=== PATIENT | female | born 1985 | race American Indian/Alaskan Native ===

== ENCOUNTER 2016-08-31 09:32 | Emergency (ER) | payer SELFPAY ==
[2016-08-31] MEDS ORDERED: NORCO 5/325 PO PRN (12:03)
--- NOTE | 2016-08-31 12:10 | Emergency Department Report ---
- General Chief complaint: Skin/Abscess/Foreign Body Stated complaint: ABCESS Time Seen by Provider: 08/31/16 12:03 Source: patient Mode of arrival: Ambulatory Limitations: No Limitations - History of Present Illness Initial comments: 30-year-old -[place] female comes in with complaint of abscess on the left side times a couple weeks. Patient reports that his recently gotten bigger and more in pain. She denies any fever or chills she does admit that she 's had this before in the past. Patient has no past medical history, currently takes no medication on a daily basis. She denies any drainage. She has not taken any pain medication nor has she used any warm compresses. - Related Data Previous Rx's Medication Instructions Recorded Last Taken Type Cephalexin [Keflex] 500 mg PO QID #40 capsule 08/31/16 Unknown Rx Ibuprofen [Motrin 800 MG tab] 800 mg PO Q8HR PRN #30 tablet 08/31/16 Unknown Rx Allergies Allergy/AdvReac Type Severity Reaction Status Date / Time No Known Allergies Allergy Verified 08/31/16 10:36 Abscess Boil HPI - HPI Chief Complaint: Skin/Abscess/Foreign Body Stated Complaint: ABCESS Time Seen by Provider: 08/31/16 12:03 Home Medications: Previous Rx's Medication Instructions Recorded Last Taken Type Cephalexin [Keflex] 500 mg PO QID #40 capsule 08/31/16 Unknown Rx Ibuprofen [Motrin 800 MG tab] 800 mg PO Q8HR PRN #30 tablet 08/31/16 Unknown Rx Allergies/Adverse Reactions: Allergies Allergy/AdvReac Type Severity Reaction Status Date / Time No Known Allergies Allergy Verified 08/31/16 10:36 ED Review of Systems ROS: Stated complaint: ABCESS Other details as noted in HPI Constitutional: denies: chills, fever Eyes: denies: eye pain, eye discharge, vision change ENT: denies: ear pain, throat pain Respiratory: denies: cough, shortness of breath, wheezing Skin: denies: rash, lesions ED Past Medical Hx - Social History Smoking Status: Never Smoker Substance Use Type: None - Medications Home Medications: Home Medications Medication Instructions Recorded Confirmed Last Taken Type Cephalexin [Keflex] 500 mg PO QID #40 capsule 08/31/16 Unknown Rx Ibuprofen [Motrin 800 MG tab] 800 mg PO Q8HR PRN #30 tablet 08/31/16 Unknown Rx ED Physical Exam - General Limitations: No Limitations General appearance: alert, in no apparent distress - Head Head exam: Present: atraumatic, normocephalic - Eye Eye exam: Present: normal appearance, PERRL, EOMI - Skin Skin exam: Present: warm, dry, intact, erythema ED Course Vital Signs 08/31/16 10:33 Temperature 98.3 F Pulse Rate 97 H Respiratory 18 Rate Blood Pressure 131/89 O2 Sat by Pulse 100 Oximetry ED Medical Decision Making - Medical Decision Making Patient's been evaluated by this provider in fast track. Discussed with patient that the cellulitis is not ready to twice a day 7 because is too indurated and is not fluctuant. Discussed with patient that we'll need to have warm compresses placed on the area at least 4-6 times a day. As well as starting an antibiotic that she'll need to take 4 times a day. She needs to return back to the emergency room within 24-48 hours for reevaluation. Discussed the patient we will give her ibuprofen for pain management. Patient verbalized understanding. Critical care attestation.: If time is entered above; I have spent that time in minutes in the direct care of this critically ill patient, excluding procedure time. ED Disposition Clinical Impression: Cellulitis of back [any part except buttock] Disposition: DISCHARGED TO HOME OR SELFCARE Is pt being admited?: No Does the pt Need Aspirin: No Condition: Stable Instructions: Cellulitis (ED) Additional Instructions: Please complete antibiotics as prescribed pain medication as prescribed follow up within 24-48 hours for reevaluation of the cellulitis. He need to apply warm compresses 4-6 times a day. Prescriptions: Cephalexin [Keflex] 500 mg PO QID #40 capsule Ibuprofen [Motrin 800 MG tab] 800 mg PO Q8HR PRN #30 tablet PRN Reason: Pain Referrals: PRIMARY CARE, [Primary Care Provider] - 3-5 Days Forms: Work/School Release Form(ED)
[2016-08-31 12:21] VITALS: BP 118/80
== END 2016-08-31 12:13 | disposition home or self-care (01) ==
LOC: ED 09:32
DX: L03.312 Cellulitis of back [any part except buttock and flank] (principal); Z79.1 Long term (current) use of non-steroidal anti-inflammatories (NSAID); Z79.2 Long term (current) use of antibiotics
CPT/HCPCS: 99282

== ENCOUNTER 2017-04-14 18:13 | Emergency (ER) | payer OTHER ==
[2017-04-14] MEDS ORDERED: NACL 0.9% 1000 ML 1,000 ML IV ONE (20:18)
[2017-04-14] MEDS ORDERED: CLEOCIN 900 MG/50 mL 900 MG/50 ML BAG IV ONE (20:24)
--- NOTE | 2017-04-14 20:29 | Emergency Department Report ---
- General Chief complaint: Skin/Abscess/Foreign Body Stated complaint: ABSCESS ON THE RIGHT SIDE OF HIP Time Seen by Provider: 04/14/17 20:13 Source: patient Mode of arrival: Ambulatory Limitations: No Limitations - History of Present Illness Initial comments: pt is a 31 y/o aaf with nmhx who presents for right hip pain with right buttock abscess x 1 week symptoms include pain swelling fever chills malaise, pt cannot tolerate sitting. MD complaint: abscess/boil Onset/Timin -: week(s) Tetanus Up to Date: yes Location: buttocks (right buttocks ) Severity: moderate Severity scale (0 -10): 8 Quality: burning, sharp Consistency: constant Improves with: none Worsens with: palpation, movement Context: none Associated symptoms: fever, chills, rigors, itching, nausea, malaise Treatments Prior to Arrival: none - Related Data Previous Rx's Medication Instructions Recorded Last Taken Type Cephalexin [Keflex] 500 mg PO QID #40 capsule 08/31/16 Unknown Rx Ibuprofen [Motrin 800 MG tab] 800 mg PO Q8HR PRN #30 tablet 08/31/16 Unknown Rx Clindamycin [Clindamycin CAP] 300 mg PO Q6H #40 capsule 04/14/17 Unknown Rx metFORMIN [Glucophage] 500 mg PO BID #60 tablet 04/14/17 Unknown Rx traMADol [Ultram 50 MG tab] 50 mg PO Q6HR PRN #21 tablet 04/14/17 Unknown Rx Allergies Allergy/AdvReac Type Severity Reaction Status Date / Time No Known Allergies Allergy Verified 04/14/17 19:08 Abscess Boil HPI - HPI Chief Complaint: Skin/Abscess/Foreign Body Stated Complaint: ABSCESS ON THE RIGHT SIDE OF HIP Time Seen by Provider: 04/14/17 20:13 Home Medications: Previous Rx's Medication Instructions Recorded Last Taken Type Cephalexin [Keflex] 500 mg PO QID #40 capsule 08/31/16 Unknown Rx Ibuprofen [Motrin 800 MG tab] 800 mg PO Q8HR PRN #30 tablet 08/31/16 Unknown Rx Clindamycin [Clindamycin CAP] 300 mg PO Q6H #40 capsule 04/14/17 Unknown Rx metFORMIN [Glucophage] 500 mg PO BID #60 tablet 04/14/17 Unknown Rx traMADol [Ultram 50 MG tab] 50 mg PO Q6HR PRN #21 tablet 04/14/17 Unknown Rx Allergies/Adverse Reactions: Allergies Allergy/AdvReac Type Severity Reaction Status Date / Time No Known Allergies Allergy Verified 04/14/17 19:08 ED Review of Systems ROS: Stated complaint: ABSCESS ON THE RIGHT SIDE OF HIP Other details as noted in HPI Constitutional: chills, fever, malaise Eyes: denies: eye pain, eye discharge, vision change ENT: denies: ear pain, throat pain Respiratory: denies: cough, shortness of breath, wheezing Cardiovascular: denies: chest pain, palpitations Endocrine: no symptoms reported Gastrointestinal: denies: abdominal pain, nausea, vomiting, diarrhea, constipation, hematemesis, melena, hematochezia Musculoskeletal: denies: back pain, joint swelling, arthralgia Skin: other (right buttocks abscess greater than 6 cm ) Neurological: denies: headache, weakness, paresthesias Psychiatric: denies: anxiety, depression Hematological/Lymphatic: denies: easy bleeding, easy bruising ED Past Medical Hx - Past Medical History Previous Medical History?: No - Surgical History Past Surgical History?: Yes Additional Surgical History: - Social History Smoking Status: Never Smoker Substance Use Type: None - Medications Home Medications: Home Medications Medication Instructions Recorded Confirmed Last Taken Type Cephalexin [Keflex] 500 mg PO QID #40 capsule 08/31/16 Unknown Rx Ibuprofen [Motrin 800 MG tab] 800 mg PO Q8HR PRN #30 tablet 08/31/16 Unknown Rx Clindamycin [Clindamycin CAP] 300 mg PO Q6H #40 capsule 04/14/17 Unknown Rx metFORMIN [Glucophage] 500 mg PO BID #60 tablet 04/14/17 Unknown Rx traMADol [Ultram 50 MG tab] 50 mg PO Q6HR PRN #21 tablet 04/14/17 Unknown Rx ED Physical Exam - General Limitations: No Limitations General appearance: alert, in no apparent distress - Head Head exam: Present: atraumatic - Eye Eye exam: Present: normal appearance - ENT ENT exam: Present: normal exam - Neck Neck exam: Present: normal inspection - Respiratory Respiratory exam: Present: normal lung sounds bilaterally. Absent: respiratory distress - Cardiovascular Cardiovascular Exam: Present: regular rate, tachycardia, normal heart sounds. Absent: systolic murmur, diastolic murmur, rubs, gallop - GI/Abdominal GI/Abdominal exam: Present: soft, normal bowel sounds. Absent: distended, tenderness, guarding, rebound, rigid, diminished bowel sounds, organomegaly, mass, bruit, pulsatile mass, hernia - Rectal Rectal exam: Present: deferred - Extremities Exam Extremities exam: Present: normal inspection, full ROM, normal capillary refill. Absent: pedal edema, joint swelling, calf tenderness - Back Exam Back exam: Present: normal inspection, full ROM. Absent: tenderness, CVA tenderness (R), CVA tenderness (L), muscle spasm, paraspinal tenderness, vertebral tenderness, rash noted - Neurological Exam Neurological exam: Present: alert, oriented X3, CN II-XII intact, normal gait, reflexes normal - Psychiatric Psychiatric exam: Present: normal affect, normal mood - Skin Skin exam: Present: warm, dry, other (right buttock abscess greater than 4 cm erythema pain drainaing purulent discharge, no crepitus ) ED Course Vital Signs 04/14/17 04/14/17 19:08 21:11 Temperature 98.8 F Pulse Rate 102 H Respiratory 16 18 Rate Blood Pressure 120/83 O2 Sat by Pulse 100 Oximetry - I & D Right Buttocks Type of Procedure: Simple Site: right upper buttocks Blade Size: 11 I & D Procedure: betadine prep, sterile drapes applied, sterile dressing applied , gauze wick placed Progress: right upper buttocks abscess 4x5 cm erythema painful erythema purulent drainage , site cleaned with betadine solution , anesthesia with 2% lidocaine 3 cc, incision with 11 blad x 2 cm , moderate purulent out to incision , blunt probbed with forceps, wound irrigated with sterile saline x 300 cc, wound pack with 1/4 inch iodoform, sterile dressing applied pt tolerated procudure with minimal distress, all bleeding is controlled , pt verbalized understanding and agreement with wound , discharge plan and follow up with Dr. Bowens, in 3 days or return sooner to emergency if symptoms of infection. ED Medical Decision Making - Lab Data Result diagrams: 04/14/17 20:35 04/14/17 20:35 Laboratory Tests 04/14/17 04/14/17 04/14/17 20:35 20:35 20:35 WBC 13.6 H RBC 3.95 Hgb 11.1 Hct 34.3 MCV 87 MCH 28 MCHC 33 RDW 14.4 Plt Count 403 Lymph % (Auto) 12.0 L [place] % (Auto) 10.2 H Eos % (Auto) 2.6 Baso % (Auto) 0.5 Lymph # 1.6 [place] # 1.4 H Eos # 0.4 Baso # 0.1 Seg Neutrophils % 74.7 H Seg Neutrophils # 10.1 H ESR 67 Sodium 130 L Potassium 4.0 Chloride 92.2 L Carbon Dioxide 22 Anion Gap 20 BUN 7 Creatinine 0.6 L Estimated GFR > 60 BUN/Creatinine Ratio 12 Glucose 449 H Lactic Acid 3.40 H* Calcium 9.0 Total Bilirubin 0.30 AST 13 ALT 22 Alkaline Phosphatase 147 H C-Reactive Protein 33.30 H Total Protein 7.3 Albumin 3.6 L Albumin/Globulin Ratio 1.0 Urine HCG, Qual 04/14/17 Unknown WBC RBC Hgb Hct MCV MCH MCHC RDW Plt Count Lymph % (Auto) [place] % (Auto) Eos % (Auto) Baso % (Auto) Lymph # [place] # Eos # Baso # Seg Neutrophils % Seg Neutrophils # ESR Sodium Potassium Chloride Carbon Dioxide Anion Gap BUN Creatinine Estimated GFR BUN/Creatinine Ratio Glucose Lactic Acid Calcium Total Bilirubin AST ALT Alkaline Phosphatase C-Reactive Protein Total Protein Albumin Albumin/Globulin Ratio Urine HCG, Qual Negative - Radiology Data Radiology results: report reviewed Difuss soft tissue edema and indruation in the midline , especially righ flutea subcutaneious tissues with focal soft tissue denisity 4.5. x 6cm right supragluteal region - Medical Decision Making pt is a 31 y/o aaf with nmhx who presents for right hip pain with right buttock abscess x 1 week symptoms include pain swelling fever chills malaise, pt cannot tolerate sitting. exam pt appears uncomfortable , right buttock abscess raised erythema firm purulent drainage, 4x5 cm, plan: cmp, cbc, crp, sed rate, lact acid, ua, hcg, bc x 2 ct abd/pelvis without, ivf, clindamycin ivpb, . ct: right supragluteal abscess 4.5x6cm , consulted ed attending, recommendation I&D , Abx, admit to hospitalist , pt for I&D of same , with iodoform packing pt tolerated same with minimal distress. wbc: 13.6, NA: 130.,glucose: 430mg /dl lactic acid 3.4, HCG; negative, pt advises that she cannot and will not be admitted into hospital , pt states she feels much better after I&D, pt counseled on risk of am including increased infection, and possible , pt demonstrates decision making capacity, is a/o x 3 , pt advised that she will have to sign out ama pt given strict instructions to return to emergency if symptoms worsen pt verbalized understanding and agreement with same. Pt signed out AMA , acknowledge counseling on Diagnsis, Hyperglycemia, and potential for worsen condition and even , pt verbalized understanding of of same but still insist on leaving hospital, pt given wound care instructions, pt will follow up pcp Dr. Bowens in 3 days for wound check pt given wound care instructions including symptoms of infection , abx, and follow up care pt verbalized agreement and understanding of same. pt for AMA at this time, pt demonstrates that she is a/o x 3, of normal mentationa demonstrates decision making capacity. Critical care attestation.: If time is entered above; I have spent that time in minutes in the direct care of this critically ill patient, excluding procedure time. ED Disposition Clinical Impression: Abscess, gluteal, right, Hyperglycemia Disposition: DC-09 OP ADMIT IP TO THIS HOSP Is pt being admited?: Yes Does the pt Need Aspirin: No Condition: Stable Instructions: Abscess (ED) Prescriptions: Clindamycin [Clindamycin CAP] 300 mg PO Q6H #40 capsule metFORMIN [Glucophage] 500 mg PO BID #60 tablet traMADol [Ultram 50 MG tab] 50 mg PO Q6HR PRN #21 tablet PRN Reason: Pain Referrals: PRIMARY CARE, [Referring] - 3-5 Days Forms: AMA Form Time of Disposition: 22:21 (pt signed out ama )
[2017-04-14] MEDS ORDERED: TORADOL IV ONE (21:06)
[2017-04-14 21:07] LABS: Basophils % (Auto) 0.5 % (0.0-1.8); Eosinophils % (Auto) 2.6 % (0.0-4.3); Hematocrit 34.3 % (30.3-42.9); Hemoglobin 11.1 gm/dl (10.1-14.3); Mean Corpuscular HGB Conc 33 % (30-34); Mean Corpuscular Hemoglobin 28 pg (28-32); Mean Corpuscular Volume 87 fl (79-97); Platelet Count 403 K/mm3 (140-440); Red Blood Count 3.95 M/mm3 (3.65-5.03); Red Cell Distribution Width 14.4 % (13.2-15.2); White Blood Count 13.6 K/mm3 (4.5-11.0)
[2017-04-14] MEDS ORDERED: TORADOL ONE (21:10)
[2017-04-14] MEDS ORDERED: XYLOCAINE 2% INFILTRATI ONE ×2 (21:12→21:14)
[2017-04-14 21:16] LABS: Alanine Aminotransferase 22 units/L (7-56); Albumin 3.6 g/dL (3.9-5); Alkaline Phosphatase 147 units/L (35-129); BUN/Creatinine Ratio 12; Blood Urea Nitrogen 7 mg/dL (7-17); Carbon Dioxide 22 mmol/L (22-30); Glucose 449 mg/dL (65-100); Total Protein 7.3 g/dL (6.3-8.2)
[2017-04-14 21:17] LABS: Anion Gap 20 mmol/L; Chloride 92.2 mmol/L (98-107); Sodium 130 mmol/L (137-145)
--- NOTE | 2017-04-14 21:27 | Cat Scan Report ---
FINAL REPORT EXAM: CT ABDOMEN PELVIS WO CON HISTORY: abscess greater than 6 cm buttocks TECHNIQUE: Spiral CT scanning of the abdomen and pelvis. No oral or IV contrast administered. Multiplanar reformations. PRIORS: None. FINDINGS: Abdomen: Examination limited due to lack of contrast administration. Visualized lung bases show minimal right pleural effusion. Otherwise, unremarkable. No radiopaque gallstones. Liver enlarged measuring approximately 23.5 cm in maximal craniocaudal dimension, without other focal abnormality. Spleen grossly unremarkable. Pancreas grossly unremarkable. Kidneys grossly unremarkable. Adrenal glands grossly unremarkable. Pelvis: Diffuse soft tissue edema and induration in the midline especially right gluteal subcutaneous tissues, with focal soft tissue density measuring approximately 4.5 x 6 cm in the right supragluteal region. No discrete or loculated fluid collection. Multiple enlarged lymph nodes in bilateral inguinal regions, largest measuring 1.5 x 3 cm in right inguinal region, may be reactive. Bowel grossly unremarkable, with large amount of retained stool. Appendix within normal limits. Trace amount of nonspecific, free fluid in the right pelvis. No loculated fluid collection. Abdominal aorta non-aneurysmal. IMPRESSION: 1. Findings which may represent nonspecific postinflammatory or phlegmonous change and cellulitis in the right gluteal subcutaneous tissues. 2. Hepatomegaly. 3. Constipation.
[2017-04-14 21:36] LABS: Erythrocyte Sedimentation Rate 67 mm/Hr (0-20)
[2017-04-14 22:54] VITALS: BP 107/57
== END 2017-04-14 22:51 | disposition left against medical advice (07) ==
LOC: ED 18:13
DX: L02.31 Cutaneous abscess of buttock (principal)
CPT/HCPCS: 10060; 36415; 74176; 80053; 81025; 82140; 85025; 85652; 86140; 87040; 96365; 96375; 99284; J1885; J7030

== ENCOUNTER 2017-09-01 14:49 | Emergency (ER) | payer OTHER ==
[2017-09-01 14:55] VITALS: BP 124/91
[2017-09-01] MEDS ORDERED: NORCO 7.5/325 PO ONE (15:46)
[2017-09-01] MEDS ORDERED: MOTRIN PO ONE (15:46)
[2017-09-01] MEDS ORDERED: XYLOCAINE 1% 20 mL INFILTRATI ONE (15:46)
--- NOTE | 2017-09-01 15:48 | Emergency Department Report ---
Blank Doc - Documentation Documentation: Patient is a 31-year-old female who is presenting with left thigh abscess. It's been several days that she's had increased pain and swelling. Patient states that it was a small amount of drainage today. And bloody. Patient denies any nausea vomiting diarrhea fever at this time. Patient removed to a treatment room for drainage
--- NOTE | 2017-09-01 16:05 | Emergency Department Report ---
Abscess Boil HPI - HPI Chief Complaint: Skin/Abscess/Foreign Body Stated Complaint: POSSIBLE ABSCESS ON LEFT LEG Time Seen by Provider: 09/01/17 15:25 Duration: >1 Week Location: Other (left buttock) History: Yes Pain, Yes Purulent Drainage, Yes Insect Bite (possibly, unsure), No Fever, No Numbness, No Foreign Body, No Previous History HPI: Patient is a 31-year-old female presents ED complaining of painful bump on her left buttock region. Patient states she stated that appeared over week ago. Patient states since then his thumb finger more painful. Patient states today just for comes in the ER [facility] the bump popped and she noticed some d /c. She denies fevers/chills/nausea vomiting Home Medications: Previous Rx's Medication Instructions Recorded Last Taken Type Cephalexin [Keflex] 500 mg PO QID #40 capsule 08/31/16 Unknown Rx Clindamycin [Clindamycin CAP] 300 mg PO Q6H #40 capsule 04/14/17 Unknown Rx metFORMIN [Glucophage] 500 mg PO BID #60 tablet 04/14/17 Unknown Rx traMADol [Ultram 50 MG tab] 50 mg PO Q6HR PRN #21 tablet 04/14/17 Unknown Rx HYDROcodone/APAP 5-325 [[place] 1 each PO Q6HR PRN #12 tablet 09/01/17 Unknown Rx 5/325] Ibuprofen [Motrin 800 MG tab] 800 mg PO Q8HR PRN #30 tablet 09/01/17 Unknown Rx Sulfamethoxazole/Trimethoprim 1 each PO BID #20 tablet 09/01/17 Unknown Rx [Bactrim DS TAB] Allergies/Adverse Reactions: Allergies Allergy/AdvReac Type Severity Reaction Status Date / Time No Known Allergies Allergy Verified 04/14/17 19:08 ED Review of Systems ROS: Stated complaint: POSSIBLE ABSCESS ON LEFT LEG Other details as noted in HPI Constitutional: denies: chills, fever Eyes: denies: eye pain, eye discharge, vision change ENT: denies: ear pain, throat pain Respiratory: denies: cough, shortness of breath, wheezing Cardiovascular: denies: chest pain, palpitations Endocrine: no symptoms reported Gastrointestinal: denies: abdominal pain, nausea, diarrhea Genitourinary: denies: urgency, dysuria, discharge Musculoskeletal: denies: back pain, joint swelling, arthralgia Skin: denies: rash, lesions Neurological: denies: headache, weakness, paresthesias Psychiatric: denies: anxiety, depression Hematological/Lymphatic: denies: easy bleeding, easy bruising ED Past Medical Hx - Past Medical History Previous Medical History?: No - Surgical History Additional Surgical History: - Social History Smoking Status: Never Smoker Substance Use Type: None - Medications Home Medications: Home Medications Medication Instructions Recorded Confirmed Last Taken Type Cephalexin [Keflex] 500 mg PO QID #40 capsule 08/31/16 Unknown Rx Clindamycin [Clindamycin CAP] 300 mg PO Q6H #40 capsule 04/14/17 Unknown Rx metFORMIN [Glucophage] 500 mg PO BID #60 tablet 04/14/17 Unknown Rx traMADol [Ultram 50 MG tab] 50 mg PO Q6HR PRN #21 tablet 04/14/17 Unknown Rx HYDROcodone/APAP 5-325 [[place] 1 each PO Q6HR PRN #12 tablet 09/01/17 Unknown Rx 5/325] Ibuprofen [Motrin 800 MG tab] 800 mg PO Q8HR PRN #30 tablet 09/01/17 Unknown Rx Sulfamethoxazole/Trimethoprim 1 each PO BID #20 tablet 09/01/17 Unknown Rx [Bactrim DS TAB] ED Abscess Boil Physical Exam - Exam General: Vital signs noted. No distress. Alert and acting appropriately. Front/Back of Body, Lg (Color): 1 - 4 cm cellulitic surrounding a lesion looks tanvi an insect bite. non flactullant, mild drainage Size: 4 cm Exam: Yes Tenderness, Yes Surrounding Cellulites/Erythema, Yes Normal Neurologic Exam, Yes Normal Circulation, No Fluctuance, No Lymphangitis, No Crepitation, No Heart Murmur I & D Note - I & D Note I & D Note: Patient positioned appropriately, 15cc lidocaine without epinephrine was used as a local anesthetic. #11 blade scalpal used for single incision. Additional local anesthetic injected into surrounding viable tissue prior to blunt dissection of loculated adhesions.very small drainage of pus mixed with blood. Wound packed with iodoform gauze. Procedure tolerated without complications. Wound dressed with sterile 4x4 guaze and paper tape. Pt tolerated procedure well. ED Course Vital Signs 09/01/17 14:53 Temperature 98.7 F Pulse Rate 111 H Respiratory 18 Rate Blood Pressure 124/91 O2 Sat by Pulse 97 Oximetry Critical care attestation.: If time is entered above; I have spent that time in minutes in the direct care of this critically ill patient, excluding procedure time. ED Medical Decision Making - Medical Decision Making 31-year-old female presents with insect bite versus cellulitis of the left buttock ED course: Patient received Motrin/norco for pain in triage. I&D attempted, see note Patient tolerated procedure well Discussed to follow up with primary care physician in 3-5 days Discussed acute wound care with patient to keep wound dry daily. Discussed to complete antibiotic dose. Vital signs are stable patient is in acute distress. Discussed the patient to apply heat compression 3 times a day. I discussed the patient is an worsening symptoms to return to ED immediately. ED Disposition Clinical Impression: Cellulitis and abscess of buttock Insect bite Qualifiers: Encounter type: initial encounter Qualified Code(s): W57.XXXA - Bitten or stung by nonvenomous insect and other nonvenomous arthropods, initial encounter Disposition: - TO HOME OR SELFCARE Is pt being admited?: No Does the pt Need Aspirin: No Condition: Stable Instructions: Cellulitis (ED), Insect Bite or Sting (ED), Abscess Incision and Drainage (ED), Abscess (ED) Additional Instructions: Make sure to follow up with the primary care physician as discussed. Take all your medications as you've been prescribed. If you have any worsening symptoms or develop new symptoms please return to ED immediately. Prescriptions: HYDROcodone/APAP 5-325 [[place] 5/325] 1 each PO Q6HR PRN #12 tablet PRN Reason: Pain Ibuprofen [Motrin 800 MG tab] 800 mg PO Q8HR PRN #30 tablet PRN Reason: Pain Sulfamethoxazole/Trimethoprim [Bactrim DS TAB] 1 each PO BID #20 tablet Referrals: PRIMARY CARE, [Primary Care Provider] - 3-5 Days [facility] [Outside] - 3-5 Days [facility] [Outside] - 3-5 Days Forms: Work/School Release Form(ED) Time of Disposition: 16:37
== END 2017-09-01 17:24 | disposition home or self-care (01) ==
LOC: ED 14:49
DX: L02.31 Cutaneous abscess of buttock (principal); L03.317 Cellulitis of buttock

== ENCOUNTER 2017-12-13 08:26 | Emergency (ER) | payer OTHER ==
[2017-12-13] MEDS ORDERED: CLEOCIN 600 MG/50 mL 600 MG/50 ML BAG IV ONE (12:05)
[2017-12-13] MEDS ORDERED: NACL 0.9% 1000 ML 1,000 ML IV ONE (12:05)
[2017-12-13] MEDS ORDERED: NORCO 7.5/325 PO ONE (12:06)
--- NOTE | 2017-12-13 12:24 | Emergency Department Report ---
Abscess Boil HPI - HPI Chief Complaint: Skin/Abscess/Foreign Body Stated Complaint: LEFT FLANK PAIN Time Seen by Provider: 12/13/17 12:02 Duration: 4 Days Location: Back Severity: Mild History: Yes Pain, No Fever, No Purulent Drainage, No Numbness, No Foreign Body , No Previous History, No Insect Bite HPI: This is a 32-year-old female nontoxic, well nourished in appearance, no acute signs of distress presents to the ED with c/o of left flank/rib pain with swelling x4 days. Patient stated has frequent abscess and last abscess she was admitted for sepsis. Patient stated she has not been taking her insulin. Patient stated that she had incision and drainage done in this site before. Patient denies any pur or drainage. Patient denies any fever, chills, headache , nausea, vomiting, chest pain, shortness of breathe, numbness, tingling. Patient denies any body aches. Patient denies any allergies. PMH includes DM. Home Medications: Previous Rx's Medication Instructions Recorded Last Taken Type Cephalexin [Keflex] 500 mg PO QID #40 capsule 08/31/16 Unknown Rx Clindamycin [Clindamycin CAP] 300 mg PO Q6H #40 capsule 04/14/17 Unknown Rx metFORMIN [Glucophage] 500 mg PO BID #60 tablet 04/14/17 Unknown Rx traMADol [Ultram 50 MG tab] 50 mg PO Q6HR PRN #21 tablet 04/14/17 Unknown Rx HYDROcodone/APAP 5-325 [Se[place]oard 1 each PO Q6HR PRN #12 tablet 09/01/17 Unknown Rx 5/325] Ibuprofen [Motrin 800 MG tab] 800 mg PO Q8HR PRN #30 tablet 09/01/17 Unknown Rx Sulfamethoxazole/Trimethoprim 1 each PO BID #20 tablet 09/01/17 Unknown Rx [Bactrim DS TAB] Acetaminophen/Codeine [Tylenol 1 tab PO Q6H PRN #15 tab 12/13/17 Unknown Rx /Codeine # 3 tab] Clindamycin [Clindamycin CAP] 300 mg PO Q6H 7 Days capsule 12/13/17 Unknown Rx Ibuprofen [Motrin] 600 mg PO Q8H PRN #30 tablet 12/13/17 Unknown Rx Insulin Aspart [Novolog] 10 ml SQ DAILY #2 vial 12/13/17 Unknown Rx Allergies/Adverse Reactions: Allergies Allergy/AdvReac Type Severity Reaction Status Date / Time No Known Allergies Allergy Verified 04/14/17 19:08 ED Review of Systems ROS: Stated complaint: LEFT FLANK PAIN Other details as noted in HPI Constitutional: denies: chills, fever Eyes: denies: eye pain, eye discharge, vision change ENT: denies: ear pain, throat pain Respiratory: denies: cough, shortness of breath, wheezing Cardiovascular: denies: chest pain, palpitations Endocrine: no symptoms reported Gastrointestinal: denies: abdominal pain, nausea, diarrhea Genitourinary: denies: urgency, dysuria, discharge Musculoskeletal: denies: back pain, joint swelling, arthralgia Skin: denies: rash, lesions Neurological: denies: headache, weakness, paresthesias Psychiatric: denies: anxiety, depression Hematological/Lymphatic: denies: easy bleeding, easy bruising ED Past Medical Hx - Past Medical History Previous Medical History?: Yes Hx Diabetes: Yes Additional medical history: boils - Surgical History Past Surgical History?: Yes Additional Surgical History: x 1 - Social History Smoking Status: Never Smoker Substance Use Type: Prescribed - Medications Home Medications: Home Medications Medication Instructions Recorded Confirmed Last Taken Type Cephalexin [Keflex] 500 mg PO QID #40 capsule 08/31/16 Unknown Rx Clindamycin [Clindamycin CAP] 300 mg PO Q6H #40 capsule 04/14/17 Unknown Rx metFORMIN [Glucophage] 500 mg PO BID #60 tablet 04/14/17 Unknown Rx traMADol [Ultram 50 MG tab] 50 mg PO Q6HR PRN #21 tablet 04/14/17 Unknown Rx HYDROcodone/APAP 5-325 [[place] 1 each PO Q6HR PRN #12 tablet 09/01/17 Unknown Rx 5/325] Ibuprofen [Motrin 800 MG tab] 800 mg PO Q8HR PRN #30 tablet 09/01/17 Unknown Rx Sulfamethoxazole/Trimethoprim 1 each PO BID #20 tablet 09/01/17 Unknown Rx [Bactrim DS TAB] Acetaminophen/Codeine [Tylenol 1 tab PO Q6H PRN #15 tab 12/13/17 Unknown Rx /Codeine # 3 tab] Clindamycin [Clindamycin CAP] 300 mg PO Q6H 7 Days capsule 12/13/17 Unknown Rx Ibuprofen [Motrin] 600 mg PO Q8H PRN #30 tablet 12/13/17 Unknown Rx Insulin Aspart [Novolog] 10 ml SQ DAILY #2 vial 12/13/17 Unknown Rx ED Abscess Boil Physical Exam - Exam General: Vital signs noted. No distress. Alert and acting appropriately. GENERAL: The patient is a well-developed, well-nourished in no apparent distress. Patient is alert and acting appropriately for age. Alert and oriented 3, no apparent distress, normal gait, atraumatic. HEENT: Head is normocephalic and atraumatic. PERRL, Extraocular muscles are intact. Pupils are equal, round, and reactive to light and accommodation. Nares appeared normal. Mouth is well hydrated and without lesions. Mucous membranes are moist. Posterior pharynx clear of any exudate or lesions. Mouth is well hydrated and without lesions. Tonsils not erythematous or swollen. Uvula midline. Tongue elevated. Mucous members are moist. Posterior pharynx clear, no exudate or lesions. Patent airways. NECK: Supple. No carotid bruits. No lymphadenopathy or thyromegaly.nontender. No meningitic signs are noted. LUNGS: Clear to auscultation. Non labor breathing. No intercostal retractions. Symmetrical with respiration, no wheezing, no rales, or crackles. HEART: Regular rate and rhythm without murmur, rubs or gallops. No reproducible. S1, S2 present, regular rate and rhythm without murmur, no rubs, no gallops. ABDOMEN: Soft, nontender, and nondistended. Positive bowel sounds. No hepatosplenomegaly was noted. No guarding or rebound tenderness, negative epigastric bruit. Negative psoas sign, negative moon sign, negative McBurneys sign EXTREMITIES: Without any cyanosis, clubbing, rash, lesions or edema. Peripheral pulses intact. Capillary refill less than 2 seconds. Full range of motion bilaterally. NEUROLOGIC: Cranial nerves II through XII are grossly intact. Alert and oriented x 3. Normal gait. Symmetrical strength and sensation. Reflexes 2+ throughout. Cerebellar testing normal. GCS score of 15. PSYCHIATRIC: Normal affect with no suicidal or homicidal ideations. Front/Back of Body, Lg (Color): 1 - 4 cm induration with no flutance noted. Tender to touch. No pus or drainage noted. Size: 4 cm Exam: Yes Tenderness, Yes Normal Neurologic Exam, Yes Normal Circulation, No Fluctuance, No Surrounding Cellulites/Erythema, No Lymphangitis, No Crepitation , No Heart Murmur I & D Note - I & D Note I & D Note: Under sterile field, I used Betadine to cleanse the area. I then used 1% Lidocaine plain with 25-gauge 5/8 needle to inject area for anesthetic purposes. Total volume injected 3 mL. I then used an 11 blade to make a 1 cm incision. About 10 mL's of purulent drainage has been noted. I then used a hemostat to break the abscess formation. I then used sterile 0.9% normal saline flush to flush the wound with total volume of 40 mL used. I then put a 1 /2 iodoform packing to the incision. A sterile 4 x 4 with tape has been applied as dressing. Bleeding is under control. Patient tolerated the procedure well with no signs of distress noted. ED Course Vital Signs 12/13/17 09:07 Temperature 98.4 F Pulse Rate 102 H Respiratory 18 Rate Blood Pressure 128/84 O2 Sat by Pulse 98 Oximetry - Reevaluation(s) Reevaluation #1: 12/13/17 12:25 Patient is speaking in full sentences with no signs of distress noted. - Consultations Consultation #1: 12/13/17 15:14 Patient has been consulted with Dr. Bernabe about patient history, physical exam, and labs and examined and screened patient and agrees to ED plan of care. Consultation #2: 12/13/17 16:16 Patient has been consulted with Dr. Magana (general surgeon) about patient history, physical exam, and labs and CT results and stated is okay to drain the abscess and to follow-up with him outpatient. Critical care attestation.: If time is entered above; I have spent that time in minutes in the direct care of this critically ill patient, excluding procedure time. ED Medical Decision Making - Lab Data Result diagrams: 12/13/17 12:11 12/13/17 12:11 - Medical Decision Making This is a 32-year-old female that presents with left flank abscess and diabetes. Patient is stable and was examined by me and Dr. Bernabe. Labs obtained. CT with contrast obtained. Dr. Magana was consulted and stated to drain and discharge with f/u. This is incision and drainage and has been performed and patient tolerated well. A sterile dressing has been applied. Patient was educated on proper wound care. Patient is discharged with Clindamycin and Tylenol with Codeine and was instructed not to operate any machinery while taking Tylenol with codein due to drowsiness. Patient was instructed to return in 2 days for packing removal. Patient also is requesting for insulin refill she stated that she takes NovoLog. Patient's boyfriend is currently at the bedside and stated he will get the patient home after discharge due to possible drowsiness of diludid. Patient's blood glucose prior to discharge is 261 due to insulin administration in the ED. Patient was instructed to refer to Follow-up with a primary care doctor in 3-5 days or if symptoms worsen and continue return to emergency room as soon as possible. At time of discharge, the patient does not seem toxic or ill in appearance. No acute signs of distress noted. Patient agrees to discharge treatment plan of care. No further questions noted by the patient. ED Disposition Clinical Impression: Abscess, Encounter for incision and drainage procedure Diabetes Qualifiers: Diabetes mellitus type: type 2 Diabetes mellitus vp & general counsel insulin use: with prison use Diabetes mellitus complication status: with unspecified complications Qualified Code(s): E11.8 - Type 2 diabetes mellitus with unspecified complications Disposition: DC-01 TO HOME OR SELFCARE Is pt being admited?: No Does the pt Need Aspirin: No Condition: Stable Instructions: Abscess Incision and Drainage (ED), Diabetes Mellitus Type 2 in Adults (ED), Abscess (ED) Additional Instructions: Follow-up with a primary care/surgeon doctor in 3-5 days or if symptoms worsen and continue return to emergency room as soon as possible. Return in 2 days for reassessment of the abscess and packing removal. Do not operate any machinery while taking Tylenol with codeine as this may cause her drowsiness. Prescriptions: Acetaminophen/Codeine [Tylenol /Codeine # 3 tab] 1 tab PO Q6H PRN #15 tab PRN Reason: Pain Clindamycin [Clindamycin CAP] 300 mg PO Q6H 7 Days capsule Ibuprofen [Motrin] 600 mg PO Q8H PRN #30 tablet PRN Reason: Pain Insulin Aspart [Novolog] 10 ml SQ DAILY #2 vial Referrals: PRIMARY CAREMD [Primary Care Provider] - 3-5 Days ANDREW KHAN MD [Staff Physician] - 3-5 Days [facility] [Outside] - 3-5 Days [facility] [Outside] - 3-5 Days JUDI MAGANA MD [Staff Physician] - 3-5 Days Forms: Work/School Release Form(ED)
[2017-12-13 12:39] LABS: Basophils # (Auto) 0.1 K/mm3 (0.0-0.1); Basophils % (Auto) 0.8 % (0.0-1.8); Eosinophils # (Auto) 0.2 K/mm3 (0.0-0.4); Eosinophils % (Auto) 1.3 % (0.0-4.3); Hematocrit 40.6 % (30.3-42.9); Hemoglobin 13.7 gm/dl (10.1-14.3); Lymphocytes # (Auto) 2.4 K/mm3 (1.2-5.4); Lymphocytes % (Auto) 17.5 % (13.4-35.0); Mean Corpuscular HGB Conc 34 % (30-34); Mean Corpuscular Hemoglobin 29 pg (28-32); Mean Corpuscular Volume 87 fl (79-97); Monocytes # (Auto) 0.8 K/mm3 (0.0-0.8); Monocytes % (Auto) 5.6 % (0.0-7.3); Platelet Count 320 K/mm3 (140-440); Red Blood Count 4.66 M/mm3 (3.65-5.03); Red Cell Distribution Width 14.1 % (13.2-15.2)
[2017-12-13] MEDS ORDERED: HumuLIN R IV ONE (12:40)
[2017-12-13 13:00] LABS: BUN/Creatinine Ratio 16; Blood Urea Nitrogen 8 mg/dL (7-17); Hemolysis Index 7
--- NOTE | 2017-12-13 15:07 | Cat Scan Report ---
CT ABDOMEN WITH CONTRAST INDICATION: Left flank abscess. COMPARISON: 04/14/2017 CT. FINDINGS: Abdomen CT performed following intravenous administration of 100 cc of Omnipaque 300. LUNG BASES: Stable mild cardiomegaly, subtle right pleural thickening/fluid posteriorly and a 5 mm right lower lobe calcified granuloma, axial image 12, series 2. Slightly generous fluid towards the cardiac base anteriorly also again noted. Right hemidiaphragm approximately 2 cm higher than the left. Nonspecific distal esophageal wall prominence/thickening, not excluded for gastroesophageal reflux and/or hiatal hernia, amongst others. ABDOMEN: Left hepatic lobe tip again wraps around the spleen in the left upper quadrant. Right hepatic lobe enlarged to approximately 21 cm in midclavicular length. Otherwise unremarkable liver, spleen, gallbladder, pancreas, adrenals, aorta and IVC. No hydronephrosis with approximately 1.1 cm right lower renal cortical cyst and slight left upper renal cortical scarring posteriorly. No ascites. Few shotty mesenteric and retroperitoneal lymph nodes again noted, predominantly subcentimeter. Nonopacified GI tract evaluation limited, though grossly nonobstructive. Normal retrocecal appendix. Mild outward hernia like bowing at the umbilicus noted with approximately 2.5 cm neck transversely, axial image 129, series 2. Left posterolateral flank skin thickening again noted with approximately 4.7 x 1.8 cm abscess/fluid collection deeper to it as on axial image 68, series 2, and approximately 4.3 cm craniocaudal with surrounding fat stranding. Right gluteal subcutaneous stranding/density appears improved; now approximately 4.3 cm remains as on axial image 115, series 2 without evidence of an abscess. Unremarkable bones. CONCLUSION: 1. Left posterolateral flank subcutaneous abscess noted deep to the skin fold in that location, as detailed above. No intra-abdominal extension. 2. Various other incidental findings, as above. Thank you for the opportunity to participate in this patient's care.
[2017-12-13] MEDS ORDERED: XYLOCAINE 1% 20 mL INFILTRATI ONE (15:57)
[2017-12-13] MEDS ORDERED: DILAUDID IV ONE (16:17)
[2017-12-13] MEDS ORDERED: ZOFRAN IV ONE (16:17)
[2017-12-13 17:35] VITALS: BP 127/84
== END 2017-12-13 18:24 | disposition home or self-care (01) ==
LOC: ED 08:26
DX: L02.211 Cutaneous abscess of abdominal wall (principal); E11.8 Type 2 diabetes mellitus with unspecified complications; Z79.4 Long term (current) use of insulin
CPT/HCPCS: 10060; 36415; 74160; 80048; 82140; 82550; 82962; 84703; 85025; 87040; 96365; 96375; 99284; J1170; J2405; J7030; Q9967

== ENCOUNTER 2019-04-04 22:11 | Inpatient (IN) | payer MEDICARE ==
[2019-04-04] MEDS ORDERED: VANCOMYCIN 2,000 MG in SODIUM CHLORIDE 0.9% 500 ML 500 ML IV ONE (23:40)
[2019-04-04] MEDS ORDERED: SODIUM CHLORIDE 0.9% 1000 ML IV SOLN IV ONE (23:40)
[2019-04-04] MEDS ORDERED: MORPHINE 4 MG/1 ML INJ IV ONE (23:42)
[2019-04-04] MEDS ORDERED: ACETAMINOPHEN 325 MG TAB PO ONE (23:42)
--- NOTE | 2019-04-04 23:43 | Emergency Department Report ---
ED Lower Extremity HPI - General Chief Complaint: Dizziness Stated Complaint: LEFT FOOT SWELLING, CHILLS, LIGHTHEADED Time Seen by Provider: 04/04/19 23:18 Source: patient, RN notes reviewed, old records reviewed Mode of arrival: Ambulatory Limitations: No Limitations - History of Present Illness Initial Comments: This is a 33-year-old female. I have evaluated this patient in the past. Her past medical history includes diabetes, lower extremity cellulitis. She does not have a local primary care doctor. She presents to the ER with a complaint of left lower extremity swelling, discharge, warmth, malaise, fatigue. Symptoms present over the past 2-3 days. They're constant. They do not radiate anywhere. There are getting worse. Pain increases with palpation, and decreases with rest. She thinks she accidentally dropped a pot on her foot a few days ago. Complaint: other -: days(s) Injury: Foot: Left Type of Injury: blunt Place: home Severity: moderate Improves With: rest Worsens With: movement, palpation Context: direct blow - Related Data Previous Rx's Medication Instructions Recorded Last Taken Type Lispro Insulin [HumaLOG] 0 unit SUB-Q ACHS 30 Days units 05/03/18 Unknown Rx Allergies Allergy/AdvReac Type Severity Reaction Status Date / Time No Known Allergies Allergy Verified 04/14/17 19:08 ED Review of Systems ROS: Stated complaint: LEFT FOOT SWELLING, CHILLS, LIGHTHEADED Other details as noted in HPI Constitutional: chills, malaise, weakness. denies: fever Eyes: denies: eye discharge ENT: denies: congestion Respiratory: denies: wheezing Cardiovascular: denies: syncope Gastrointestinal: denies: abdominal pain Genitourinary: denies: dysuria Musculoskeletal: joint swelling, arthralgia, myalgia Skin: rash, lesions Neurological: weakness Psychiatric: anxiety ED Past Medical Hx - Past Medical History Previous Medical History?: Yes Hx Hypertension: Yes Hx Congestive Heart Failure: No Hx Diabetes: Yes Hx Asthma: No Additional medical history: boils - Surgical History Past Surgical History?: Yes Additional Surgical History: x 1, Left foot surgery - Social History Smoking Status: Never Smoker Substance Use Type: None - Medications Home Medications: Home Medications Medication Instructions Recorded Confirmed Last Taken Type Lispro Insulin [HumaLOG] 0 unit SUB-Q ACHS 30 Days units 05/03/18 04/05/19 Unk nown Rx ED Physical Exam - General Limitations: No Limitations General appearance: alert, in no apparent distress, obese - Head Head exam: Present: atraumatic, normocephalic - Eye Eye exam: Present: normal appearance, EOMI - ENT ENT exam: Present: normal exam, normal orophraynx, mucous membranes moist, normal external ear exam - Neck Neck exam: Present: normal inspection, full ROM. Absent: tenderness, meningismus - Respiratory Respiratory exam: Present: normal lung sounds bilaterally. Absent: respiratory distress - Cardiovascular Cardiovascular Exam: Present: normal rhythm, tachycardia, normal heart sounds. Absent: systolic murmur, diastolic murmur, rubs, gallop - GI/Abdominal GI/Abdominal exam: Present: soft. Absent: distended, tenderness, guarding, rebound, rigid, pulsatile mass - Extremities Exam Extremities exam: Present: full ROM, tenderness, pedal edema, other (2+ pulses noted in the bilateral upper, lower extremities. There is no long bone tenderness. Musculoskeletal compartments are soft. The pelvis is stable.). Absent: normal inspection (on the left lateral plantar and dorsal aspect of the foot, there is swelling and tenderness. There is warmth. There is ecchymosis noted to the plantar lateral aspect of the left foot. There is some skin discoloration. The compartments are soft. Anterior tibial compartment soft. Calf and left lower extremity nontender. Anterior lower extremity warm.), calf tenderness - Back Exam Back exam: Present: normal inspection, full ROM. Absent: tenderness, CVA tenderness (R), CVA tenderness (L), paraspinal tenderness, vertebral tenderness - Neurological Exam Neurological exam: Present: alert, other (there is no facial droop. The tongue is midline. Extraocular movements are intact bilaterally. Patient speaking in full complete sentences. Shoulder shrug is intact bilaterally. Hearing is grossly intact bilaterally. Visual acuity intact to finger counting and color perception at a close distance. 5/5 strength 4 extremities. Sensation intact to light touch in 4 extremities.). Absent: motor sensory deficit - Psychiatric Psychiatric exam: Present: normal affect, normal mood - Skin Skin exam: Present: warm ED Course Vital Signs 04/04/19 04/04/19 04/04/19 19:20 19:30 19:40 Temperature Pulse Rate 68 67 72 Respiratory 18 19 9 L Rate Blood Pressure 149/81 149/81 152/91 Blood Pressure [Left] O2 Sat by Pulse 99 99 99 Oximetry 04/04/19 04/04/19 04/04/19 20:04 20:10 20:20 Temperature Pulse Rate 70 78 79 Respiratory 15 18 17 Rate Blood Pressure 157/76 116/55 102/67 Blood Pressure [Left] O2 Sat by Pulse 97 98 Oximetry 04/04/19 04/04/19 04/04/19 20:30 20:40 21:08 Temperature Pulse Rate 79 60 Respiratory 14 12 Rate Blood Pressure 102/67 72/45 90/53 Blood Pressure [Left] O2 Sat by Pulse 97 99 93 Oximetry 04/04/19 04/04/19 04/04/19 21:10 21:20 21:30 Temperature Pulse Rate 77 Respiratory 18 Rate Blood Pressure 90/53 111/54 61/31 Blood Pressure [Left] O2 Sat by Pulse 99 97 94 Oximetry 04/04/19 04/04/19 04/04/19 21:40 21:50 22:00 Temperature Pulse Rate 72 83 72 Respiratory 20 26 H 21 Rate Blood Pressure 67/34 96/47 71/43 Blood Pressure [Left] O2 Sat by Pulse 94 Oximetry 04/04/19 04/04/19 04/05/19 22:10 22:16 00:23 Temperature 99.8 F H Pulse Rate 70 108 H Respiratory 22 20 20 Rate Blood Pressure 81/49 118/77 Blood Pressure [Left] O2 Sat by Pulse 98 99 98 Oximetry 04/05/19 03:02 Temperature Pulse Rate 100 H Respiratory 20 Rate Blood Pressure Blood Pressure 101/53 [Left] O2 Sat by Pulse 98 Oximetry - Consultations Consultation #1: 04/05/19 01:32 d/w Dr Kyung Lal, orthopedics human resources operations manager, he'll see the patient in the morning and consultation. Hospitalist informed. ED Lower Extremity MDM - Lab Data Result diagrams: 04/04/19 23:14 04/04/19 23:14 Vital Signs 04/04/19 22:16 Temperature 99.8 F H Pulse Rate 108 H Respiratory 20 Rate Blood Pressure 118/77 O2 Sat by Pulse 99 Oximetry Lab Results 04/04/19 04/04/19 04/04/19 Range/Units 23:14 23:14 23:22 WBC 16.7 H (4.5-11.0) K/mm3 RBC 4.11 (3.65-5.03) M/mm3 Hgb 12.0 (10.1-14.3) gm/dl Hct 35.4 (30.3-42.9) % MCV 86 (79-97) fl MCH 29 (28-32) pg MCHC 34 (30-34) % RDW 13.1 L (13.2-15.2) % Plt Count 413 (140-440) K/mm3 Lymph % (Auto) 10.6 L (13.4-35.0) % [place] % (Auto) 6.6 (0.0-7.3) % Eos % (Auto) 1.6 (0.0-4.3) % Baso % (Auto) 0.5 (0.0-1.8) % Lymph # 1.8 (1.2-5.4) K/mm3 [place] # 1.1 H (0.0-0.8) K/mm3 Eos # 0.3 (0.0-0.4) K/mm3 Baso # 0.1 (0.0-0.1) K/mm3 Seg Neutrophils % 80.7 H (40.0-70.0) % Seg Neutrophils # 13.5 H (1.8-7.7) K/mm3 ESR 88 (0-20) mm/Hr APTT (24.2-36.6) Sec. VBG pH (7.320-7.420) Sodium 128 L (137-145) mmol/L Potassium 3.3 L (3.6-5.0) mmol/L Chloride 92.8 L (98-107) mmol/L Carbon Dioxide 20 L (22-30) mmol/L Anion Gap 19 mmol/L BUN 6 L (7-17) mg/dL Creatinine 0.7 (0.7-1.2) mg/dL Estimated GFR > 60 ml/min BUN/Creatinine Ratio 9 % Glucose 422 H (65-100) mg/dL Lactic Acid (0.7-2.0) mmol/L Calcium 8.9 (8.4-10.2) mg/dL Magnesium (1.7-2.3) mg/dL Total Bilirubin 0.40 (0.1-1.2) mg/dL AST 11 (5-40) units/L ALT 11 (7-56) units/L Alkaline Phosphatase 157 H (35-129) units/L Total Creatine Kinase (30-135) units/L Total Protein 8.8 H (6.3-8.2) g/dL Albumin 3.9 (3.9-5) g/dL Albumin/Globulin Ratio 0.8 % HCG, Qual Negative (Negative) 04/04/19 04/04/19 04/04/19 Range/Units 23:49 23:49 23:49 WBC (4.5-11.0) K/mm3 RBC (3.65-5.03) M/mm3 Hgb (10.1-14.3) gm/dl Hct (30.3-42.9) % MCV (79-97) fl MCH (28-32) pg MCHC (30-34) % RDW (13.2-15.2) % Plt Count (140-440) K/mm3 Lymph % (Auto) (13.4-35.0) % [place] % (Auto) (0.0-7.3) % Eos % (Auto) (0.0-4.3) % Baso % (Auto) (0.0-1.8) % Lymph # (1.2-5.4) K/mm3 [place] # (0.0-0.8) K/mm3 Eos # (0.0-0.4) K/mm3 Baso # (0.0-0.1) K/mm3 Seg Neutrophils % (40.0-70.0) % Seg Neutrophils # (1.8-7.7) K/mm3 ESR (0-20) mm/Hr APTT 34.1 (24.2-36.6) Sec. VBG pH (7.320-7.420) Sodium (137-145) mmol/L Potassium (3.6-5.0) mmol/L Chloride (98-107) mmol/L Carbon Dioxide (22-30) mmol/L Anion Gap mmol/L BUN (7-17) mg/dL Creatinine (0.7-1.2) mg/dL Estimated GFR ml/min BUN/Creatinine Ratio % Glucose (65-100) mg/dL Lactic Acid 1.60 (0.7-2.0) mmol/L Calcium (8.4-10.2) mg/dL Magnesium 1.90 (1.7-2.3) mg/dL Total Bilirubin (0.1-1.2) mg/dL AST (5-40) units/L ALT (7-56) units/L Alkaline Phosphatase (35-129) units/L Total Creatine Kinase 67 (30-135) units/L Total Protein (6.3-8.2) g/dL Albumin (3.9-5) g/dL Albumin/Globulin Ratio % HCG, Qual (Negative) 04/04/19 Range/Units 23:49 WBC (4.5-11.0) K/mm3 RBC (3.65-5.03) M/mm3 Hgb (10.1-14.3) gm/dl Hct (30.3-42.9) % MCV (79-97) fl MCH (28-32) pg MCHC (30-34) % RDW (13.2-15.2) % Plt Count (140-440) K/mm3 Lymph % (Auto) (13.4-35.0) % [place] % (Auto) (0.0-7.3) % Eos % (Auto) (0.0-4.3) % Baso % (Auto) (0.0-1.8) % Lymph # (1.2-5.4) K/mm3 [place] # (0.0-0.8) K/mm3 Eos # (0.0-0.4) K/mm3 Baso # (0.0-0.1) K/mm3 Seg Neutrophils % (40.0-70.0) % Seg Neutrophils # (1.8-7.7) K/mm3 ESR (0-20) mm/Hr APTT (24.2-36.6) Sec. VBG pH 7.354 (7.320-7.420) Sodium (137-145) mmol/L Potassium (3.6-5.0) mmol/L Chloride (98-107) mmol/L Carbon Dioxide (22-30) mmol/L Anion Gap mmol/L BUN (7-17) mg/dL Creatinine (0.7-1.2) mg/dL Estimated GFR ml/min BUN/Creatinine Ratio % Glucose (65-100) mg/dL Lactic Acid (0.7-2.0) mmol/L Calcium (8.4-10.2) mg/dL Magnesium (1.7-2.3) mg/dL Total Bilirubin (0.1-1.2) mg/dL AST (5-40) units/L ALT (7-56) units/L Alkaline Phosphatase (35-129) units/L Total Creatine Kinase (30-135) units/L Total Protein (6.3-8.2) g/dL Albumin (3.9-5) g/dL Albumin/Globulin Ratio % HCG, Qual (Negative) - EKG Data -: EKG Interpreted by Me EKG shows normal: sinus rhythm Rate: tachycardia - EKG Data 04/05/19 00:53 This EKG shows sinus tachycardia, QTC 453 ms, poor R wave progression, atrial enlargement, motion artifact, EKG not consistent with ST elevation myocardial infarction. - Radiology Data Radiology results: pending, report reviewed, image reviewed - Medical Decision Making Differential diagnosis, including but not limited to: Cellulitis, abscess, osteomyelitis, myositis, diabetic ketoacidosis, sepsis Assessment and plan: 33-year-old female with evidence of left lower extremity cellulitis, necrosis, meeting sepsis criteria, manifested by tachycardia, low- grade fever, and leukocytosis. She has equal pulses, and she is neurovascularly intact. We've recommended admission to the hospital for IV antibiotics, fluids, pain control. Case is presented to the Hospital physician, Dr. Andersen who has accepted the patient to the medical service. Initially contacted general surgery on-call, Dr. Lopez, who states that pedal infections are not in his scope of practice and recommends contacting vascular surgery I did not feel that this was an appropriate vascular surgery consult given presence of robust pulses but discussed with vascular surgery Dr Morris Greenberg anyhow, and reiterated that this is not an appropriate vascular surgery consult Paged out to orthopedics human resources operations manager Dr Lal x 2, no response thus far Dr Andersen indicates shell follow up with surgical dental assistant Critical Care Time: Yes Critical care time in (mins) excluding proc time.: 35 Critical care attestation.: If time is entered above; I have spent that time in minutes in the direct care of this critically ill patient, excluding procedure time. ED Disposition Clinical Impression: Sepsis affecting skin, Hyperglycemia, Diabetes mellitus with foot ulcer Disposition: OP ADMIT IP TO THIS HOSP Is pt being admited?: Yes Does the pt Need Aspirin: No Condition: Serious
[2019-04-04] MEDS ORDERED: PIPERACIL/TAZOBACTA 4.5/NS 100 4.5 GM/100 ML VIAL IV SCH (23:45)
[2019-04-04] MEDS ORDERED: VANCOMYCIN PHARMACY TO DOSE IV SCH (23:45)
[2019-04-05 00:06] LABS: Basophils # (Auto) 0.1 K/mm3 (0.0-0.1); Basophils % (Auto) 0.5 % (0.0-1.8); Eosinophils # (Auto) 0.3 K/mm3 (0.0-0.4); Eosinophils % (Auto) 1.6 % (0.0-4.3); Hematocrit 35.4 % (30.3-42.9); Lymphocytes # (Auto) 1.8 K/mm3 (1.2-5.4); Lymphocytes % (Auto) 10.6 % (13.4-35.0); Mean Corpuscular HGB Conc 34 % (30-34); Mean Corpuscular Volume 86 fl (79-97); Monocytes # (Auto) 1.1 K/mm3 (0.0-0.8); Monocytes % (Auto) 6.6 % (0.0-7.3); Platelet Count 413 K/mm3 (140-440); Red Blood Count 4.11 M/mm3 (3.65-5.03); Red Cell Distribution Width 13.1 % (13.2-15.2)
[2019-04-05 00:33] LABS: Alanine Aminotransferase 11 units/L (7-56); Albumin 3.9 g/dL (3.9-5); BUN/Creatinine Ratio 9; Blood Urea Nitrogen 6 mg/dL (7-17); Calcium 8.9 mg/dL (8.4-10.2); Hemolysis Index 5
[2019-04-05] MEDS ORDERED: POTASSIUM CHLORIDE ER 20 MEQ TAB PO ONE (00:44)
[2019-04-05] MEDS ORDERED: INSULIN REGULAR, HUMAN 100 UNITS/1 ML IV ONE (00:44)
[2019-04-05 00:49] LABS: Erythrocyte Sedimentation Rate 88 mm/Hr (0-20)
[2019-04-05 01:22] LABS: C-Reactive Protein 16.1 mg/dL (0.00-1.30)
[2019-04-05] MEDS ORDERED: ACETAMINOPHEN 325 MG TAB PO PRN (01:40)
[2019-04-05] MEDS ORDERED: DEXTROSE 50% IN WATER (25GM) 50 ML SYRINGE IV PRN (01:40)
--- NOTE | 2019-04-05 01:57 | XRay Report ---
XR tibia fibula 2V LT INDICATION / CLINICAL INFORMATION: left leg infection. COMPARISON: None available. FINDINGS: BONES/JOINT(S): No acute fracture or subluxation. No significant degenerative changes. No focal bone lysis to suggest osteomyelitis. SOFT TISSUES: Mild diffuse soft tissue swelling. No radiopaque foreign bodies or soft tissue gas. ADDITIONAL FINDINGS: None. Signer Name: Hilton Baltazar MD Signed: 04/05/2019 1:53 AM Workstation Name: [email or web address]
--- NOTE | 2019-04-05 01:57 | History and Physical Report ---
History of Present Illness Date of examination: 04/05/19 Date of admission: 04/05/2019 Chief complaint: left foot infection History of present illness: 33-year-old -[place] female with history of diabetes and cellulitis of left lower extremity presents to [facility] ED with complaints of left lower extremity swelling, malodorous drainage, and warmth for the past 3 days. Approximately one week ago patient noticed that her lower extremities were swollen (L>R). She began soaking her feet in water and Epsom salt, and elevated her feet nightly. About 3 days ago she examine her feet and noticed that her the top layer of the dermis had peeled away. She also noticed that the wound was malodorous with purulent drainage. She started experiencing increased pain in her left foot and was unable to walk properly. After no improvement in 3 days she decided to come in for further evaluation and treatment. Patient states that she is for the most part compliant with meds and checks her blood sugar weekly basis. She states that her normal sugar reading is around 250; except for when she doesn't eat right , her blood sugar will be elevated in the low to mid 300s. Review of medical records shows that the patient was admitted and treated for left lower extremity cellulitis in October 2017. Since October 2017 patient states that she has had left foot surgery 3, which includes I&D and skin grafting. Denies: fever, n/v/d, headache Past History Past Medical History: diabetes, other (boils) Past Surgical History: (x1), Other (left foot surgery x3) Social history: lives with family Family history: no significant family history Medications and Allergies Allergies Allergy/AdvReac Type Severity Reaction Status Date / Time No Known Allergies Allergy Verified 04/14/17 19:08 Home Medications Medication Instructions Recorded Confirmed Last Taken Type traMADol [Ultram 50 MG tab] 50 mg PO Q6HR PRN #21 tablet 04/14/17 Unknown Rx Acetaminophen/Codeine [Tylenol 1 tab PO Q6H PRN #15 tab 12/13/17 Unknown Rx /Codeine # 3 tab] Ibuprofen [Motrin 600 MG tab] 600 mg PO Q8H PRN #30 tablet 12/13/17 Unknown Rx Insulin Glargine [Lantus VIAL] 28 units SUB-Q BID 30 Days units 05/03/18 U nknown Rx Linezolid [Zyvox] 600 mg PO BID #20 tablet 05/03/18 Unknown Rx Lispro Insulin [HumaLOG] 0 unit SUB-Q ACHS 30 Days units 05/03/18 Unknown Rx oxyCODONE /ACETAMINOPHEN [Percocet 1 tab PO TID PRN #15 tablet 05/03/18 Unknown Rx 5/325 mg] Active Meds: Active Medications Acetaminophen (Tylenol) 650 mg PO Q4H PRN PRN Reason: Pain MILD(1-3)/Fever >100.5/ANDERSON Acetaminophen/Hydrocodone Bitart ([place] 5/325) 2 each PO Q6H PRN PRN Reason: Pain, Moderate (4-6) Dextrose (D50w (25gm) Syringe) 50 ml IV PRN PRN PRN Reason: Hypoglycemia Potassium Chloride (Kcl 10meq/100ml) 10 meq in 100 mls @ 100 mls/hr IV Q1H BA Stop: 04/05/19 02:59 Sodium Chloride (Nacl 0.9% 1000 Ml) 1,000 mls @ 100 mls/hr IV DIRECT BA Insulin Glargine (Lantus) 28 units SUB-Q QAMDIAB BA Insulin Human Lispro (Humalog) 0 unit SUB-Q ACHS BA; Protocol Ondansetron HCl (Zofran) 4 mg IV Q6H PRN PRN Reason: Nausea And Vomiting Sodium Chloride (Sodium Chloride Flush Syringe 10 Ml) 10 ml IV BID BA Sodium Chloride (Sodium Chloride Flush Syringe 10 Ml) 10 ml IV PRN PRN PRN Reason: LINE FLUSH Review of Systems All systems: negative Constitutional: fatigue, malaise Musculoskeletal: other (left lower extremity edema) Integumentary: wounds (left foot wound with purulent drainage rales) Exam - Physical Exam Narrative exam: Physical exam General appearance: Present: No acute distress, alert and oriented 3, obese, pleasant, adult -[place] female - EENT Eyes: Present: PERRL, EOM intact, ENT: hearing intact, normal dentition - Neck Neck: Present: supple, normal ROM - Respiratory Respiratory effort: Non-labored Respiratory: CTA - Cardiovascular Heart rate: 102 (bpm) Rhythm: ST Heart Sounds: Present: - Extremities Extremities: no ischemia, pulses intact, pedal edema, swelling and tenderness to left lateral plantar and dorsal of the foot - Peripheral Assessment Peripheral Pulses: within normal limits - Abdominal General gastrointestinal: soft, non-tender, normal bowel sounds - Integumentary Integumentary: Present: warm, dry, - Musculoskeletal Musculoskeletal: Able to move all extremities -Neurological Neurological: CN II-XII grossly intact - Psychiatric Psychiatric: cooperative - Constitutional Vitals: Temp Pulse Resp BP Pulse Ox 99.8 F H 108 H 20 118/77 99 04/04/19 22:16 04/04/19 22:16 04/04/19 22:16 04/04/19 22:16 04/04/19 22:16 Results - Labs CBC & Chem 7: 04/04/19 23:14 04/04/19 23:14 Labs: Laboratory Last Values WBC 16.7 K/mm3 (4.5-11.0) H 04/04/19 23:14 RBC 4.11 M/mm3 (3.65-5.03) 04/04/19 23:14 Hgb 12.0 gm/dl (10.1-14.3) 04/04/19 23:14 Hct 35.4 % (30.3-42.9) 04/04/19 23:14 MCV 86 fl (79-97) 04/04/19 23:14 MCH 29 pg (28-32) 04/04/19 23:14 MCHC 34 % (30-34) 04/04/19 23:14 RDW 13.1 % (13.2-15.2) L 04/04/19 23:14 Plt Count 413 K/mm3 (140-440) 04/04/19 23:14 Lymph % (Auto) 10.6 % (13.4-35.0) L 04/04/19 23:14 [place] % (Auto) 6.6 % (0.0-7.3) 04/04/19 23:14 Eos % (Auto) 1.6 % (0.0-4.3) 04/04/19 23:14 Baso % (Auto) 0.5 % (0.0-1.8) 04/04/19 23:14 Lymph # 1.8 K/mm3 (1.2-5.4) 04/04/19 23:14 [place] # 1.1 K/mm3 (0.0-0.8) H 04/04/19 23:14 Eos # 0.3 K/mm3 (0.0-0.4) 04/04/19 23:14 Baso # 0.1 K/mm3 (0.0-0.1) 04/04/19 23:14 Seg Neutrophils % 80.7 % (40.0-70.0) H 04/04/19 23:14 Seg Neutrophils # 13.5 K/mm3 (1.8-7.7) H 04/04/19 23:14 ESR 88 mm/Hr (0-20) 04/04/19 23:14 APTT 34.1 Sec. (24.2-36.6) 04/04/19 23:49 VBG pH 7.354 (7.320-7.420) 04/04/19 23:49 Sodium 128 mmol/L (137-145) L 04/04/19 23:14 Potassium 3.3 mmol/L (3.6-5.0) L 04/04/19 23:14 Chloride 92.8 mmol/L (98-107) L 04/04/19 23:14 Carbon Dioxide 20 mmol/L (22-30) L 04/04/19 23:14 19 mmol/L 04/04/19 23:14 BUN 6 mg/dL (7-17) L 04/04/19 23:14 0.7 mg/dL (0.7-1.2) 04/04/19 23:14 Estimated GFR > 60 ml/min 04/04/19 23:14 9 % 04/04/19 23:14 Glucose 422 mg/dL (65-100) H 04/04/19 23:14 Lactic Acid 1.60 mmol/L (0.7-2.0) 04/04/19 23:49 Calcium 8.9 mg/dL (8.4-10.2) 04/04/19 23:14 Magnesium 1.90 mg/dL (1.7-2.3) 04/04/19 23:49 0.40 mg/dL (0.1-1.2) 04/04/19 23:14 AST 11 units/L (5-40) 04/04/19 23:14 ALT 11 units/L (7-56) 04/04/19 23:14 157 units/L (35-129) H 04/04/19 23:14 67 units/L (30-135) 04/04/19 23:49 16.10 mg/dL (0.00-1.30) H 04/04/19 23:49 8.8 g/dL (6.3-8.2) H 04/04/19 23:14 3.9 g/dL (3.9-5) 04/04/19 23:14 0.8 % 04/04/19 23:14 HCG, Qual Negative (Negative) 04/04/19 23:22 - Imaging and Cardiology Imaging and Cardiology: Left Foot XR: pending Assessment and Plan Assessment and plan: 33-year-old -[place] female with history of diabetes and cellulitis of left lower extremity presents to [facility] ED with complaints of left lower extremity swelling, malodorous drainage, and warmth the past 3 days. Left Foot Infection (diabetic) -Left foot XR pending -History of cellulitis of left lower extremity -History of left foot surgery x3 -Swelling and tenderness to left lower extremirt -Swelling and tenderness to lateral plantar and dorsal of left foot -Wound is malodorous with purulent drainage -Dr. Lal consulted and will see pt in am Leukocytosis -WBC 16.7 -Afebrile -Likely secondary to left foot infection -On IV abx -Continue to monitor CBC DM2 -With hyperglycemia -BG on admission 422 -HgbA1c pending -SSI coverage and scheduled Lantus Hypokalemia -3.3 on admission -Repleted -Continue to monitor electrolytes, replete prn Hyponatremia -Na on admission 128 -Slowly correct Na with IVF -Continue to monitor replete prn DVT PPX -on Lovenox Advance Directives: No VTE prophylaxis?: Chemical Plan of care discussed with patient/family: Yes
--- NOTE | 2019-04-05 01:58 | XRay Report ---
XR foot 3+V LT INDICATION / CLINICAL INFORMATION: left footinfection. COMPARISON: None available. FINDINGS: BONES/JOINT(S): No acute fracture or subluxation. No significant degenerative changes. No focal bone lysis to suggest osteomyelitis. SOFT TISSUES: Mild diffuse soft tissue swelling. No radiopaque foreign bodies or soft tissue gas. ADDITIONAL FINDINGS: None. Signer Name: Hilton Baltazar MD Signed: 04/05/2019 1:53 AM Workstation Name: [id number]
[2019-04-05] MEDS: HYDROcodone/ACETAMINOPHEN 5-325 MG TAB PO PRN ×2 (05:13→18:36)
[2019-04-05] MEDS: POTASSIUM CHLORIDE 10 MEQ 10 MEQ/100 ML BAG IV SCH (05:38)
[2019-04-05] MEDS ORDERED: PIPERACILLIN/TAZOBACTAM 3.375 3.375 GM/50 ML BAG IV SCH (06:00)
[2019-04-05] MEDS: PIPERACIL/TAZOBACTA 4.5/NS 100 4.5 GM/100 ML VIAL IV SCH ×2 (06:32→13:45)
[2019-04-05] MEDS ORDERED: INSULIN GLARGINE 100 UNITS/ML SUB-Q SCH (08:00)
[2019-04-05] MEDS: INSULIN LISPRO 100 UNIT/ML SUB-Q SCH ×5 (09:47→22:38)
[2019-04-05 12:23] LABS: Bacteria,Urine 1+ /HPF (Negative); Bilirubin,Urine NEG (Negative); Blood,Urine SM (Negative); Color,Urine Yellow (Yellow); Protein,Urine <15 mg/dL mg/dL (Negative); Urobilinogen,Urine < 2.0 mg/dL (<2.0)
--- NOTE | 2019-04-05 13:27 | Event Note ---
Date: 04/05/19 Patient was seen and evaluated this morning. Patient was admitted earlier this morning for the management of cellulitis of the left foot to rule out osteomyelitis. Patient is diabetic and her blood sugar is uncontrolled and adjust her diabetic medications.
[2019-04-05] MEDS: VANCOMYCIN 1,750 MG in SODIUM CHLORIDE 0.9% 500 ML 500 ML IV SCH (13:45)
--- NOTE | 2019-04-05 14:27 | Consultation ---
History of Present Illness - Reason for Consult Consult date: 04/05/19 Diabetic foot infection Requesting physician: RYAN HARTMAN - History of Present Illness The patient is a 33-year-old female with diabetes mellitus type 2, morbid obesity, prior admission for left foot cellulitis in 04/2018 requiring s/p excisional debridement of wound and incision and drainage of left medial food abscess treated with empiric abx, then apparently had a relapse requiring addit ional surgery and prolonged wound care at [facility] x 6 months. Got skin graft placed and the wound was completely healed. She has been under some stress lately, working and spending most of the day standing, developed left leg swelling 2 weeks ago associated with subjective fever and chills. About 3 days ago, she had skin breakdown on left foot sole along with copious foul smelling drainage and hence came here. Noted to have low grade fever, leucocytosis. ID consulted for left foot diabetic infection and concern for osteomyelitis. Had nausea, vomiting prior to admission, none here. No other systemic complaints. Review of Systems: General: low grade fever and chills HEENT: no new visual disturbance Respiratory: No cough, sputum, hemoptysis or shortness of breath Cardiovascular: No chest pain, syncope Gastrointestinal: No nausea, vomiting or diarrhea at present Genitourinary: No dysuria or hematuria Musculoskeletal: No new or worsening neck pain or back pain Neurologic: No headaches, seizures Hematologic: No easy bruising or bleeding Endocrine: No night sweats or acute weight loss Skin: negative for rash, jaundice Psychiatric: No suicidal or homicidal ideation Past History Past Medical History: diabetes, other (boils) Past Surgical History: (x1), Other (left foot surgery x3) Social history: lives with family Family history: no significant family history Medications and Allergies Allergies Allergy/AdvReac Type Severity Reaction Status Date / Time No Known Allergies Allergy Verified 04/14/17 19:08 Home Medications Medication Instructions Recorded Confirmed Last Taken Type Lispro Insulin [HumaLOG] 0 unit SUB-Q ACHS 30 Days units 05/03/18 04/05/19 Unknown Rx Active Meds: Active Medications Acetaminophen (Tylenol) 650 mg PO Q4H PRN PRN Reason: Pain MILD(1-3)/Fever >100.5/[place] Acetaminophen/Hydrocodone Bitart ([place] 5/325) 2 each PO Q6H PRN PRN Reason: Pain, Moderate (4-6) Last Admin: 04/05/19 05:13 Dose: 2 each Documented by: Dextrose (D50w (25gm) Syringe) 50 ml IV PRN PRN PRN Reason: Hypoglycemia Enoxaparin Sodium (Lovenox) 40 mg SUB-Q QDAY@2200 AB Sodium Chloride (Nacl 0.9% 1000 Ml) 1,000 mls @ 100 mls/hr IV DIRECT BA Vancomycin HCl 1,750 mg/ (Sodium Chloride) 535 mls @ 333.333 mls/hr IV Q12H [facility] Last Admin: 04/05/19 13:45 Dose: 333.333 mls/hr Documented by: Piperacillin Sod/Tazobactam Sod (Zosyn/Ns 4.5gm/100ml) 4.5 gm in 100 mls @ 200 mls/hr IV Q8HR [facility]; Protocol Last Admin: 04/05/19 13:45 Dose: 200 mls/hr Documented by: Insulin Glargine (Lantus) 28 units SUB-Q QAVAIAB [facility] Last Admin: 04/05/19 11:31 Dose: 28 units Documented by: Insulin Human Lispro (Humalog) 0 unit SUB-Q [facility]; Protocol Last Admin: 04/05/19 13:44 Dose: 10 unit Documented by: Insulin Human Lispro (Humalog) 10 unit SUB-Q [facility]; Protocol Ondansetron HCl (Zofran) 4 mg IV Q6H PRN PRN Reason: Nausea And Vomiting Sodium Chloride (Sodium Chloride Flush Syringe 10 Ml) 10 ml IV BID [facility] Last Admin: 04/05/19 09:48 Dose: 10 ml Documented by: Sodium Chloride (Sodium Chloride Flush Syringe 10 Ml) 10 ml IV PRN PRN PRN Reason: LINE FLUSH Physical Examination - Physical Exam Narrative exam: Physical Exam: Constitutional: Alert, cooperative. No acute distress Head, Ears, Nose: Normocephalic, atraumatic. External ears, nose normal Eyes: Conjunctivae/corneas clear. No icterus. No ptosis. Neck: Supple, no meningeal signs Oral: dentition fair, no thrush Cardiovascular: S1, S2 normal. Respiratory: Good air entry, clear to auscultation bilaterally GI: Soft, non-tender; bowel sounds normal. No peritoneal signs Musculoskeletal: large left foot wound on the sole, with drainage, dressing + Skin: No rash or abscess Hem/Lymphatic: No palpable cervical or supraclavicular nodes. No lymphangitis Psych: Mood ok. Affect normal Neurological: Awake, alert, oriented. No gross abnormality - Constitutional Vitals: Vital Signs Temp Pulse Resp BP Pulse Ox 98.7 F 100 H 18 104/57 99 04/05/19 04:49 04/05/19 04:49 04/05/19 04:49 04/05/19 04:49 04/05/19 04:49 Temperature -Last 24 Hours Temperature 98.7 F Temperature 99.8 F Results - Labs CBC & Chem 7: 04/04/19 23:14 04/04/19 23:14 Labs: Abnormal lab results 04/04/19 04/04/19 04/04/19 Range/Units 12:05 23:14 23:14 WBC 16.7 H (4.5-11.0) K/mm3 RDW 13.1 L (13.2-15.2) % Lymph % (Auto) 10.6 L (13.4-35.0) % [place] # 1.1 H (0.0-0.8) K/mm3 Seg Neutrophils % 80.7 H (40.0-70.0) % Seg Neutrophils # 13.5 H (1.8-7.7) K/mm3 Sodium 128 L (137-145) mmol/L Potassium 3.3 L (3.6-5.0) mmol/L Chloride 92.8 L (98-107) mmol/L Carbon Dioxide 20 L (22-30) mmol/L BUN 6 L (7-17) mg/dL Glucose 422 H (65-100) mg/dL POC Glucose (70-105) Hemoglobin A1c (4-6) % Alkaline Phosphatase 157 H (35-129) units/L C-Reactive Protein (0.00-1.30) mg/dL Total Protein 8.8 H (6.3-8.2) g/dL Urine WBC (Auto) 46.0 H (0.0-6.0) /HPF U Epithel Cells (Auto) 19.0 H (0-13.0) /HPF 04/04/19 04/05/19 04/05/19 Range/Units 23:49 02:23 05:00 WBC (4.5-11.0) K/mm3 RDW (13.2-15.2) % Lymph % (Auto) (13.4-35.0) % [place] # (0.0-0.8) K/mm3 Seg Neutrophils % (40.0-70.0) % Seg Neutrophils # (1.8-7.7) K/mm3 Sodium (137-145) mmol/L Potassium (3.6-5.0) mmol/L Chloride (98-107) mmol/L Carbon Dioxide (22-30) mmol/L BUN (7-17) mg/dL Glucose (65-100) mg/dL POC Glucose 307 H (70-105) Hemoglobin A1c 13.5 H (4-6) % Alkaline Phosphatase (35-129) units/L C-Reactive Protein 16.10 H (0.00-1.30) mg/dL Total Protein (6.3-8.2) g/dL Urine WBC (Auto) (0.0-6.0) /HPF U Epithel Cells (Auto) (0-13.0) /HPF 04/05/19 04/05/19 Range/Units 08:56 12:30 WBC (4.5-11.0) K/mm3 RDW (13.2-15.2) % Lymph % (Auto) (13.4-35.0) % [place] # (0.0-0.8) K/mm3 Seg Neutrophils % (40.0-70.0) % Seg Neutrophils # (1.8-7.7) K/mm3 Sodium (137-145) mmol/L Potassium (3.6-5.0) mmol/L Chloride (98-107) mmol/L Carbon Dioxide (22-30) mmol/L BUN (7-17) mg/dL Glucose (65-100) mg/dL POC Glucose 376 H 384 H (70-105) Hemoglobin A1c (4-6) % Alkaline Phosphatase (35-129) units/L C-Reactive Protein (0.00-1.30) mg/dL Total Protein (6.3-8.2) g/dL Urine WBC (Auto) (0.0-6.0) /HPF U Epithel Cells (Auto) (0-13.0) /HPF Assessment and Plan Cultures: 04/04/2019 blood culture: In progress Previous chart and cultures reviewed, left foot wound had grown skin adithya. A/P: 33-year-old female with diabetes mellitus type 2, morbid obesity, prior admission for left foot cellulitis in 04/2018 requiring s/p excisional debridement of wound and incision and drainage of left medial food abscess treated with empiric abx, then apparently had a relapse requiring additional surgery and prolonged wound care at [facility] x 6 months. Got skin graft placed and the wound was completely healed. Now with: 1) Left diabetic foot infection, leukocytosis: Concerning for underlying osteomyelitis. We will need MRI to evaluate for osteomyelitis and any abscess. Recommend broad-spectrum antibiotic therapy. Needs tight glycemic control. Surgery consult for debridement. Also evaluate with vascular studies. 2) Diabetes mellitus type 2, uncontrolled: Recommend tight glycemic control. 3) Hyponatremia 4) Obesity Recs: Empiric IV cefepime, Flagyl and vancomycin MRI of left foot with and without contrast to evaluate for osteomyelitis and abscess Tight glycemic control Surgery consult for debridement and deep cultures Vascular studies D/W Dr. Marvin. Yusra Lezama MD, FACP [facility] C: [phone] O: [phone] F: [phone]
[2019-04-05] MEDS: metroNIDAZOLE/NS 500 MG/100 ML 500 MG/100 ML BAG IV SCH ×2 (16:16→22:00)
--- NOTE | 2019-04-05 16:26 | Vascular Lab Report ---
DUPLEX DOPPLER LOWER EXTREMITY ARTERIAL, BILATERAL INDICATION: diabetic foot wound, osteomyelitis. TECHNIQUE: Arterial duplex examination of both lower extremities performed using B-mode, color flow and spectral Doppler assessment. FINDINGS: RIGHT: Common Femoral Artery: PSV 103 cm/sec. Triphasic waveform. Proximal SFA: PSV 110 cm/sec. Triphasic waveform. Mid SFA: PSV 88 cm/sec. Triphasic waveform. Distal SFA: PSV 84 cm/sec. Triphasic waveform. Popliteal artery: PSV 71 cm/sec. Triphasic waveform. Posterior tibial artery: PSV 86 cm/sec. Triphasic waveform. Dorsalis Pedis Artery: PSV 89 cm/sec. Triphasic waveform. LEFT: Common Femoral Artery: PSV 119 cm/sec. Triphasic waveform. Proximal SFA: PSV 128 cm/sec. Biphasic waveform. Mid SFA: PSV 114 cm/sec. Biphasic waveform. Distal SFA: PSV 117 cm/sec. Biphasic waveform. Popliteal artery: PSV 121 cm/sec. Biphasic waveform. Posterior tibial artery: PSV 107 cm/sec. Monophasic waveform. Dorsalis Pedis Artery: PSV 126 cm/sec. Monophasic waveform. IMPRESSION: 1. No significant discrete velocity elevation is identified in either lower extremity. Velocities and waveforms on the right are normal. The waveforms on the left are abnormal. Biphasic flow in the superficial femoral and popliteal arteri es and monophasic flow in the distal runoff vessels suggests some component vascular disease on the l eft, particularly the possibility of disease in the runoff vessels on the left.. * Doppler Waveform: * Triphasic is normal. * Biphasic is abnormal if clear transition from triphasic signal along vascular tree. * Monophasic is abnormal. Signer Name: Manoj Vail MD Signed: 04/05/2019 4:22 PM Workstation Name: [id number]
[2019-04-05] MEDS: CEFEPIME/NS 2 GM/100 ML 2 GM/100 ML BAG IV SCH ×2 (18:33→21:18)
--- NOTE | 2019-04-05 18:40 | Magnetic Resonance Report ---
MR LE nonjoint LT wo/w con INDICATION / CLINICAL INFORMATION: Left foot osteomyelitis, diabetic foot. TECHNIQUE: Multiplanar, multisequence MR images were obtained. COMPARISON: Radiographs earlier the same day. FINDINGS: There is skin ulceration along the plantar/lateral aspect of the lateral forefoot at the level of the fifth tarsometatarsal articulation. This extends to the lateral cortex at the base of the proximal p halanx of the fifth toe. There is extensive edema and enhancement within the soft tissues in this reg ion. In addition, there is a serpiginous abscess which wraps along the dorsal aspect of the lateral f orefoot at the level of the MTP articulation. This is best seen on axial postcontrast images 23-29. There is abnormal low T1/high T2 signal and enhancement throughout the left fifth toe phalanges and, to a lesser degree, within the fifth metatarsal head. Bone marrow signal is otherwise unremarkable. There is extensive dorsal subcutaneous edema within the included midfoot and hindfoot. There is also intrinsic edema throughout the muscles of the left foot. IMPRESSION: 1. Deep ulcer along the plantar/lateral aspect of the forefoot laterally with underlying advanced selma lulitis and associated predominantly dorsal serpiginous soft tissue abscess. In addition, there is os teomyelitis throughout the fifth toe phalanges and, to a lesser degree, within the fifth metatarsal h ead. Signer Name: Nakul Pinedo MD Signed: 04/05/2019 6:35 PM Workstation Name: [id number]
[2019-04-05] MEDS: ENOXAPARIN 40 MG/0.4 ML INJ SUB-Q SCH (21:19)
[2019-04-06] MEDS: VANCOMYCIN 1,750 MG in SODIUM CHLORIDE 0.9% 500 ML 500 ML IV SCH ×2 (02:12→16:41)
[2019-04-06 05:24] LABS: Basophils # (Auto) 0.1 K/mm3 (0.0-0.1); Basophils % (Auto) 0.7 % (0.0-1.8); Eosinophils # (Auto) 0.3 K/mm3 (0.0-0.4); Eosinophils % (Auto) 2.4 % (0.0-4.3); Hematocrit 31.7 % (30.3-42.9); Hemoglobin 10.2 gm/dl (10.1-14.3); Lymphocytes # (Auto) 2.3 K/mm3 (1.2-5.4); Lymphocytes % (Auto) 19.6 % (13.4-35.0); Mean Corpuscular HGB Conc 32 % (30-34); Mean Corpuscular Volume 87 fl (79-97); Monocytes # (Auto) 0.8 K/mm3 (0.0-0.8); Platelet Count 375 K/mm3 (140-440); Red Blood Count 3.65 M/mm3 (3.65-5.03); Red Cell Distribution Width 13.1 % (13.2-15.2)
[2019-04-06] MEDS: CEFEPIME/NS 2 GM/100 ML 2 GM/100 ML BAG IV SCH ×3 (05:58→21:12)
[2019-04-06 05:59] LABS: BUN/Creatinine Ratio 10; Blood Urea Nitrogen 6 mg/dL (7-17); Calcium 7.8 mg/dL (8.4-10.2); Hemolysis Index 11
[2019-04-06] MEDS: metroNIDAZOLE/NS 500 MG/100 ML 500 MG/100 ML BAG IV SCH ×3 (05:59→21:12)
[2019-04-06] MEDS: INSULIN LISPRO 100 UNIT/ML SUB-Q SCH ×8 (08:27→22:15)
[2019-04-06] MEDS: INSULIN GLARGINE 100 UNITS/ML SUB-Q SCH (09:52)
--- NOTE | 2019-04-06 13:27 | Progress Note ---
Assessment and Plan Assessment and plan: 32-year-old -[place] female with past medical history significant for morbid obesity, uncontrolled diabetes mellitus presented to the emergency department with complaints of left lower extremity pain, and discharge for the last 3-4 days Osteomyelitis and abscess of the left foot - Patient is on IV antibiotics - ID consult appreciated -Gen. surgery and orthopedics consulted for debridement and drainage of abscess Uncontrolled diabetes mellitus - Hemoglobin A1c is 13.5, patient started with home dose of insulin of 28 units but it didn't control and I increased to 35 units daily at bedtime, sliding scale insulin, Accu-Chek, 10 units of Humalog before meals at bedtime, diabetic diet Morbid obesity -Patient was extensively counseled about diet and exercise to lose weight DVT prophylaxis Disposition Continue inpatient care History Interval history: Patient was seen and evaluated this morning, patient didn't have any new complaints. Hospitalist Physical - Physical exam Narrative exam: Not in cardiopulmonary distress. The patient appeared well nourished and normally developed. Vital signs as documented. Head exam is unremarkable. No scleral icterus . Neck is without jugular venous distension, thyromegaly, or carotid bruits. Lungs are clear to auscultation. Cardiac exam reveals regular rate and Rhythm. First and second heart sounds normal. No murmurs, rubs or gallops. Abdominal exam reveals normal bowel sounds, no masses, no organomegaly and no aortic enlargement. Extremities clean dressing on the left lower foot. [employer]: Alert and oriented 3. No focal weakness. - Constitutional Vitals: Temp Pulse Resp BP Pulse Ox 98.6 F 87 18 116/73 98 04/06/19 11:32 04/06/19 11:32 04/06/19 11:32 04/06/19 11:32 04/06/19 11:32 Results - Labs CBC & Chem 7: 04/06/19 04:47 04/06/19 04:47 Labs: Laboratory Last Values WBC 11.8 K/mm3 (4.5-11.0) H 04/06/19 04:47 RBC 3.65 M/mm3 (3.65-5.03) 04/06/19 04:47 Hgb 10.2 gm/dl (10.1-14.3) 04/06/19 04:47 Hct 31.7 % (30.3-42.9) 04/06/19 04:47 MCV 87 fl (79-97) 04/06/19 04:47 MCH 28 pg (28-32) 04/06/19 04:47 MCHC 32 % (30-34) 04/06/19 04:47 RDW 13.1 % (13.2-15.2) L 04/06/19 04:47 Plt Count 375 K/mm3 (140-440) 04/06/19 04:47 Lymph % (Auto) 19.6 % (13.4-35.0) 04/06/19 04:47 [place] % (Auto) 7.0 % (0.0-7.3) 04/06/19 04:47 Eos % (Auto) 2.4 % (0.0-4.3) 04/06/19 04:47 Baso % (Auto) 0.7 % (0.0-1.8) 04/06/19 04:47 Lymph # 2.3 K/mm3 (1.2-5.4) 04/06/19 04:47 [place] # 0.8 K/mm3 (0.0-0.8) 04/06/19 04:47 Eos # 0.3 K/mm3 (0.0-0.4) 04/06/19 04:47 Baso # 0.1 K/mm3 (0.0-0.1) 04/06/19 04:47 Seg Neutrophils % 70.3 % (40.0-70.0) H 04/06/19 04:47 Seg Neutrophils # 8.3 K/mm3 (1.8-7.7) H 04/06/19 04:47 ESR 88 mm/Hr (0-20) 04/04/19 23:14 APTT 34.1 Sec. (24.2-36.6) 04/04/19 23:49 VBG pH 7.354 (7.320-7.420) 04/04/19 23:49 Sodium 134 mmol/L (137-145) L 04/06/19 04:47 Potassium 3.8 mmol/L (3.6-5.0) 04/06/19 04:47 Chloride 105.3 mmol/L (98-107) 04/06/19 04:47 Carbon Dioxide 21 mmol/L (22-30) L 04/06/19 04:47 12 mmol/L 04/06/19 04:47 BUN 6 mg/dL (7-17) L 04/06/19 04:47 0.6 mg/dL (0.7-1.2) L 04/06/19 04:47 Estimated GFR > 60 ml/min 04/06/19 04:47 10 % 04/06/19 04:47 Glucose 313 mg/dL (65-100) H 04/06/19 04:47 POC Glucose 285 (70-105) H 04/06/19 12:10 13.5 % (4-6) H 04/05/19 02:23 Lactic Acid 1.50 mmol/L (0.7-2.0) 04/05/19 02:23 Calcium 7.8 mg/dL (8.4-10.2) L 04/06/19 04:47 Magnesium 1.90 mg/dL (1.7-2.3) 04/04/19 23:49 0.40 mg/dL (0.1-1.2) 04/04/19 23:14 AST 11 units/L (5-40) 04/04/19 23:14 ALT 11 units/L (7-56) 04/04/19 23:14 157 units/L (35-129) H 04/04/19 23:14 67 units/L (30-135) 04/04/19 23:49 16.10 mg/dL (0.00-1.30) H 04/04/19 23:49 8.8 g/dL (6.3-8.2) H 04/04/19 23:14 3.9 g/dL (3.9-5) 04/04/19 23:14 0.8 % 04/04/19 23:14 HCG, Qual Negative (Negative) 04/04/19 23:22 Yellow (Yellow) 04/04/19 12:05 Slightly-cloudy (Clear) 04/04/19 12:05 6.0 (5.0-7.0) 04/04/19 12:05 Ur Specific [place] 1.028 (1.003-1.030) 04/04/19 12:05 <15 mg/dl mg/dL (Negative) 04/04/19 12:05 >=500 mg/dL (Negative) 04/04/19 12:05 Tr mg/dL (Negative) 04/04/19 12:05 Sm (Negative) 04/04/19 12:05 Neg (Negative) 04/04/19 12:05 Neg (Negative) 04/04/19 12:05 < 2.0 mg/dL (<2.0) 04/04/19 12:05 Ur Leukocyte Esterase Lg (Negative) 04/04/19 12:05 46.0 /HPF (0.0-6.0) H 04/04/19 12:05 12.0 /HPF (0.0-6.0) 04/04/19 12:05 U Epithel Cells (Auto) 19.0 /HPF (0-13.0) H 04/04/19 12:05 1+ /HPF (Negative) 04/04/19 12:05 Active Medications - Current Medications Current Medications: Generic Name Dose Route Start Last Admin Trade Name Freq PRN Reason Stop Dose Admin Acetaminophen 650 mg 04/05/19 01:40 Tylenol PO Q4H PRN Pain MILD(1-3)/Fever >100.5/[place] Acetaminophen/Hydrocodone Bitart 2 each 04/05/19 01:40 04/05/19 18:36 [place] 5/325 PO 2 each Q6H PRN Administration Pain, Moderate (4-6) Dextrose 50 ml 04/05/19 01:40 D50w (25gm) Syringe IV PRN PRN Hypoglycemia Enoxaparin Sodium 40 mg 04/05/19 22:00 04/05/19 21:19 Lovenox SUB-Q 40 mg QDAY@2200 BA Administration Sodium Chloride 1,000 mls @ 100 mls/hr 04/05/19 02:00 Nacl 0.9% 1000 Ml IV DIRECT BA Vancomycin HCl 1,750 mg/ 535 mls @ 333.333 mls/hr 04/05/19 14:00 04/06/19 02:12 Sodium Chloride IV 333.333 mls/hr Q12H BA Administration Cefepime HCl 2 gm in 100 mls @ 200 mls/hr 04/05/19 15:30 04/06/19 05:58 Maxipime/Ns 2 Gm/100 Ml IV 200 mls/hr Q8HR BA Administration Protocol Metronidazole 500 mg in 100 mls @ 100 mls/hr 04/05/19 15:00 04/06/19 05:59 Flagyl 500 Mg/100 Ml IV 100 mls/hr Q8HR BA Administration Protocol Insulin Glargine 35 units 04/06/19 09:00 04/06/19 09:52 Lantus SUB-Q 35 units QAMDIAB BA Administration Insulin Human Lispro 0 unit 04/05/19 07:30 04/06/19 12:27 Humalog SUB-Q 6 unit ACHS BA Administration Protocol Insulin Human Lispro 10 unit 04/05/19 16:30 04/06/19 12:25 Humalog SUB-Q Not Given ACHS BA Protocol Ondansetron HCl 4 mg 04/05/19 01:40 Zofran IV Q6H PRN Nausea And Vomiting Sodium Chloride 10 ml 04/05/19 10:00 04/06/19 09:52 Sodium Chloride Flush Syringe 10 Ml IV 10 ml BID BA Administration Sodium Chloride 10 ml 04/05/19 01:40 Sodium Chloride Flush Syringe 10 Ml IV PRN PRN LINE FLUSH
[2019-04-06] MEDS: HYDROcodone/ACETAMINOPHEN 5-325 MG TAB PO PRN (16:53)
--- NOTE | 2019-04-06 18:50 | Anesthesia Consultation ---
Anesthesia Consult and Med Hx Date of service: 04/06/19 - Airway Anesthetic Teeth Evaluation: Partials (upper) ROM Head & Neck: Adequate Mental/Hyoid Distance: Adequate Mallampati Class: Class III Intubation Access Assessment: Possibly Difficult - Pulmonary Exam CTA: Yes - Cardiac Exam Cardiac Exam: RRR - Pre-Operative Health Status ASA Pre-Surgery Classification: ASA3 Proposed Anesthetic Plan: MAC - Pulmonary Hx Smoking: No Hx Respiratory Symptoms: No - Cardiovascular System Hx Hypertension: No Hx Heart Attack/AMI: No - Central Nervous System CVA: No - Gastrointestinal Hx Gastroesophageal Reflux Disease: No - Endocrine Hx Renal Disease: No Hx Liver Disease: No Hx Insulin Dependent Diabetes: Yes (A1c 13.5 this admission) Hx Thyroid Disease: No - Hematic Hx Anemia: Yes - Other Systems Hx Obesity: Yes (BMI 40) - Additional Comments Anesthesia Medical History Comments: No hx anesthetic complications.
--- NOTE | 2019-04-06 20:28 | Consultation ---
History of Present Illness Consult date: 04/06/19 Reason for consult: other (diabetic foot) Chief complaint: left foot wound - History of present illness History of present illness: 33 year old female who presented to the ED with a 3 day history of worsening left foot pain, swelling, and drainage of would on sole of left foot. she has had problems with that foot before and had several procedures in the last year. She says that the foot is painful. she has a history of neuropathy from her diabetes but says that it feels about the same in terms of sensation compared to before the wound started. Past History Past Medical History: diabetes, other (boils) Past Surgical History: (x1), Other (left foot surgery x3) Social history: lives with family Family history: no significant family history Medications and Allergies Allergies Allergy/AdvReac Type Severity Reaction Status Date / Time No Known Allergies Allergy Verified 04/14/17 19:08 Home Medications Medication Instructions Recorded Confirmed Last Taken Type Lispro Insulin [HumaLOG] 0 unit SUB-Q ACHS 30 Days units 05/03/18 04/05/19 Unknown Rx Active Meds: Active Medications Acetaminophen (Tylenol) 650 mg PO Q4H PRN PRN Reason: Pain MILD(1-3)/Fever >100.5/ANDERSON Acetaminophen/Hydrocodone Bitart ([place] 5/325) 2 each PO Q6H PRN PRN Reason: Pain, Moderate (4-6) Last Admin: 04/06/19 16:53 Dose: 2 each Documented by: Dextrose (D50w (25gm) Syringe) 50 ml IV PRN PRN PRN Reason: Hypoglycemia Enoxaparin Sodium (Lovenox) 40 mg SUB-Q QDAY@2200 BA Last Admin: 04/05/19 21:19 Dose: 40 mg Documented by: Sodium Chloride (Nacl 0.9% 1000 Ml) 1,000 mls @ 100 mls/hr IV DIRECT BA Vancomycin HCl 1,750 mg/ (Sodium Chloride) 535 mls @ 333.333 mls/hr IV Q12H BA Last Admin: 04/06/19 16:41 Dose: 333.333 mls/hr Documented by: Cefepime HCl (Maxipime/Ns 2 Gm/100 Ml) 2 gm in 100 mls @ 200 mls/hr IV Q8HR BA; Protocol Last Admin: 04/06/19 13:41 Dose: 200 mls/hr Documented by: Metronidazole (Flagyl 500 Mg/100 Ml) 500 mg in 100 mls @ 100 mls/hr IV Q8HR [facility]; Protocol Last Admin: 04/06/19 15:00 Dose: 100 mls/hr Documented by: Insulin Glargine (Lantus) 35 units SUB-Q QAMDIAB [facility] Last Admin: 04/06/19 09:52 Dose: 35 units Documented by: Insulin Human Lispro (Humalog) 0 unit SUB-Q [facility]; Protocol Last Admin: 04/06/19 17:00 Dose: 6 unit Documented by: Insulin Human Lispro (Humalog) 10 unit SUB-Q [facility]; Protocol Last Admin: 04/06/19 17:01 Dose: 10 unit Documented by: Ondansetron HCl (Zofran) 4 mg IV Q6H PRN PRN Reason: Nausea And Vomiting Sodium Chloride (Sodium Chloride Flush Syringe 10 Ml) 10 ml IV BID [facility] Last Admin: 04/06/19 09:52 Dose: 10 ml Documented by: Sodium Chloride (Sodium Chloride Flush Syringe 10 Ml) 10 ml IV PRN PRN PRN Reason: LINE FLUSH Review of Systems - Muskuloskeletal leg numbness/tingling - Integumentary foot/leg ulcers Exam Vital Signs Pulse Resp BP Pulse Ox 68 18 149/81 99 04/04/19 19:20 04/04/19 19:20 04/04/19 19:20 04/04/19 19:20 - General physical appearance Positive: well developed, well nourished, no distress - Respiratory Positive: normal expansion, normal respiratory effort - Cardiovascular Rhythm: regular - Extremities Extremity abnormal: other (left foot/ ankle with significant edema. 3x3 cm maloderous wound on sole of left 5th metatarsal head. black eschar with spongy feel, and fibrinous/purulent exudate. tender to palpation. sensation normal for her. good capillary refill) Results - Labs 04/06/19 04:47 04/06/19 04:47 Abnormal lab results 04/05/19 04/06/19 04/06/19 Range/Units 21:37 04:47 04:47 WBC 11.8 H (4.5-11.0) K/mm3 RDW 13.1 L (13.2-15.2) % Seg Neutrophils % 70.3 H (40.0-70.0) % Seg Neutrophils # 8.3 H (1.8-7.7) K/mm3 Sodium 134 L (137-145) mmol/L Carbon Dioxide 21 L (22-30) mmol/L BUN 6 L (7-17) mg/dL Creatinine 0.6 L (0.7-1.2) mg/dL Glucose 313 H (65-100) mg/dL POC Glucose 307 H (70-105) Calcium 7.8 L (8.4-10.2) mg/dL 04/06/19 04/06/19 04/06/19 Range/Units 07:49 12:10 16:50 WBC (4.5-11.0) K/mm3 RDW (13.2-15.2) % Seg Neutrophils % (40.0-70.0) % Seg Neutrophils # (1.8-7.7) K/mm3 Sodium (137-145) mmol/L Carbon Dioxide (22-30) mmol/L BUN (7-17) mg/dL Creatinine (0.7-1.2) mg/dL Glucose (65-100) mg/dL POC Glucose 289 H 285 H 267 H (70-105) Calcium (8.4-10.2) mg/dL Diabetes panel 04/06/19 Range/Units 04:47 Sodium 134 L (137-145) mmol/L Potassium 3.8 (3.6-5.0) mmol/L Chloride 105.3 (98-107) mmol/L Carbon Dioxide 21 L (22-30) mmol/L BUN 6 L (7-17) mg/dL Creatinine 0.6 L (0.7-1.2) mg/dL Glucose 313 H (65-100) mg/dL Calcium 7.8 L (8.4-10.2) mg/dL Calcium panel 04/06/19 Range/Units 04:47 Calcium 7.8 L (8.4-10.2) mg/dL Pituitary panel 04/06/19 Range/Units 04:47 Sodium 134 L (137-145) mmol/L Potassium 3.8 (3.6-5.0) mmol/L Chloride 105.3 (98-107) mmol/L Carbon Dioxide 21 L (22-30) mmol/L BUN 6 L (7-17) mg/dL Creatinine 0.6 L (0.7-1.2) mg/dL Glucose 313 H (65-100) mg/dL Calcium 7.8 L (8.4-10.2) mg/dL Adrenal panel 04/06/19 Range/Units 04:47 Sodium 134 L (137-145) mmol/L Potassium 3.8 (3.6-5.0) mmol/L Chloride 105.3 (98-107) mmol/L Carbon Dioxide 21 L (22-30) mmol/L BUN 6 L (7-17) mg/dL Creatinine 0.6 L (0.7-1.2) mg/dL Glucose 313 H (65-100) mg/dL Calcium 7.8 L (8.4-10.2) mg/dL - Imaging Additional studies: MRI shows left foot cellulits, with 5th digit and metatarsal osteomilits. Assessment and Plan poorly controlled diabetes, with non healing infected would left foot with cellulitis and osteomylitis. stable, afebrile. Will take to OR tomorrow for debridement of wound. should continue antibiotics. If does not improve clinically may need to consult vascular to work up of perfusion issues.
[2019-04-06] MEDS: ENOXAPARIN 40 MG/0.4 ML INJ SUB-Q SCH ×2 (21:12)
[2019-04-07] MEDS: VANCOMYCIN 1,750 MG in SODIUM CHLORIDE 0.9% 500 ML 500 ML IV SCH ×2 (02:19→16:06)
[2019-04-07] MEDS: metroNIDAZOLE/NS 500 MG/100 ML 500 MG/100 ML BAG IV SCH ×3 (05:12→23:27)
[2019-04-07] MEDS: CEFEPIME/NS 2 GM/100 ML 2 GM/100 ML BAG IV SCH ×3 (05:12→23:27)
[2019-04-07 06:58] LABS: BUN/Creatinine Ratio 12; Blood Urea Nitrogen 7 mg/dL (7-17); Calcium 8.2 mg/dL (8.4-10.2); Hemolysis Index 2
[2019-04-07] MEDS: SODIUM CHLORIDE 0.9% 1000 ML 1,000 ML IV SCH ×2 (07:18→13:57)
[2019-04-07] MEDS: INSULIN LISPRO 100 UNIT/ML SUB-Q SCH ×8 (08:26→23:28)
[2019-04-07] MEDS: INSULIN GLARGINE 100 UNITS/ML SUB-Q SCH ×2 (08:26→13:59)
--- NOTE | 2019-04-07 08:57 | Progress Note ---
Assessment and Plan left foot non healing diabetic foot ulcer. taking to OR today for debridement Subjective Date of service: 04/07/19 Patient Reports: Positive: no new complaints Narrative: no acute events over night Objective Vital Signs - 12hr 04/06/19 04/06/19 04/07/19 22:00 22:38 04:42 Temperature 98.4 F 98.9 F Pulse Rate 84 84 Respiratory 20 18 Rate Respiratory 17 Rate [LL foot] Blood Pressure 109/75 121/77 O2 Sat by Pulse 99 97 Oximetry - General physical appearance well developed, no distress - Respiratory normal expansion, normal respiratory effort - Abdomen soft, not tender (left foot with bandage c/d/i) - Labs 04/06/19 04:47 04/07/19 05:49 Diabetes panel 04/07/19 Range/Units 05:49 Sodium 136 L (137-145) mmol/L Potassium 3.7 (3.6-5.0) mmol/L Chloride 103.1 (98-107) mmol/L Carbon Dioxide 19 L (22-30) mmol/L BUN 7 (7-17) mg/dL Creatinine 0.6 L (0.7-1.2) mg/dL Glucose 273 H (65-100) mg/dL Calcium 8.2 L (8.4-10.2) mg/dL Calcium panel 04/07/19 Range/Units 05:49 Calcium 8.2 L (8.4-10.2) mg/dL Pituitary panel 04/07/19 Range/Units 05:49 Sodium 136 L (137-145) mmol/L Potassium 3.7 (3.6-5.0) mmol/L Chloride 103.1 (98-107) mmol/L Carbon Dioxide 19 L (22-30) mmol/L BUN 7 (7-17) mg/dL Creatinine 0.6 L (0.7-1.2) mg/dL Glucose 273 H (65-100) mg/dL Calcium 8.2 L (8.4-10.2) mg/dL Adrenal panel 04/07/19 Range/Units 05:49 Sodium 136 L (137-145) mmol/L Potassium 3.7 (3.6-5.0) mmol/L Chloride 103.1 (98-107) mmol/L Carbon Dioxide 19 L (22-30) mmol/L BUN 7 (7-17) mg/dL Creatinine 0.6 L (0.7-1.2) mg/dL Glucose 273 H (65-100) mg/dL Calcium 8.2 L (8.4-10.2) mg/dL
--- NOTE | 2019-04-07 10:31 | Progress Note ---
Assessment and Plan Assessment and plan: 32-year-old -Cong[place] female with past medical history significant for morbid obesity, uncontrolled diabetes mellitus presented to the emergency department with complaints of left lower extremity pain, and discharge for the last 3-4 days Osteomyelitis and abscess of the left foot - Patient is on IV antibiotics - ID consult appreciated -Gen. surgery and and wound debridement today 04/07 Uncontrolled diabetes mellitus - Hemoglobin A1c is 13.5, patient started with home dose of insulin of 28 units but it didn't control and I increased to 35 units daily at bedtime, sliding scale insulin, Accu-Chek, 15 units of Humalog before meals at bedtime, diabetic diet Morbid obesity -Patient was extensively counseled about diet and exercise to lose weight DVT prophylaxis Disposition Continue inpatient care History Interval history: Patient was seen and evaluated this morning, patient didn't have any new complaints. Hospitalist Physical - Physical exam Narrative exam: Not in cardiopulmonary distress. The patient appeared well nourished and normally developed. Vital signs as documented. Head exam is unremarkable. No scleral icterus . Neck is without jugular venous distension, thyromegaly, or carotid bruits. Lungs are clear to auscultation. Cardiac exam reveals regular rate and Rhythm. First and second heart sounds normal. No murmurs, rubs or gallops. Abdominal exam reveals normal bowel sounds, no masses, no organomegaly and no aortic enlargement. Extremities clean dressing on the left lower foot. 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 No focal weakness. - Constitutional Vitals: Temp Pulse Resp BP Pulse Ox 98.9 F 84 18 121/77 97 04/07/19 04:42 04/07/19 04:42 04/07/19 04:42 04/07/19 04:42 04/07/19 04:42 Results - Labs CBC & Chem 7: 04/06/19 04:47 04/07/19 05:49 Labs: Laboratory Last Values WBC 11.8 K/mm3 (4.5-11.0) H 04/06/19 04:47 RBC 3.65 M/mm3 (3.65-5.03) 04/06/19 04:47 Hgb 10.2 gm/dl (10.1-14.3) 04/06/19 04:47 Hct 31.7 % (30.3-42.9) 04/06/19 04:47 MCV 87 fl (79-97) 04/06/19 04:47 MCH 28 pg (28-32) 04/06/19 04:47 MCHC 32 % (30-34) 04/06/19 04:47 RDW 13.1 % (13.2-15.2) L 04/06/19 04:47 Plt Count 375 K/mm3 (140-440) 04/06/19 04:47 Lymph % (Auto) 19.6 % (13.4-35.0) 04/06/19 04:47 Day % (Auto) 7.0 % (0.0-7.3) 04/06/19 04:47 Eos % (Auto) 2.4 % (0.0-4.3) 04/06/19 04:47 Baso % (Auto) 0.7 % (0.0-1.8) 04/06/19 04:47 Lymph # 2.3 K/mm3 (1.2-5.4) 04/06/19 04:47 Day # 0.8 K/mm3 (0.0-0.8) 04/06/19 04:47 Eos # 0.3 K/mm3 (0.0-0.4) 04/06/19 04:47 Baso # 0.1 K/mm3 (0.0-0.1) 04/06/19 04:47 Seg Neutrophils % 70.3 % (40.0-70.0) H 04/06/19 04:47 Seg Neutrophils # 8.3 K/mm3 (1.8-7.7) H 04/06/19 04:47 ESR 88 mm/Hr (0-20) 04/04/19 23:14 APTT 34.1 Sec. (24.2-36.6) 04/04/19 23:49 VBG pH 7.354 (7.320-7.420) 04/04/19 23:49 Sodium 136 mmol/L (137-145) L 04/07/19 05:49 Potassium 3.7 mmol/L (3.6-5.0) 04/07/19 05:49 Chloride 103.1 mmol/L (98-107) 04/07/19 05:49 Carbon Dioxide 19 mmol/L (22-30) L 04/07/19 05:49 18 mmol/L 04/07/19 05:49 BUN 7 mg/dL (7-17) 04/07/19 05:49 0.6 mg/dL (0.7-1.2) L 04/07/19 05:49 Estimated GFR > 60 ml/min 04/07/19 05:49 12 % 04/07/19 05:49 Glucose 273 mg/dL (65-100) H 04/07/19 05:49 POC Glucose 270 (70-105) H 04/07/19 07:34 13.5 % (4-6) H 04/05/19 02:23 Lactic Acid 1.50 mmol/L (0.7-2.0) 04/05/19 02:23 Calcium 8.2 mg/dL (8.4-10.2) L 04/07/19 05:49 Magnesium 1.90 mg/dL (1.7-2.3) 04/04/19 23:49 0.40 mg/dL (0.1-1.2) 04/04/19 23:14 AST 11 units/L (5-40) 04/04/19 23:14 ALT 11 units/L (7-56) 04/04/19 23:14 157 units/L (35-129) H 04/04/19 23:14 67 units/L (30-135) 04/04/19 23:49 16.10 mg/dL (0.00-1.30) H 04/04/19 23:49 8.8 g/dL (6.3-8.2) H 04/04/19 23:14 3.9 g/dL (3.9-5) 04/04/19 23:14 0.8 % 04/04/19 23:14 HCG, Qual Negative (Negative) 04/04/19 23:22 Yellow (Yellow) 04/04/19 12:05 Slightly-cloudy (Clear) 04/04/19 12:05 6.0 (5.0-7.0) 04/04/19 12:05 Ur Specific [place] 1.028 (1.003-1.030) 04/04/19 12:05 <15 mg/dl mg/dL (Negative) 04/04/19 12:05 >=500 mg/dL (Negative) 04/04/19 12:05 Tr mg/dL (Negative) 04/04/19 12:05 Sm (Negative) 04/04/19 12:05 Neg (Negative) 04/04/19 12:05 Neg (Negative) 04/04/19 12:05 < 2.0 mg/dL (<2.0) 04/04/19 12:05 Ur Leukocyte Esterase Lg (Negative) 04/04/19 12:05 46.0 /HPF (0.0-6.0) H 04/04/19 12:05 12.0 /HPF (0.0-6.0) 04/04/19 12:05 U Epithel Cells (Auto) 19.0 /HPF (0-13.0) H 04/04/19 12:05 1+ /HPF (Negative) 04/04/19 12:05 Active Medications - Current Medications Current Medications: Generic Name Dose Route Start Last Admin Trade Name Freq PRN Reason Stop Dose Admin Acetaminophen 650 mg 04/05/19 01:40 Tylenol PO Q4H PRN Pain MILD(1-3)/Fever >100.5/ANDERSON Acetaminophen/Hydrocodone Bitart 2 each 04/05/19 01:40 04/06/19 16:53 [place] 5/325 PO 2 each Q6H PRN Administration Pain, Moderate (4-6) Dextrose 50 ml 04/05/19 01:40 D50w (25gm) Syringe IV PRN PRN Hypoglycemia Enoxaparin Sodium 40 mg 04/05/19 22:00 04/06/19 21:12 Lovenox SUB-Q Not Given QDAY@2200 BA Sodium Chloride 1,000 mls @ 100 mls/hr 04/05/19 02:00 04/07/19 07:18 Nacl 0.9% 1000 Ml IV 100 mls/hr DIRECT BA Administration Vancomycin HCl 1,750 mg/ 535 mls @ 333.333 mls/hr 04/05/19 14:00 04/07/19 02:19 Sodium Chloride IV 333.333 mls/hr Q12H BA Administration Cefepime HCl 2 gm in 100 mls @ 200 mls/hr 04/05/19 15:30 04/07/19 05:12 Maxipime/Ns 2 Gm/100 Ml IV 200 mls/hr Q8HR BA Administration Protocol Metronidazole 500 mg in 100 mls @ 100 mls/hr 04/05/19 15:00 04/07/19 05:12 Flagyl 500 Mg/100 Ml IV 100 mls/hr Q8HR BA Administration Protocol Insulin Glargine 35 units 04/06/19 09:00 04/07/19 08:26 Lantus SUB-Q Not Given QAMDIAB BA Insulin Human Lispro 0 unit 04/05/19 07:30 04/07/19 08:26 Humalog SUB-Q Not Given ACHS BA Protocol Insulin Human Lispro 15 unit 04/07/19 08:30 04/07/19 08:26 Humalog SUB-Q 15 unit ACHS BA Administration Protocol Ondansetron HCl 4 mg 04/05/19 01:40 Zofran IV Q6H PRN Nausea And Vomiting Sodium Chloride 10 ml 04/05/19 10:00 04/06/19 21:13 Sodium Chloride Flush Syringe 10 Ml IV 10 ml BID BA Administration Sodium Chloride 10 ml 04/05/19 01:40 Sodium Chloride Flush Syringe 10 Ml IV PRN PRN LINE FLUSH
[2019-04-07] MEDS ORDERED: BUPIVACAINE/PF (0.5%) 5 MG/1 ML 30 ML VIAL INFILTRATI ONE ×2 (10:50→12:10)
[2019-04-07] MEDS ORDERED: LIDOCAINE (1%) 10 MG/1 ML VIAL 20 ML MDV ONE (10:50)
[2019-04-07] MEDS ORDERED: PROPOFOL 200 MG/20 ML VIAL IV ONE (10:54)
[2019-04-07] MEDS ORDERED: LIDOCAINE MPF (2%) 20 MG/1 ML VIAL 5 ML ONE (10:54)
[2019-04-07] MEDS ORDERED: fentaNYL 100 MCG/2 ML INJ ONE (10:54)
[2019-04-07] MEDS ORDERED: dexAMETHasone 20 MG/5 ML VIAL ONE (10:54)
[2019-04-07] MEDS ORDERED: ONDANSETRON 4 MG/2 ML INJ ONE ×2 (10:54→13:14)
[2019-04-07] MEDS ORDERED: SODIUM CHLORIDE 0.9% IRR 1,000 ML BOTTLE IR ONE (11:49)
--- NOTE | 2019-04-07 11:53 | Anesthesia Day of Surgery ---
Anesthesia Day of Surgery - Day of Surgery Patient Examined: Yes Patient H&P Reviewed: Yes Patient is NPO: Yes
[2019-04-07] MEDS ORDERED: LIDOCAINE (1%) 10 MG/1 ML VIAL 20 ML MDV INFILTRATI ONE (12:10)
[2019-04-07] MEDS: HYDROmorphone 1 MG/1 ML INJ IV PRN ×2 (13:02→13:09)
[2019-04-07] MEDS ORDERED: HYDROmorphone 1 MG/1 ML INJ ONE (13:03)
--- NOTE | 2019-04-07 13:09 | Post Anesthesia Evaluation ---
- Post Anesthesia Evaluation Patient Participated: Yes Airway Patent: Yes Stable Respiratory Function: Yes Nausea/Vomiting: No Temp > 96.8F: Yes Pain Manageable: Yes Adequeate Hydration: Yes Anesthesia Complications: No
[2019-04-07] MEDS: ONDANSETRON 4 MG/2 ML INJ IV PRN (13:14)
--- NOTE | 2019-04-07 13:20 | Operative Report ---
Operative Report Operative Report: DATE: 04/07/2019 SURGEON: DUTSY BACA MD ASSIST: N/A PRE-OP DX: LEFT FOOT 5TH TOE DIABETIC WOUND AND OSTEOMYLITIS POST OP DX: LEFT FOOT DIABETIC WOUND WITH ABSCESS AROUND 5TH DIGIT, AND NON HEALING WOUND ANESTHESIA: GETA SPECIMEN: CULTURES AND EXCISED TISSUE PROCEDURE: DEBRIDEMENT OF LEFT FOOT WOUND WITH DRAINAGE OF ABSCESS AND CULTURES COMPLICATIONS: NON IMMEDIATE INDICATION: 33 YEAR OLD FEMALE PRESENTED TO ED WITH SEVERAL DAY HX OF LEFT FOOT WITH WORSENING PAIN, SWELLING, AND WOUND ON SOLE OF FOOT THAT WAS NOT HEALING. SHE HAS DIABETES AND A HX OF COMPLICATIONS REQUIRING OTHER PROCEDURES ON THAT FOOT. SHE SIGNED INFORMED CONSENT. DETAILS OF PROCEDURE: PT WAS BROUGHT INTO OR SUITE AND LAID ONTO OR TABLE IN SUPINE POSITION. GENERAL ANESTHESIA WAS PLACED WITH LMA DEVICE. HER LEFT FOOT WAS PREPPED AND DRAPED IN STERILE FASHION. AFTER A TIME OUT WAS PERFORMED, THE ESHCAR AND FIBRINOUS EXUDATE WAS EXCISED WITH SHARP DISSECTION USING A SCALPEL. THERE WAS NOTED TO BE ABSCESS CAVITIES FILLED WITH PURULENT MATERIAL ANTERIOR TO THE 5TH DIGIT, AND TRACKING IN THE INTER-WEB SPACE BETWEEN THE 4TH AND 5TH DIGITS. ALL TISSUE WAS EXCISED AND GOOD BLEEDING WAS APPRECIATED. TISSUE EXCISION WAS PERFORMED DOWN TO THE POINT THAT THE HEAD OF THE 5TH METATARSAL HEAD WAS PALPABLE WITH MINIMAL TISSUE STILL ADHERED. THE ABSCESS CAVITIES WERE DRAINED UNTIL NO PURULENT FLUID COULD BE EXPRESSED, AND THEN IRRIGATED WITH SALINE. THE CAVITIES WERE THEN PACKED WITH IODOFORM GAUZE FOLLOWED BY FLUFF GAUZE AND ABD PAD. THERE WAS NOTED TO BE EARLY STAGES OF SKIN MOTTLING AND SLOUGHING. THE WOUND BEFORE DEBRIDEMENT MEASURED ABOUT 4X3CM. AFTER DEBRIDEMENT ABOUT 4X4CM WITH AN EXTENSION VIA REMOVED SKIN BETWEEN THE 4TH AND 5TH DIGITS. FINDINGS ARE CONSISTENT WITH A HIGHER CHANCE WITH POTENTIALLY NEEDING TO HAVE A TOE AMPUTATION THE FUTURE. PT WAS AWOKEN, LMA REMOVED AND TAKEN TO RECOVERY IN STABLE CONDITION. FINDINGS: INFECTED WOUND WITH MEASUREMENTS LISTED ABOUT, ABSCESS ANTERIOR AND AROUND 5TH DIGIT WITH NECROTIC TISSUE.
[2019-04-07] MEDS: ENOXAPARIN 40 MG/0.4 ML INJ SUB-Q SCH (23:28)
[2019-04-08] MEDS: VANCOMYCIN 1,750 MG in SODIUM CHLORIDE 0.9% 500 ML 500 ML IV SCH (02:16)
[2019-04-08] MEDS: CEFEPIME/NS 2 GM/100 ML 2 GM/100 ML BAG IV SCH (05:45)
[2019-04-08] MEDS: metroNIDAZOLE/NS 500 MG/100 ML 500 MG/100 ML BAG IV SCH ×2 (06:55→16:27)
[2019-04-08 07:30] LABS: Basophils # (Auto) 0.1 K/mm3 (0.0-0.1); Basophils % (Auto) 0.7 % (0.0-1.8); Eosinophils # (Auto) 0.1 K/mm3 (0.0-0.4); Eosinophils % (Auto) 0.8 % (0.0-4.3); Hematocrit 32.1 % (30.3-42.9); Hemoglobin 10.5 gm/dl (10.1-14.3); Lymphocytes # (Auto) 2.4 K/mm3 (1.2-5.4); Lymphocytes % (Auto) 19.2 % (13.4-35.0); Mean Corpuscular HGB Conc 33 % (30-34); Mean Corpuscular Volume 86 fl (79-97); Monocytes # (Auto) 0.8 K/mm3 (0.0-0.8); Monocytes % (Auto) 6.2 % (0.0-7.3); Platelet Count 419 K/mm3 (140-440); Red Blood Count 3.72 M/mm3 (3.65-5.03); Red Cell Distribution Width 12.9 % (13.2-15.2)
[2019-04-08] MEDS: INSULIN LISPRO 100 UNIT/ML SUB-Q SCH ×8 (07:30→22:11)
[2019-04-08 07:41] LABS: BUN/Creatinine Ratio 13; Blood Urea Nitrogen 8 mg/dL (7-17); Calcium 8.3 mg/dL (8.4-10.2); Hemolysis Index 2
[2019-04-08] MEDS: INSULIN GLARGINE 100 UNITS/ML SUB-Q SCH (08:55)
[2019-04-08] MEDS: VANCOMYCIN 1,500 MG in SODIUM CHLORIDE 0.9% 500 ML 500 ML IV SCH ×2 (11:22→22:10)
[2019-04-08] MEDS: SODIUM CHLORIDE 0.9% 1000 ML 1,000 ML IV SCH (11:23)
--- NOTE | 2019-04-08 11:24 | Progress Note ---
Assessment and Plan POD#1 s/p incision, drainage and debridement of left foot diabetic foot wound. radiographic evidence of osteomylitis. stable, afebrile, fluctuating blood sugars due to extensive infection, and tissue loss with osteomylitis, left 5th digit should be evaluated for the need for amputation. A consult to Dr. Neal was placed. Continue antibiotics. Subjective Date of service: 04/08/19 Patient Reports: Positive: no new complaints (no acute events over night), feels better Objective Vital Signs - 12hr 04/08/19 04:42 Temperature 97.6 F Pulse Rate 80 Respiratory 24 Rate Blood Pressure 124/70 O2 Sat by Pulse 98 Oximetry - General physical appearance well developed, well nourished, no distress - Respiratory normal expansion, normal respiratory effort (left foot with bandage, c/d/i) - Labs 04/08/19 06:45 04/08/19 06:45 Diabetes panel 04/08/19 Range/Units 06:45 Sodium 135 L (137-145) mmol/L Potassium 3.8 (3.6-5.0) mmol/L Chloride 101.0 (98-107) mmol/L Carbon Dioxide 20 L (22-30) mmol/L BUN 8 (7-17) mg/dL Creatinine 0.6 L (0.7-1.2) mg/dL Glucose 316 H (65-100) mg/dL Calcium 8.3 L (8.4-10.2) mg/dL Calcium panel 04/08/19 Range/Units 06:45 Calcium 8.3 L (8.4-10.2) mg/dL Pituitary panel 04/08/19 Range/Units 06:45 Sodium 135 L (137-145) mmol/L Potassium 3.8 (3.6-5.0) mmol/L Chloride 101.0 (98-107) mmol/L Carbon Dioxide 20 L (22-30) mmol/L BUN 8 (7-17) mg/dL Creatinine 0.6 L (0.7-1.2) mg/dL Glucose 316 H (65-100) mg/dL Calcium 8.3 L (8.4-10.2) mg/dL Adrenal panel 04/08/19 Range/Units 06:45 Sodium 135 L (137-145) mmol/L Potassium 3.8 (3.6-5.0) mmol/L Chloride 101.0 (98-107) mmol/L Carbon Dioxide 20 L (22-30) mmol/L BUN 8 (7-17) mg/dL Creatinine 0.6 L (0.7-1.2) mg/dL Glucose 316 H (65-100) mg/dL Calcium 8.3 L (8.4-10.2) mg/dL
--- NOTE | 2019-04-08 13:02 | Progress Note ---
Assessment and Plan Cultures: 04/04/2019 blood culture:no growth today OR culture 04/07/2019 group B Strep MRSA screening negative Previous chart and cultures reviewed, left foot wound had grown skin adithya. A/P: 33-year-old female with diabetes mellitus type 2, morbid obesity, prior admission for left foot cellulitis in 04/2018 requiring s/p excisional debridement of wound and incision and drainage of left medial food abscess treated with empiric abx, then apparently had a relapse requiring additional surgery and prolonged wound care at [facility] x 6 months. Got skin graft placed and the wound was completely healed. Now with: 1) Left diabetic foot infection with osteomyelitis and abscess: MRI shows deep ulcer along the plantar/lateral aspect of the forefoot laterally with underlying advanced cellulitis and associated predominantly dorsal serpiginous soft tissue abscess. In addition, there is osteomyelitis throughout the fifth toe phalanges and, to a lesser degree, within the fifth metatarsal head. Art doppler shows abnormal waveforms on the left. S/p I+D on the left foot on 04/07 wound culture + group B Strep. Will request vascular consult and treat for 6 weeks 2) Diabetes mellitus type 2, uncontrolled: Recommend tight glycemic control. 3) Hyponatremia 4) Obesity Recs: Vascular consult for abnormal left arterial US Stop IV cefepime and vancomycin Continue flagyl Start ceftriaxone 2 gm IV q day Tight glycemic control At discharge will do ceftriaxone 2 gm IV q day +/- flagyl 500 mg po TID for 6 weeks until 05/20/2019. Order sent to case coordinator She has a PICC Will follow. Keshia English MD Infectious Diseases Pressurization Mechanic [facility] ([facility]) M [phone] O [phone] Subjective Date of service: 04/08/19 Principal diagnosis: left foot diabetic ulcer Interval history: Patient feels better, no fever. Pain is better. Went to the OR yesterday. Objective - Exam Narrative Exam: General appearance: Alert in NAD Eyes: anicteric sclerae, moist conjunctivae; no lid-lag; PERRLA HENT: Atraumatic; oropharynx clear with moist mucous membranes and no mucosal ulcerations/no oral thrush; normal hard and soft palate. Lungs: CTA, with normal respiratory effort and no intercostal retractions CV: RRR no murmur Abdomen: Soft, non-tender; no masses or hepatosplenomegaly Extremities: +left foot edema with 5th mt wound with dressings Skin: No rash. Psych: Appropriate affect, alert and oriented to person, place and time. Neuro: alert and oriented x 3. Moving all extermities - Constitutional Vitals: Vital Signs Temp Pulse Resp BP Pulse Ox 98.8 F 88 15 119/79 98 04/08/19 12:07 04/08/19 12:07 04/08/19 12:07 04/08/19 12:07 04/08/19 12:07 Temperature -Last 24 Hours Temperature 98.8 F Temperature 97.6 F Temperature 98.0 F Temperature 98.2 F Temperature 98.1 F - Labs CBC & Chem 7: 04/08/19 06:45 04/08/19 06:45 Labs: Abnormal lab results 04/07/19 04/07/19 04/07/19 Range/Units 12:40 16:49 21:19 WBC (4.5-11.0) K/mm3 RDW (13.2-15.2) % Seg Neutrophils % (40.0-70.0) % Seg Neutrophils # (1.8-7.7) K/mm3 Sodium (137-145) mmol/L Carbon Dioxide (22-30) mmol/L Creatinine (0.7-1.2) mg/dL Glucose (65-100) mg/dL POC Glucose 225 H 286 H 393 H (70-105) Calcium (8.4-10.2) mg/dL 04/08/19 04/08/19 04/08/19 Range/Units 06:45 06:45 07:58 WBC 12.7 H (4.5-11.0) K/mm3 RDW 12.9 L (13.2-15.2) % Seg Neutrophils % 73.1 H (40.0-70.0) % Seg Neutrophils # 9.3 H (1.8-7.7) K/mm3 Sodium 135 L (137-145) mmol/L Carbon Dioxide 20 L (22-30) mmol/L Creatinine 0.6 L (0.7-1.2) mg/dL Glucose 316 H (65-100) mg/dL POC Glucose 326 H (70-105) Calcium 8.3 L (8.4-10.2) mg/dL
[2019-04-08] MEDS: HYDROcodone/ACETAMINOPHEN 5-325 MG TAB PO PRN (13:06)
--- NOTE | 2019-04-08 15:08 | Progress Note ---
Assessment and Plan Assessment and plan: 32-year-old -Gabonese female with past medical history significant for morbid obesity, uncontrolled diabetes mellitus presented to the emergency department with complaints of left lower extremity pain, and discharge for the last 3-4 days Osteomyelitis and abscess of the left 5th toe, cellulitis and abscess of Left foot - Patient is on IV antibiotics - ID consult appreciated -sp Gen. surgery and and wound debridement 04/07 -Dr Neal to see her for possible amputation of infected toe with OM, 5th toe Uncontrolled diabetes mellitus - Hemoglobin A1c is 13.5, continue insulins, Morbid obesity -Patient was extensively counseled about diet and exercise to lose weight Nonadherence, consulted Grief, counseled DVT prophylaxis Disposition Continue inpatient care History Interval history: Patient was seen and evaluated this morning, patient didn't have any new complaints. still has pain, swelling and drainage from left foot, but is in good spirits Hospitalist Physical - Physical exam Narrative exam: Not in cardiopulmonary distress. The patient appeared well nourished and normally developed. Vital signs as documented. Head exam is unremarkable. No scleral icterus . Neck is without jugular venous distension, thyromegaly, or carotid bruits. Lungs are clear to auscultation. Cardiac exam reveals regular rate and Rhythm. First and second heart sounds normal. No murmurs, rubs or gallops. Abdominal exam reveals normal bowel sounds, no masses, no organomegaly and no aortic enlargement. Extremities clean dressing on the left lower foot. 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 No focal weakness. Hospitalist Physical - Constitutional Vitals: Temp Pulse Resp BP Pulse Ox 98.8 F 88 15 119/79 98 04/08/19 12:07 04/08/19 12:07 04/08/19 12:07 04/08/19 12:07 04/08/19 12:07 Results - Labs CBC & Chem 7: 04/08/19 06:45 04/08/19 06:45 Labs: Laboratory Last Values WBC 12.7 K/mm3 (4.5-11.0) H 04/08/19 06:45 RBC 3.72 M/mm3 (3.65-5.03) 04/08/19 06:45 Hgb 10.5 gm/dl (10.1-14.3) 04/08/19 06:45 Hct 32.1 % (30.3-42.9) 04/08/19 06:45 MCV 86 fl (79-97) 04/08/19 06:45 MCH 28 pg (28-32) 04/08/19 06:45 MCHC 33 % (30-34) 04/08/19 06:45 RDW 12.9 % (13.2-15.2) L 04/08/19 06:45 Plt Count 419 K/mm3 (140-440) 04/08/19 06:45 Lymph % (Auto) 19.2 % (13.4-35.0) 04/08/19 06:45 Riley % (Auto) 6.2 % (0.0-7.3) 04/08/19 06:45 Eos % (Auto) 0.8 % (0.0-4.3) 04/08/19 06:45 Baso % (Auto) 0.7 % (0.0-1.8) 04/08/19 06:45 Lymph # 2.4 K/mm3 (1.2-5.4) 04/08/19 06:45 Riley # 0.8 K/mm3 (0.0-0.8) 04/08/19 06:45 Eos # 0.1 K/mm3 (0.0-0.4) 04/08/19 06:45 Baso # 0.1 K/mm3 (0.0-0.1) 04/08/19 06:45 Seg Neutrophils % 73.1 % (40.0-70.0) H 04/08/19 06:45 Seg Neutrophils # 9.3 K/mm3 (1.8-7.7) H 04/08/19 06:45 ESR 88 mm/Hr (0-20) 04/04/19 23:14 APTT 34.1 Sec. (24.2-36.6) 04/04/19 23:49 VBG pH 7.354 (7.320-7.420) 04/04/19 23:49 Sodium 135 mmol/L (137-145) L 04/08/19 06:45 Potassium 3.8 mmol/L (3.6-5.0) 04/08/19 06:45 Chloride 101.0 mmol/L (98-107) 04/08/19 06:45 Carbon Dioxide 20 mmol/L (22-30) L 04/08/19 06:45 Anion Gap 18 mmol/L 04/08/19 06:45 BUN 8 mg/dL (7-17) 04/08/19 06:45 Creatinine 0.6 mg/dL (0.7-1.2) L 04/08/19 06:45 Estimated GFR > 60 ml/min 04/08/19 06:45 BUN/Creatinine Ratio 13 % 04/08/19 06:45 Glucose 316 mg/dL (65-100) H 04/08/19 06:45 POC Glucose 339 (70-105) H 04/08/19 12:19 Hemoglobin A1c 13.5 % (4-6) H 04/05/19 02:23 Lactic Acid 1.50 mmol/L (0.7-2.0) 04/05/19 02:23 Calcium 8.3 mg/dL (8.4-10.2) L 04/08/19 06:45 Magnesium 1.90 mg/dL (1.7-2.3) 04/04/19 23:49 Total Bilirubin 0.40 mg/dL (0.1-1.2) 04/04/19 23:14 AST 11 units/L (5-40) 04/04/19 23:14 ALT 11 units/L (7-56) 04/04/19 23:14 Alkaline Phosphatase 157 units/L (35-129) H 04/04/19 23:14 Total Creatine Kinase 67 units/L (30-135) 04/04/19 23:49 C-Reactive Protein 16.10 mg/dL (0.00-1.30) H 04/04/19 23:49 Total Protein 8.8 g/dL (6.3-8.2) H 04/04/19 23:14 Albumin 3.9 g/dL (3.9-5) 04/04/19 23:14 Albumin/Globulin Ratio 0.8 % 04/04/19 23:14 HCG, Qual Negative (Negative) 04/04/19 23:22 Urine Color Yellow (Yellow) 04/04/19 12:05 Urine Turbidity Slightly-cloudy (Clear) 04/04/19 12:05 Urine pH 6.0 (5.0-7.0) 04/04/19 12:05 Ur Specific [place] 1.028 (1.003-1.030) 04/04/19 12:05 Urine Protein <15 mg/dl mg/dL (Negative) 04/04/19 12:05 Urine Glucose (UA) >=500 mg/dL (Negative) 04/04/19 12:05 Urine Ketones Tr mg/dL (Negative) 04/04/19 12:05 Urine Blood Sm (Negative) 04/04/19 12:05 Urine Nitrite Neg (Negative) 04/04/19 12:05 Urine Bilirubin Neg (Negative) 04/04/19 12:05 Urine Urobilinogen < 2.0 mg/dL (<2.0) 04/04/19 12:05 Ur Leukocyte Esterase Lg (Negative) 04/04/19 12:05 Urine WBC (Auto) 46.0 /HPF (0.0-6.0) H 04/04/19 12:05 Urine RBC (Auto) 12.0 /HPF (0.0-6.0) 04/04/19 12:05 U Epithel Cells (Auto) 19.0 /HPF (0-13.0) H 04/04/19 12:05 Urine Bacteria (Auto) 1+ /HPF (Negative) 04/04/19 12:05 Vancomycin Trough 8.9 ug/mL (5.0-20.0) 04/07/19 13:34 Active Medications - Current Medications Current Medications: Generic Name Dose Route Start Last Admin Trade Name Freq PRN Reason Stop Dose Admin Acetaminophen 650 mg 04/05/19 01:40 Tylenol PO Q4H PRN Pain MILD(1-3)/Fever >100.5/ANDERSON Acetaminophen/Hydrocodone Bitart 2 each 04/05/19 01:40 04/08/19 13:06 [place] 5/325 PO 2 each Q6H PRN Administration Pain, Moderate (4-6) Dextrose 50 ml 04/05/19 01:40 D50w (25gm) Syringe IV PRN PRN Hypoglycemia Enoxaparin Sodium 40 mg 04/05/19 22:00 04/07/19 23:28 Lovenox SUB-Q Not Given QDAY@2200 [facility] Sodium Chloride 1,000 mls @ 100 mls/hr 04/05/19 02:00 04/08/19 11:23 Nacl 0.9% 1000 Ml IV 100 mls/hr DIRECT BA Administration Vancomycin HCl 1,500 mg/ 530 mls @ 333.333 mls/hr 04/08/19 12:00 04/08/19 11:22 Sodium Chloride IV 333.333 mls/hr Q8HR BA Administration Metronidazole 500 mg in 100 mls @ 100 mls/hr 04/08/19 16:00 Flagyl 500 Mg/100 Ml IV Q8HR@0000,0800,1600 BA Protocol Insulin Glargine 35 units 04/06/19 09:00 04/08/19 08:55 Lantus SUB-Q 35 units QAMDIAB BA Administration Insulin Human Lispro 0 unit 04/05/19 07:30 04/08/19 11:30 Humalog SUB-Q 8 unit ACHS BA Administration Protocol Insulin Human Lispro 15 unit 04/07/19 08:30 04/08/19 11:30 Humalog SUB-Q 15 unit ACHS BA Administration Protocol Ondansetron HCl 4 mg 04/05/19 01:40 04/07/19 13:14 Zofran IV 4 mg Q6H PRN Administration Nausea And Vomiting Sodium Chloride 10 ml 04/05/19 10:00 04/08/19 11:18 Sodium Chloride Flush Syringe 10 Ml IV 10 ml BID BA Administration Sodium Chloride 10 ml 04/05/19 01:40 Sodium Chloride Flush Syringe 10 Ml IV PRN PRN LINE FLUSH
[2019-04-08] MEDS ORDERED: CEFEPIME/NS 2 GM/100 ML 2 GM/100 ML BAG IV SCH (16:00)
--- NOTE | 2019-04-08 16:50 | Consultation ---
History of Present Illness - Reason for Consult Consult date: 04/08/19 Left 5th digit wound with abnormal duplex - History of Present Illness 33 year old female who presented to the ED with a 3 day history of worsening left foot pain, swelling, and drainage of would on sole of left foot. she has had problems with that foot before and had several procedures in the last year. She says that the foot is painful. she has a history of neuropathy from her diabetes but says that it feels about the same in terms of sensation compared to before the wound started. Patient had abnormal arterial duplex demonstrating monophasic flow in the left infrapopliteal arterial history. She has palpable left dorsalis pedis pulses and nonpalpable left posterior tibial pulse. Past History Past Medical History: diabetes, other (boils) Past Surgical History: (x1), Other (left foot surgery x3) Social history: lives with family Family history: no significant family history Medications and Allergies Allergies Allergy/AdvReac Type Severity Reaction Status Date / Time No Known Allergies Allergy Verified 04/14/17 19:08 Home Medications Medication Instructions Recorded Confirmed Last Taken Type Lispro Insulin [HumaLOG] 0 unit SUB-Q ACHS 30 Days units 05/03/18 04/05/19 Unknown Rx Active Meds: Active Medications Acetaminophen (Tylenol) 650 mg PO Q4H PRN PRN Reason: Pain MILD(1-3)/Fever >100.5/ANDERSON Acetaminophen/Hydrocodone Bitart ([place] 5/325) 2 each PO Q6H PRN PRN Reason: Pain, Moderate (4-6) Last Admin: 04/08/19 13:06 Dose: 2 each Documented by: Dextrose (D50w (25gm) Syringe) 50 ml IV PRN PRN PRN Reason: Hypoglycemia Enoxaparin Sodium (Lovenox) 40 mg SUB-Q QDAY@2200 [facility] Last Admin: 04/07/19 23:28 Dose: Not Given Documented by: Sodium Chloride (Nacl 0.9% 1000 Ml) 1,000 mls @ 100 mls/hr IV DIRECT [facility] Last Admin: 04/08/19 11:23 Dose: 100 mls/hr Documented by: Vancomycin HCl 1,500 mg/ (Sodium Chloride) 530 mls @ 333.333 mls/hr IV Q8HR [facility] Last Admin: 04/08/19 11:22 Dose: 333.333 mls/hr Documented by: Metronidazole (Flagyl 500 Mg/100 Ml) 500 mg in 100 mls @ 100 mls/hr IV Q8HR@0000,0800,1600 [facility]; Protocol Last Admin: 04/08/19 16:27 Dose: 100 mls/hr Documented by: Insulin Glargine (Lantus) 35 units SUB-Q QAMDIAB [facility] Last Admin: 04/08/19 08:55 Dose: 35 units Documented by: Insulin Human Lispro (Humalog) 0 unit SUB-Q [facility]; Protocol Last Admin: 04/08/19 11:30 Dose: 8 unit Documented by: Insulin Human Lispro (Humalog) 15 unit SUB-Q [facility]; Protocol Last Admin: 04/08/19 11:30 Dose: 15 unit Documented by: Ondansetron HCl (Zofran) 4 mg IV Q6H PRN PRN Reason: Nausea And Vomiting Last Admin: 04/07/19 13:14 Dose: 4 mg Documented by: Sodium Chloride (Sodium Chloride Flush Syringe 10 Ml) 10 ml IV BID [facility] Last Admin: 04/08/19 11:18 Dose: 10 ml Documented by: Sodium Chloride (Sodium Chloride Flush Syringe 10 Ml) 10 ml IV PRN PRN PRN Reason: LINE FLUSH Review of Systems All systems: negative (see HPI) Exam - Constitutional Vitals: Temp Pulse Resp BP Pulse Ox 98.8 F 88 15 119/79 98 04/08/19 12:07 04/08/19 12:07 04/08/19 12:07 04/08/19 12:07 04/08/19 12:07 General appearance: Present: no acute distress - EENT Eyes: Present: EOM intact ENT: hearing intact - Respiratory Respiratory effort: normal - Extremities Extremities: normal temperature, normal color, abnormal (bandaged left foot ; palpable left doralis pedis, nonpalpable left postior tibial, palpable right PT and DP, edema 3+ LLE and 2+ RLE) - Psychiatric Psychiatric: appropriate mood/affect, cooperative Results - Labs CBC & Chem 7: 04/08/19 06:45 04/08/19 06:45 Labs: Abnormal lab results 04/07/19 04/07/19 04/08/19 Range/Units 12:40 21:19 06:45 WBC 12.7 H (4.5-11.0) K/mm3 RDW 12.9 L (13.2-15.2) % Seg Neutrophils % 73.1 H (40.0-70.0) % Seg Neutrophils # 9.3 H (1.8-7.7) K/mm3 Sodium (137-145) mmol/L Carbon Dioxide (22-30) mmol/L Creatinine (0.7-1.2) mg/dL Glucose (65-100) mg/dL POC Glucose 225 H 393 H (70-105) Calcium (8.4-10.2) mg/dL 04/08/19 04/08/19 04/08/19 Range/Units 06:45 07:58 12:19 WBC (4.5-11.0) K/mm3 RDW (13.2-15.2) % Seg Neutrophils % (40.0-70.0) % Seg Neutrophils # (1.8-7.7) K/mm3 Sodium 135 L (137-145) mmol/L Carbon Dioxide 20 L (22-30) mmol/L Creatinine 0.6 L (0.7-1.2) mg/dL Glucose 316 H (65-100) mg/dL POC Glucose 326 H 339 H (70-105) Calcium 8.3 L (8.4-10.2) mg/dL Assessment and Plan 33 year old female with poorly controlled type 1 diabetes (HGA1C 13.5) and di abetic foot infection requiring debridement of the left 5th digit/interweb space. Palpable left dorsalis pedis with nonpalpable left posterior tibial. Abnormal arterial duplex suggesting infrapopliteal arterial disease. Given abnormal ultrasound, and open wound, I'll make patient NPO after MN except meds with plan for angiography and possible endovascualar revascularization. Suspect will have adequate blood to heal. R/B/A discussed.
[2019-04-08] MEDS: ENOXAPARIN 40 MG/0.4 ML INJ SUB-Q SCH (22:12)
[2019-04-09] MEDS: metroNIDAZOLE/NS 500 MG/100 ML 500 MG/100 ML BAG IV SCH ×3 (00:31→16:00)
[2019-04-09] MEDS: VANCOMYCIN 1,500 MG in SODIUM CHLORIDE 0.9% 500 ML 500 ML IV SCH (05:38)
[2019-04-09] MEDS: SODIUM CHLORIDE 0.9% 1000 ML 1,000 ML IV SCH (06:04)
[2019-04-09] MEDS: ONDANSETRON 4 MG/2 ML INJ IV PRN (07:59)
[2019-04-09] MEDS: INSULIN GLARGINE 100 UNITS/ML SUB-Q SCH (08:32)
[2019-04-09] MEDS: INSULIN LISPRO 100 UNIT/ML SUB-Q SCH ×7 (08:32→23:36)
[2019-04-09] MEDS ORDERED: SODIUM CHLORIDE 0.9% 1000 ML 1,000 ML ONE (09:41)
[2019-04-09 10:04] LABS: INR 1.03 (0.87-1.13)
[2019-04-09 10:05] LABS: Partial Thromboplastin Time 30.8 Sec. (24.2-36.6)
[2019-04-09] MEDS ORDERED: HEPARIN 10,000 UNITS/10 ML VIAL ONE (10:06)
[2019-04-09] MEDS ORDERED: HEPARIN/NS 5000 UNIT/500ML 1,000 ML IR ONE (10:06)
--- NOTE | 2019-04-09 10:06 | Consultation ---
History of Present Illness Consult date: 04/09/19 Chief complaint: Left 5th toe ulcer - History of present illness History of present illness: 33 yo Type I diabetic who presented to the ER with a left 5th toe abscess. This was I&D'd by Dr. Gonzáles on 04/07/19. Pt was seen in the cath area. She is about to have an attempted revascularization procedure. Past History Past Medical History: diabetes, other (boils) Past Surgical History: (x1), Other (left foot surgery x3) Social history: lives with family Family history: no significant family history Medications and Allergies Allergies Allergy/AdvReac Type Severity Reaction Status Date / Time No Known Allergies Allergy Verified 04/14/17 19:08 Home Medications Medication Instructions Recorded Confirmed Last Taken Type Lispro Insulin [HumaLOG] 0 unit SUB-Q ACHS 30 Days units 05/03/18 04/05/19 Unknown Rx Active Meds: Active Medications Acetaminophen (Tylenol) 650 mg PO Q4H PRN PRN Reason: Pain MILD(1-3)/Fever >100.5/[place] Acetaminophen/Hydrocodone Bitart ([place] 5/325) 2 each PO Q6H PRN PRN Reason: Pain, Moderate (4-6) Last Admin: 04/08/19 13:06 Dose: 2 each Documented by: Dextrose (D50w (25gm) Syringe) 50 ml IV PRN PRN PRN Reason: Hypoglycemia Enoxaparin Sodium (Lovenox) 40 mg SUB-Q QDAY@2200 [facility] Last Admin: 04/08/19 22:12 Dose: Not Given Documented by: Sodium Chloride (Nacl 0.9% 1000 Ml) 1,000 mls @ 100 mls/hr IV DIRECT [facility] Last Admin: 04/09/19 06:04 Dose: 100 mls/hr Documented by: Metronidazole (Flagyl 500 Mg/100 Ml) 500 mg in 100 mls @ 100 mls/hr IV Q8HR@0000,0800,1600 [facility]; Protocol Last Admin: 04/09/19 07:59 Dose: 100 mls/hr Documented by: Ceftriaxone Sodium (Rocephin/Ns 2 Gm/100 Ml) 2 gm in 100 mls @ 200 mls/hr IV Q24HR BA Stop: 05/20/19 10:29 Insulin Glargine (Lantus) 35 units SUB-Q [facility]AMDIAB [facility] Last Admin: 04/09/19 08:32 Dose: Not Given Documented by: Insulin Human Lispro (Humalog) 0 unit SUB-Q [facility]; Protocol Last Admin: 04/09/19 08:32 Dose: Not Given Documented by: Insulin Human Lispro (Humalog) 15 unit SUB-Q [facility]; Protocol Last Admin: 04/09/19 08:33 Dose: Not Given Documented by: Ondansetron HCl (Zofran) 4 mg IV Q6H PRN PRN Reason: Nausea And Vomiting Last Admin: 04/09/19 07:59 Dose: 4 mg Documented by: Sodium Chloride (Sodium Chloride Flush Syringe 10 Ml) 10 ml IV BID [facility] Last Admin: 04/08/19 22:12 Dose: 10 ml Documented by: Sodium Chloride (Sodium Chloride Flush Syringe 10 Ml) 10 ml IV PRN PRN PRN Reason: LINE FLUSH Review of Systems All systems: negative (none.) Exam Vital Signs Pulse Resp BP Pulse Ox 68 18 149/81 99 04/04/19 19:20 04/04/19 19:20 04/04/19 19:20 04/04/19 19:20 - General physical appearance Positive: well developed, well nourished, no distress - Eyes Positive: PERRL, normal occular movement - ENT Positive: normal pinna, normal nares, normal mucosa, no hearing loss, no co ngestion - Neck Positive: no masses, no bruits, trachea midline, no venous distension - Respiratory Positive: normal expansion, normal respiratory effort, clear to auscultation - Cardiovascular Rhythm: regular Heart Sounds: Present: S1 & S2. Absent: rub, click - Extremities Extremities: No edema, normal temperature, normal color, Full ROM - Breasts Breasts: deferred - Abdomen Abdomen: Present: soft, bowel sounds normal. Absent: tender, distended Hernia: none - Genitourinary Female Genitourinary: deferred - Integumentary other (There is a 5 X 3 X 1.7 cm ulcer at the base of the left 5th toe and distal lateral foot. There is no significant associated drainage. There is some exposed necrotic fascia and SQ tissue. There is no associated cellulitis.) - Neurologic Neurologic: alert and oriented to time, place and person, motor strength and sensation are grossly intact - Musculoskeletal normal gait, normal posture - Psychiatric Psychiatric: appropriate mood/affect, intact judgment & insight Results - Labs 04/08/19 06:45 04/08/19 06:45 Abnormal lab results 04/08/19 04/08/19 04/08/19 Range/Units 12:19 17:00 21:27 POC Glucose 339 H 201 H 249 H (70-105) 04/09/19 Range/Units 07:13 POC Glucose 244 H (70-105) - Imaging Additional studies: A1c on 04/05/19 was 13.5. MRI on 04/05/19 revealed osteomyelitis of the left 5th toe phalanges and adjacent metatarsal head. Arterial dopplers on 04/05/19 revealed abnormal waveforms in the LLE runoff vessels. Assessment and Plan - Patient Problems (1) Osteomyelitis of left foot Current Visit: Yes Status: Acute Plan to address problem: 1) ID consult 2) Pt is about to have an attempted revascularization procedure. 3) Wound Care nurse consult 4) Discussed 6-8 weeks of IV antibiotics + HBOT vs proceeding with 5th toe amputation. Pt desires to think it over. I will check with her again tomorrow.
[2019-04-09] MEDS ORDERED: LIDOCAINE 1%/EPINEPHRINE 1:100,000 VIAL (20 ML) INFILTRATI ONE (10:07)
[2019-04-09] MEDS ORDERED: ceFAZolin/Water 2 GM/20 ML 2 GM/20 ML SYRINGE IV ONE (10:09)
[2019-04-09] MEDS: fentaNYL 100 MCG/2 ML INJ ONE ×3 (10:32→10:45)
[2019-04-09] MEDS: MIDAZOLAM 2 MG/2 ML INJ ONE ×2 (10:32→10:37)
[2019-04-09] MEDS ORDERED: NITROGLYCERIN SYRINGE 3 ML ONE (10:51)
[2019-04-09] MEDS ORDERED: fentaNYL 100 MCG/2 ML INJ ONE (10:57)
[2019-04-09] MEDS ORDERED: MIDAZOLAM 2 MG/2 ML INJ ONE (10:57)
--- NOTE | 2019-04-09 11:05 | Post Operative Note ---
Date of procedure: 04/09/19 Pre-op diagnosis: Atherosclerotic disease with left lower extremity ulceration Post-op diagnosis: same Findings: Three vessel runoff to the left lower extremity ; mild spasm of the left distal posterior tibial artery which resolved with nitroglycerin ; adequate flow to heal Procedure: 1. Ultrasound guided access of the right common femoral artery 2. Angiography of the right lower extremity 3. Selection of the abdominal aorta with angiography 4. Selection of the left external iliac artery, superficial femoral artery and popliteal artery with angiography 5. Closure of the right common femoral artery with 6 Fr proglide Anesthesia: local (w/ conscious sedation) Surgeon: CARLOS A CHURCH Estimated blood loss: minimal Condition: stable Disposition: floor
--- NOTE | 2019-04-09 11:09 | Operative Report ---
Operative Report Operative Report: EXAM: 1. Ultrasound guided access of the right common femoral artery 2. Angiography of the right lower extremity 3. Selection of the abdominal aorta with angiography 4. Selection of the left external iliac artery, superficial femoral artery and popliteal artery with angiography 5. Closure of the right common femoral artery with 6 Fr proglide DATE: 04/09/19 HANDY WORKER: CARLOS A CHURCH MD INDICATION: Abnormal arterial duplex with diabetic infection of the left fifth digit requiring debridement and possible amputation. Nonpalpable left posterior tibial artery. MEDICATIONS: Please see nursing report for full details. DEVICES: None. CONTRAST: 70 mL's of nonionic contrast PROCEDURE: The risks, benefits, and alternatives were discussed with the patient; written informed consent was obtained. The patient was brought to the angiography suite in stable condition. The groins were prepped and draped in a sterile fashion. Ultrasound was used to evaluate the right common femoral artery which was patent. Under direct ultrasound guidance, the right common femoral artery was accessed with a 21- gauge micropuncture needle. 0.018 inch wire was passed into the aorta. Needle was exchanged for transitional dilator. Wire was exchanged for 0.035 inch wire. Transitional dilator was exchanged for a 5 [place] sheath. Digital subtraction angiography was performed demonstrating patency of the right external iliac artery, common femoral artery, proximal superficial femoral artery, and proximal profunda femoral artery. The puncture was appropriate, immediately above the bifurcation and below the inferior epigastric artery. The abdominal aorta was selected with a flush catheter and digital subtraction angiography was performed. The left lower extremity was selected at the level of the left external iliac artery, superficial femoral artery, and popliteal artery and digital subtraction angiography was performed. 600 g of nitroglycerin was injected. Repeat angiography of the tibial vessels was performed. After reviewing the images, all wires, and catheters retracted to the right external iliac artery and a 0.035 inch wire was passed centrally. Sheath was exchanged for 6 [place] Pro-glide which was used to close the arteriotomy with near immediate hemostasis. Sterile dressing and pressure dressing applied. Patient tolerated the procedure well. No immediate postprocedural complication. FINDINGS: Aorta: The infrarenal abdominal aorta is patent. Left lower extremity: Common iliac artery, internal iliac artery, external iliac artery, common femoral artery, superficial femoral artery, profunda femoral artery, and popliteal artery are patent. The tibial peroneal trunk, the peroneal artery, and the anterior tibial artery are patent. Posterior tibial artery had 2 focal areas of 30-50% narrowing at the level of the distal calf which could be part of a standing wave/spasm which resolved with nitroglycerin injection consistent with spasm. Three vessel runoff to the left lower extremity. Right lower extremity: see above IMPRESSION: Successful third order selection of the left lower extremity with ultrasound guided access and closure and diagnostic angiography.
--- NOTE | 2019-04-09 11:13 | Progress Note ---
Assessment and Plan Assessment and plan: 32-year-old -G[place]ian female with past medical history significant for morbid obesity, uncontrolled diabetes mellitus presented to the emergency department with complaints of left lower extremity pain, and discharge for the last 3-4 days Osteomyelitis and abscess of the left 5th toe, cellulitis and abscess of Left foot - Patient is on IV antibiotics - ID consult appreciated -sp Gen. surgery and and wound debridement 04/07 -Dr Neal to amputate 5th toe tomorrow -angiogram LE was wnl, dw dr Greenberg Uncontrolled diabetes mellitus - Hemoglobin A1c is 13.5, continue insulins, increase dose and add metformin Morbid obesity -Patient was extensively counseled about diet and exercise to lose weight Nonadherence, consulted Grief, counseled DVT prophylaxis Disposition Continue inpatient care History Interval history: Patient was seen and evaluated this morning, patient didn't have any new complaints. still has pain, swelling and drainage from left foot, but is in good spirits Hospitalist Physical - Physical exam Narrative exam: Not in cardiopulmonary distress. The patient appeared well nourished and normally developed. Vital signs as documented. Head exam is unremarkable. No scleral icterus . Neck is without jugular venous distension, thyromegaly, or carotid bruits. Lungs are clear to auscultation. Cardiac exam reveals regular rate and Rhythm. First and second heart sounds normal. No murmurs, rubs or gallops. Abdominal exam reveals normal bowel sounds, no masses, no organomegaly and no aortic enlargement. Extremities clean dressing on the left lower foot. PIANO BUILDER: Alert and oriented 3. No focal weakness. Hospitalist Physical - Constitutional Vitals: Temp Pulse Resp BP Pulse Ox 98.5 F 81 20 136/91 99 04/09/19 05:05 04/09/19 05:05 04/09/19 05:05 04/09/19 05:05 04/09/19 05:05 General appearance: Present: no acute distress Results - Labs CBC & Chem 7: 04/08/19 06:45 04/08/19 06:45 Labs: Laboratory Last Values WBC 12.7 K/mm3 (4.5-11.0) H 04/08/19 06:45 RBC 3.72 M/mm3 (3.65-5.03) 04/08/19 06:45 Hgb 10.5 gm/dl (10.1-14.3) 04/08/19 06:45 Hct 32.1 % (30.3-42.9) 04/08/19 06:45 MCV 86 fl (79-97) 04/08/19 06:45 MCH 28 pg (28-32) 04/08/19 06:45 MCHC 33 % (30-34) 04/08/19 06:45 RDW 12.9 % (13.2-15.2) L 04/08/19 06:45 Plt Count 419 K/mm3 (140-440) 04/08/19 06:45 Lymph % (Auto) 19.2 % (13.4-35.0) 04/08/19 06:45 [place] % (Auto) 6.2 % (0.0-7.3) 04/08/19 06:45 Eos % (Auto) 0.8 % (0.0-4.3) 04/08/19 06:45 Baso % (Auto) 0.7 % (0.0-1.8) 04/08/19 06:45 Lymph # 2.4 K/mm3 (1.2-5.4) 04/08/19 06:45 [place] # 0.8 K/mm3 (0.0-0.8) 04/08/19 06:45 Eos # 0.1 K/mm3 (0.0-0.4) 04/08/19 06:45 Baso # 0.1 K/mm3 (0.0-0.1) 04/08/19 06:45 Seg Neutrophils % 73.1 % (40.0-70.0) H 04/08/19 06:45 Seg Neutrophils # 9.3 K/mm3 (1.8-7.7) H 04/08/19 06:45 ESR 88 mm/Hr (0-20) 04/04/19 23:14 PT 13.2 Sec. (12.2-14.9) 04/09/19 09:45 INR 1.03 (0.87-1.13) 04/09/19 09:45 APTT 30.8 Sec. (24.2-36.6) 04/09/19 09:45 VBG pH 7.354 (7.320-7.420) 04/04/19 23:49 Sodium 135 mmol/L (137-145) L 04/08/19 06:45 Potassium 3.8 mmol/L (3.6-5.0) 04/08/19 06:45 Chloride 101.0 mmol/L (98-107) 04/08/19 06:45 Carbon Dioxide 20 mmol/L (22-30) L 04/08/19 06:45 Anion Gap 18 mmol/L 04/08/19 06:45 BUN 8 mg/dL (7-17) 04/08/19 06:45 Creatinine 0.6 mg/dL (0.7-1.2) L 04/08/19 06:45 Estimated GFR > 60 ml/min 04/08/19 06:45 BUN/Creatinine Ratio 13 % 04/08/19 06:45 Glucose 316 mg/dL (65-100) H 04/08/19 06:45 POC Glucose 244 (70-105) H 04/09/19 07:13 Hemoglobin A1c 13.5 % (4-6) H 04/05/19 02:23 Lactic Acid 1.50 mmol/L (0.7-2.0) 04/05/19 02:23 Calcium 8.3 mg/dL (8.4-10.2) L 04/08/19 06:45 Magnesium 1.90 mg/dL (1.7-2.3) 04/04/19 23:49 Total Bilirubin 0.40 mg/dL (0.1-1.2) 04/04/19 23:14 AST 11 units/L (5-40) 04/04/19 23:14 ALT 11 units/L (7-56) 04/04/19 23:14 Alkaline Phosphatase 157 units/L (35-129) H 04/04/19 23:14 Total Creatine Kinase 67 units/L (30-135) 04/04/19 23:49 C-Reactive Protein 16.10 mg/dL (0.00-1.30) H 04/04/19 23:49 Total Protein 8.8 g/dL (6.3-8.2) H 04/04/19 23:14 Albumin 3.9 g/dL (3.9-5) 04/04/19 23:14 Albumin/Globulin Ratio 0.8 % 04/04/19 23:14 HCG, Qual Negative (Negative) 04/04/19 23:22 Urine Color Yellow (Yellow) 04/04/19 12:05 Urine Turbidity Slightly-cloudy (Clear) 04/04/19 12:05 Urine pH 6.0 (5.0-7.0) 04/04/19 12:05 Ur Specific [place] 1.028 (1.003-1.030) 04/04/19 12:05 Urine Protein <15 mg/dl mg/dL (Negative) 04/04/19 12:05 Urine Glucose (UA) >=500 mg/dL (Negative) 04/04/19 12:05 Urine Ketones Tr mg/dL (Negative) 04/04/19 12:05 Urine Blood Sm (Negative) 04/04/19 12:05 Urine Nitrite Neg (Negative) 04/04/19 12:05 Urine Bilirubin Neg (Negative) 04/04/19 12:05 Urine Urobilinogen < 2.0 mg/dL (<2.0) 04/04/19 12:05 Ur Leukocyte Esterase Lg (Negative) 04/04/19 12:05 Urine WBC (Auto) 46.0 /HPF (0.0-6.0) H 04/04/19 12:05 Urine RBC (Auto) 12.0 /HPF (0.0-6.0) 04/04/19 12:05 U Epithel Cells (Auto) 19.0 /HPF (0-13.0) H 04/04/19 12:05 Urine Bacteria (Auto) 1+ /HPF (Negative) 04/04/19 12:05 Vancomycin Trough 8.9 ug/mL (5.0-20.0) 04/07/19 13:34 Active Medications - Current Medications Current Medications: Generic Name Dose Route Start Last Admin Trade Name Freq PRN Reason Stop Dose Admin Acetaminophen 650 mg 04/05/19 01:40 Tylenol PO Q4H PRN Pain MILD(1-3)/Fever >100.5/ANDERSON Acetaminophen/Hydrocodone Bitart 2 each 04/05/19 01:40 04/08/19 13:06 [place] 5/325 PO 2 each Q6H PRN Administration Pain, Moderate (4-6) Dextrose 50 ml 04/05/19 01:40 D50w (25gm) Syringe IV PRN PRN Hypoglycemia Enoxaparin Sodium 40 mg 04/05/19 22:00 04/08/19 22:12 Lovenox SUB-Q Not Given QDAY@2200 BA Sodium Chloride 1,000 mls @ 100 mls/hr 04/05/19 02:00 04/09/19 06:04 Nacl 0.9% 1000 Ml IV 100 mls/hr DIRECT BA Administration Metronidazole 500 mg in 100 mls @ 100 mls/hr 04/08/19 16:00 04/09/19 07:59 Flagyl 500 Mg/100 Ml IV 100 mls/hr Q8HR@0000,0800,1600 [facility] Administration Protocol Ceftriaxone Sodium 2 gm in 100 mls @ 200 mls/hr 04/09/19 11:00 Rocephin/Ns 2 Gm/100 Ml IV 05/20/19 10:29 Q24HR [facility] Insulin Glargine 35 units 04/06/19 09:00 04/09/19 08:32 Lantus SUB-Q Not Given QAMDIAB [facility] Insulin Human Lispro 0 unit 04/05/19 07:30 04/09/19 08:32 Humalog SUB-Q Not Given ACHS [facility] Protocol Insulin Human Lispro 15 unit 04/07/19 08:30 04/09/19 08:33 Humalog SUB-Q Not Given ACHS [facility] Protocol Ondansetron HCl 4 mg 04/05/19 01:40 04/09/19 07:59 Zofran IV 4 mg Q6H PRN Administration Nausea And Vomiting Sodium Chloride 10 ml 04/05/19 10:00 04/08/19 22:12 Sodium Chloride Flush Syringe 10 Ml IV 10 ml BID BA Administration Sodium Chloride 10 ml 04/05/19 01:40 Sodium Chloride Flush Syringe 10 Ml IV PRN PRN LINE FLUSH
[2019-04-09] MEDS: cefTRIAXone/NS 2 GM/100 ML 2 GM/100 ML BAG IV SCH (12:11)
[2019-04-09] MEDS ORDERED: ALTEPLASE 2 MG INJ IV ONE (12:30)
[2019-04-09] MEDS ORDERED: WATER FOR INJ Sterile (PF) 10 ML ONE (13:26)
--- NOTE | 2019-04-09 16:17 | Progress Note ---
Assessment and Plan Cultures: 04/04/2019 blood culture:no growth today OR culture 04/07/2019 group B Strep MRSA screening negative Previous chart and cultures reviewed, left foot wound had grown skin adithya. A/P: 33-year-old female with diabetes mellitus type 2, morbid obesity, prior admission for left foot cellulitis in 04/2018 requiring s/p excisional debridement of wound and incision and drainage of left medial food abscess treated with empiric abx, then apparently had a relapse requiring additional surgery and prolonged wound care at [facility] x 6 months. Got skin graft placed and the wound was completely healed. Now with: 1) Left diabetic foot infection with osteomyelitis and abscess: MRI shows deep ulcer along the plantar/lateral aspect of the forefoot laterally with underlying advanced cellulitis and associated predominantly dorsal serpiginous soft tissue abscess. In addition, there is osteomyelitis throughout the fifth toe phalanges and, to a lesser degree, within the fifth metatarsal head. Art doppler shows abnormal waveforms on the left. S/p I+D on the left foot on 04/07 wound culture + group B Strep. S/p angiography with findings of posterior tibial artery 30-50% narrowing at the level of the distal calf which could be part of a standing wave/spasm which resolved with nitroglycerin injection consistent with spasm. Seen by Dr Neal considering amputation. 2) Diabetes mellitus type 2, uncontrolled: Recommend tight glycemic control. 3) Hyponatremia 4) Obesity Recs: patient is considering left 5th toe amputation Stop flagyl continue ceftriaxone 2 gm IV q day Tight glycemic control At discharge will do ceftriaxone 2 gm IV q day for 6 weeks until 05/20/2019 IF METATARSAL HEAD IS NOT AMPUTATED. IF METATARSAL HEAD IS AMPUTATED 2 WEEKS OF IV ABX IS ENOUGH. Order sent to corrections caseworker She has a PICC Will follow. Keshia English MD Infectious Diseases Manager Technical Services [facility] M [phone] O [phone] Subjective Date of service: 04/09/19 Principal diagnosis: left foot diabetic ulcer Interval history: Patient feels ok, no fever. Pain is better. Went to the OR yesterday. Objective - Exam Narrative Exam: General appearance: Alert in NAD Eyes: anicteric sclerae, moist conjunctivae; no lid-lag; PERRLA HENT: Atraumatic; oropharynx clear with moist mucous membranes and no mucosal ulcerations/no oral thrush; normal hard and soft palate. Lungs: CTA, with normal respiratory effort and no intercostal retractions CV: RRR no murmur Abdomen: Soft, non-tender; no masses or hepatosplenomegaly Extremities: +left foot edema with 5th mt wound with dressings Skin: No rash. Psych: Appropriate affect, alert and oriented to person, place and time. Neuro: alert and oriented x 3. Moving all extermities - Constitutional Vitals: Vital Signs Temp Pulse Resp BP Pulse Ox 97.8 F 88 15 129/86 97 04/09/19 11:47 04/09/19 11:47 04/09/19 11:47 04/09/19 11:47 04/09/19 11:47 Temperature -Last 24 Hours Temperature 97.8 F Temperature 98.5 F Temperature 98.7 F Temperature 98.7 F - Labs CBC & Chem 7: 04/08/19 06:45 04/08/19 06:45 Labs: Abnormal lab results 04/08/19 04/08/19 04/09/19 Range/Units 17:00 21:27 07:13 POC Glucose 201 H 249 H 244 H (70-105) 04/09/19 Range/Units 12:04 POC Glucose 290 H (70-105)
[2019-04-09] MEDS: ENOXAPARIN 40 MG/0.4 ML INJ SUB-Q SCH (22:13)
[2019-04-10] MEDS: INSULIN LISPRO 100 UNIT/ML SUB-Q SCH ×8 (00:07→22:09)
[2019-04-10] MEDS: MICONAZOLE NITRATE 100 MG VG SCH ×2 (00:13→22:18)
[2019-04-10] MEDS: SODIUM CHLORIDE 0.9% 1000 ML 1,000 ML IV SCH ×2 (00:16→17:06)
[2019-04-10] MEDS: metroNIDAZOLE/NS 500 MG/100 ML 500 MG/100 ML BAG IV SCH ×2 (00:23→08:57)
[2019-04-10] MEDS ORDERED: INSULIN GLARGINE 100 UNITS/ML SUB-Q SCH (08:00)
--- NOTE | 2019-04-10 08:21 | Progress Note ---
Assessment and Plan Assessment and plan: 32-year-old -Cam[place] female with past medical history significant for morbid obesity, uncontrolled diabetes mellitus presented to the emergency department with complaints of left lower extremity pain, and discharge for the last 3-4 days sepsis due to Osteomyelitis and abscess of the left 5th toe, cellulitis and abscess of Left foot - Patient is on IV antibiotics - ID consult appreciated -sp Gen. surgery and and wound debridement 04/07 -Dr Neal to amputate 5th toe 04/10 -angiogram LE was wnl, dw dr Greenberg Uncontrolled diabetes mellitus - Hemoglobin A1c is 13.5, continue insulins, increase dose and add metformin Morbid obesity -Patient was extensively counseled about diet and exercise to lose weight Nonadherence, consulted Grief, counseled DVT prophylaxis Disposition Continue inpatient care History Interval history: Patient was seen and evaluated this morning, patient didn't have any new complaints. still has pain, swelling and drainage from left foot, but is in good spirits Hospitalist Physical - Physical exam Narrative exam: Not in cardiopulmonary distress. The patient appeared well nourished and normally developed. Vital signs as documented. Head exam is unremarkable. No scleral icterus . Neck is without jugular venous distension, thyromegaly, or carotid bruits. Lungs are clear to auscultation. Cardiac exam reveals regular rate and Rhythm. First and second heart sounds normal. No murmurs, rubs or gallops. Abdominal exam reveals normal bowel sounds, no masses, no organomegaly and no aortic enlargement. Extremities clean dressing on the left lower foot. LOAN COLLECTOR: Alert and oriented 3. No focal weakness. Hospitalist Physical - Constitutional Vitals: Temp Pulse Resp BP Pulse Ox 99.1 F 88 18 114/66 97 04/10/19 05:44 04/10/19 05:44 04/10/19 05:44 04/10/19 05:44 04/10/19 05:44 General appearance: Present: no acute distress Results - Labs CBC & Chem 7: 04/08/19 06:45 04/08/19 06:45 Labs: Laboratory Last Values WBC 12.7 K/mm3 (4.5-11.0) H 04/08/19 06:45 RBC 3.72 M/mm3 (3.65-5.03) 04/08/19 06:45 Hgb 10.5 gm/dl (10.1-14.3) 04/08/19 06:45 Hct 32.1 % (30.3-42.9) 04/08/19 06:45 MCV 86 fl (79-97) 04/08/19 06:45 MCH 28 pg (28-32) 04/08/19 06:45 MCHC 33 % (30-34) 04/08/19 06:45 RDW 12.9 % (13.2-15.2) L 04/08/19 06:45 Plt Count 419 K/mm3 (140-440) 04/08/19 06:45 Lymph % (Auto) 19.2 % (13.4-35.0) 04/08/19 06:45 [place] % (Auto) 6.2 % (0.0-7.3) 04/08/19 06:45 Eos % (Auto) 0.8 % (0.0-4.3) 04/08/19 06:45 Baso % (Auto) 0.7 % (0.0-1.8) 04/08/19 06:45 Lymph # 2.4 K/mm3 (1.2-5.4) 04/08/19 06:45 [place] # 0.8 K/mm3 (0.0-0.8) 04/08/19 06:45 Eos # 0.1 K/mm3 (0.0-0.4) 04/08/19 06:45 Baso # 0.1 K/mm3 (0.0-0.1) 04/08/19 06:45 Seg Neutrophils % 73.1 % (40.0-70.0) H 04/08/19 06:45 Seg Neutrophils # 9.3 K/mm3 (1.8-7.7) H 04/08/19 06:45 ESR 88 mm/Hr (0-20) 04/04/19 23:14 PT 13.2 Sec. (12.2-14.9) 04/09/19 09:45 INR 1.03 (0.87-1.13) 04/09/19 09:45 APTT 30.8 Sec. (24.2-36.6) 04/09/19 09:45 VBG pH 7.354 (7.320-7.420) 04/04/19 23:49 Sodium 135 mmol/L (137-145) L 04/08/19 06:45 Potassium 3.8 mmol/L (3.6-5.0) 04/08/19 06:45 Chloride 101.0 mmol/L (98-107) 04/08/19 06:45 Carbon Dioxide 20 mmol/L (22-30) L 04/08/19 06:45 Anion Gap 18 mmol/L 04/08/19 06:45 BUN 8 mg/dL (7-17) 04/08/19 06:45 Creatinine 0.6 mg/dL (0.7-1.2) L 04/08/19 06:45 Estimated GFR > 60 ml/min 04/08/19 06:45 BUN/Creatinine Ratio 13 % 04/08/19 06:45 Glucose 316 mg/dL (65-100) H 04/08/19 06:45 POC Glucose 241 (70-105) H 04/10/19 07:43 Hemoglobin A1c 13.5 % (4-6) H 04/05/19 02:23 Lactic Acid 1.50 mmol/L (0.7-2.0) 04/05/19 02:23 Calcium 8.3 mg/dL (8.4-10.2) L 04/08/19 06:45 Magnesium 1.90 mg/dL (1.7-2.3) 04/04/19 23:49 Total Bilirubin 0.40 mg/dL (0.1-1.2) 04/04/19 23:14 AST 11 units/L (5-40) 04/04/19 23:14 ALT 11 units/L (7-56) 04/04/19 23:14 Alkaline Phosphatase 157 units/L (35-129) H 04/04/19 23:14 Total Creatine Kinase 67 units/L (30-135) 04/04/19 23:49 C-Reactive Protein 16.10 mg/dL (0.00-1.30) H 04/04/19 23:49 Total Protein 8.8 g/dL (6.3-8.2) H 04/04/19 23:14 Albumin 3.9 g/dL (3.9-5) 04/04/19 23:14 Albumin/Globulin Ratio 0.8 % 04/04/19 23:14 HCG, Qual Negative (Negative) 04/04/19 23:22 Urine Color Yellow (Yellow) 04/04/19 12:05 Urine Turbidity Slightly-cloudy (Clear) 04/04/19 12:05 Urine pH 6.0 (5.0-7.0) 04/04/19 12:05 Ur Specific [place] 1.028 (1.003-1.030) 04/04/19 12:05 Urine Protein <15 mg/dl mg/dL (Negative) 04/04/19 12:05 Urine Glucose (UA) >=500 mg/dL (Negative) 04/04/19 12:05 Urine Ketones Tr mg/dL (Negative) 04/04/19 12:05 Urine Blood Sm (Negative) 04/04/19 12:05 Urine Nitrite Neg (Negative) 04/04/19 12:05 Urine Bilirubin Neg (Negative) 04/04/19 12:05 Urine Urobilinogen < 2.0 mg/dL (<2.0) 04/04/19 12:05 Ur Leukocyte Esterase Lg (Negative) 04/04/19 12:05 Urine WBC (Auto) 46.0 /HPF (0.0-6.0) H 04/04/19 12:05 Urine RBC (Auto) 12.0 /HPF (0.0-6.0) 04/04/19 12:05 U Epithel Cells (Auto) 19.0 /HPF (0-13.0) H 04/04/19 12:05 Urine Bacteria (Auto) 1+ /HPF (Negative) 04/04/19 12:05 Vancomycin Trough 8.9 ug/mL (5.0-20.0) 04/07/19 13:34 Active Medications - Current Medications Current Medications: Generic Name Dose Route Start Last Admin Trade Name Freq PRN Reason Stop Dose Admin Acetaminophen 650 mg 04/05/19 01:40 04/09/19 12:10 Tylenol PO 650 mg Q4H PRN Administration Pain MILD(1-3)/Fever >100.5/[place] Acetaminophen/Hydrocodone Bitart 2 each 04/05/19 01:40 04/08/19 13:06 [place] 5/325 PO 2 each Q6H PRN Administration Pain, Moderate (4-6) Dextrose 50 ml 04/05/19 01:40 D50w (25gm) Syringe IV PRN PRN Hypoglycemia Enoxaparin Sodium 40 mg 04/05/19 22:00 04/09/19 22:13 Lovenox SUB-Q Not Given QDAY@2200 [facility] Sodium Chloride 1,000 mls @ 100 mls/hr 04/05/19 02:00 04/10/19 00:16 Nacl 0.9% 1000 Ml IV 100 mls/hr DIRECT BA Administration Metronidazole 500 mg in 100 mls @ 100 mls/hr 04/08/19 16:00 04/10/19 00:23 Flagyl 500 Mg/100 Ml IV 100 mls/hr Q8HR@0000,0800,1600 [facility] Administration Protocol Ceftriaxone Sodium 2 gm in 100 mls @ 200 mls/hr 04/09/19 11:00 04/09/19 12:11 Rocephin/Ns 2 Gm/100 Ml IV 05/20/19 10:29 200 mls/hr Q24HR [facility] Administration Insulin Glargine 40 units 04/10/19 08:00 Lantus SUB-Q QAMDIAB [facility] Insulin Human Lispro 0 unit 04/05/19 07:30 04/10/19 00:07 Humalog SUB-Q 4 unit ACHS [facility] Administration Protocol Insulin Human Lispro 17 unit 04/10/19 07:30 Humalog SUB-Q AC [facility] Protocol Metformin HCl 500 mg 04/10/19 08:00 Glucophage Xr PO QDDIAB [facility] Miconazole 100 mg 04/09/19 22:00 04/10/19 00:13 Monistat VG 04/15/19 22:01 Not Given QHS [facility] Ondansetron HCl 4 mg 04/05/19 01:40 04/09/19 07:59 Zofran IV 4 mg Q6H PRN Administration Nausea And Vomiting Sodium Chloride 10 ml 04/05/19 10:00 04/09/19 22:12 Sodium Chloride Flush Syringe 10 Ml IV 10 ml BID BA Administration Sodium Chloride 10 ml 04/05/19 01:40 Sodium Chloride Flush Syringe 10 Ml IV PRN PRN LINE FLUSH
[2019-04-10] MEDS: metFORMIN XR 500MG TAB PO SCH (09:52)
[2019-04-10] MEDS: cefTRIAXone/NS 2 GM/100 ML 2 GM/100 ML BAG IV SCH (09:59)
[2019-04-10] MEDS ORDERED: INSULIN GLARGINE 100 UNITS/ML SUB-Q ONE (10:40)
--- NOTE | 2019-04-10 11:21 | Progress Note ---
Assessment and Plan Cultures: 04/04/2019 blood culture:no growth today OR culture 04/07/2019 group B Strep MRSA screening negative Previous chart and cultures reviewed, left foot wound had grown skin adithya. A/P: 33-year-old female with diabetes mellitus type 2, morbid obesity, prior admission for left foot cellulitis in 04/2018 requiring s/p excisional debridement of wound and incision and drainage of left medial food abscess treated with empiric abx, then apparently had a relapse requiring additional surgery and prolonged wound care at [facility] x 6 months. Got skin graft placed and the wound was completely healed. Now with: 1) Left diabetic foot infection with osteomyelitis and abscess: MRI shows deep ulcer along the plantar/lateral aspect of the forefoot laterally with underlying advanced cellulitis and associated predominantly dorsal serpiginous soft tissue abscess. In addition, there is osteomyelitis throughout the fifth toe phalanges and, to a lesser degree, within the fifth metatarsal head. Art doppler shows abnormal waveforms on the left. S/p I+D on the left foot on 04/07 wound culture + group B Strep. S/p angiography with findings of posterior tibial artery 30-50% narrowing at the level of the distal calf which could be part of a standing wave/spasm which resolved with nitroglycerin injection consistent with spasm. 2) Diabetes mellitus type 2, uncontrolled: Recommend tight glycemic control. 3) Hyponatremia 4) Obesity Recs: patient to have left 5th toe amputation continue ceftriaxone 2 gm IV q day Tight glycemic control At discharge will do ceftriaxone 2 gm IV q day for 6 weeks until 05/20/2019 IF METATARSAL HEAD IS NOT AMPUTATED. IF METATARSAL HEAD IS AMPUTATED 2 WEEKS OF IV ABX IS ENOUGH. Order sent to senior case manager She has a PICC Will follow. Keshia English MD Infectious Diseases Deicer Kit Assembler [facility] M [phone] O [phone] Subjective Date of service: 04/10/19 Principal diagnosis: left foot diabetic ulcer Interval history: Patient feels ok, no fever. Objective - Exam Narrative Exam: General appearance: Alert in NAD Eyes: anicteric sclerae, moist conjunctivae; no lid-lag; PERRLA HENT: Atraumatic; oropharynx clear with moist mucous membranes and no mucosal ulcerations/no oral thrush; normal hard and soft palate. Lungs: CTA, with normal respiratory effort and no intercostal retractions CV: RRR no murmur Abdomen: Soft, non-tender; no masses or hepatosplenomegaly Extremities: +left foot edema with 5th mt wound with dressings Skin: No rash. Psych: Appropriate affect, alert and oriented to person, place and time. Neuro: alert and oriented x 3. Moving all extermities - Constitutional Vitals: Vital Signs Temp Pulse Resp BP Pulse Ox 99.1 F 88 18 114/66 97 04/10/19 05:44 04/10/19 05:44 04/10/19 05:44 04/10/19 05:44 04/10/19 05:44 Temperature -Last 24 Hours Temperature 99.1 F Temperature 98.8 F Temperature 97.5 F Temperature 97.8 F - Labs CBC & Chem 7: 04/08/19 06:45 04/08/19 06:45 Labs: Abnormal lab results 04/09/19 04/09/19 04/09/19 Range/Units 12:04 16:53 22:11 POC Glucose 290 H 278 H 248 H (70-105) 04/10/19 Range/Units 07:43 POC Glucose 241 H (70-105)
--- NOTE | 2019-04-10 15:17 | Progress Note ---
Assessment and Plan - Patient Problems (1) Osteomyelitis of left foot Current Visit: Yes Status: Acute Plan to address problem: 1) Pt is an add on and there are still many cases left to do today. It is 3:16 pm. OR offered a 12:00- 1:00 pm start time tomorrow and I will post-pone surgery until then. 2) Diabetic diet now 3) NPO after MN Subjective Date of service: 04/10/19 Patient Reports: Positive: no new complaints Objective Vital Signs - 12hr 04/10/19 04/10/19 05:44 11:24 Temperature 99.1 F 98.6 F Pulse Rate 88 85 Respiratory 18 16 Rate Blood Pressure 114/66 113/71 O2 Sat by Pulse 97 97 Oximetry - Labs 04/08/19 06:45 04/08/19 06:45
[2019-04-10] MEDS: ENOXAPARIN 40 MG/0.4 ML INJ SUB-Q SCH ×2 (22:09→22:18)
[2019-04-10] MEDS: INSULIN GLARGINE 100 UNITS/ML SUB-Q SCH (22:15)
[2019-04-10] MEDS: HYDROcodone/ACETAMINOPHEN 5-325 MG TAB PO PRN (22:20)
[2019-04-11] MEDS: SODIUM CHLORIDE 0.9% 1000 ML 1,000 ML IV SCH (05:45)
--- NOTE | 2019-04-11 07:58 | Progress Note ---
Assessment and Plan Assessment and plan: 32-year-old -Greenlandic female with past medical history significant for morbid obesity, uncontrolled diabetes mellitus presented to the emergency department with complaints of left lower extremity pain, and discharge for the last 3-4 days sepsis due to Osteomyelitis and abscess of the left 5th toe, cellulitis and abscess of Left foot - Patient is on IV antibiotics - ID consult appreciated -sp Gen. surgery and and wound debridement 04/07 -Dr Neal to amputate 5th toe 04/10 -angiogram LE was wnl, dw dr Greenberg Uncontrolled diabetes mellitus - Hemoglobin A1c is 13.5, continue insulins, increase dose and add metformin Morbid obesity -Patient was extensively counseled about diet and exercise to lose weight Nonadherence, consulted Grief, counseled DVT prophylaxis Disposition Continue inpatient care History Interval history: Patient was seen and evaluated this morning, patient didn't have any new complaints. still has pain, swelling and drainage from left foot, but is in good spirits Hospitalist Physical - Physical exam Narrative exam: Not in cardiopulmonary distress. The patient appeared well nourished and normally developed. Vital signs as documented. Head exam is unremarkable. No scleral icterus . Neck is without jugular venous distension, thyromegaly, or carotid bruits. Lungs are clear to auscultation. Cardiac exam reveals regular rate and Rhythm. First and second heart sounds normal. No murmurs, rubs or gallops. Abdominal exam reveals normal bowel sounds, no masses, no organomegaly and no aortic enlargement. Extremities clean dressing on the left lower foot. ADULT CROSSING GUARD: Alert and oriented 3. No focal weakness. Hospitalist Physical - Constitutional Vitals: Temp Pulse Resp BP Pulse Ox 98.1 F 86 20 132/89 99 04/11/19 05:22 04/11/19 05:22 04/11/19 05:22 04/11/19 05:22 04/11/19 05:22 General appearance: Present: no acute distress Results - Labs CBC & Chem 7: 04/08/19 06:45 04/08/19 06:45 Labs: Laboratory Last Values WBC 12.7 K/mm3 (4.5-11.0) H 04/08/19 06:45 RBC 3.72 M/mm3 (3.65-5.03) 04/08/19 06:45 Hgb 10.5 gm/dl (10.1-14.3) 04/08/19 06:45 Hct 32.1 % (30.3-42.9) 04/08/19 06:45 MCV 86 fl (79-97) 04/08/19 06:45 MCH 28 pg (28-32) 04/08/19 06:45 MCHC 33 % (30-34) 04/08/19 06:45 RDW 12.9 % (13.2-15.2) L 04/08/19 06:45 Plt Count 419 K/mm3 (140-440) 04/08/19 06:45 Lymph % (Auto) 19.2 % (13.4-35.0) 04/08/19 06:45 [place] % (Auto) 6.2 % (0.0-7.3) 04/08/19 06:45 Eos % (Auto) 0.8 % (0.0-4.3) 04/08/19 06:45 Baso % (Auto) 0.7 % (0.0-1.8) 04/08/19 06:45 Lymph # 2.4 K/mm3 (1.2-5.4) 04/08/19 06:45 [place] # 0.8 K/mm3 (0.0-0.8) 04/08/19 06:45 Eos # 0.1 K/mm3 (0.0-0.4) 04/08/19 06:45 Baso # 0.1 K/mm3 (0.0-0.1) 04/08/19 06:45 Seg Neutrophils % 73.1 % (40.0-70.0) H 04/08/19 06:45 Seg Neutrophils # 9.3 K/mm3 (1.8-7.7) H 04/08/19 06:45 ESR 88 mm/Hr (0-20) 04/04/19 23:14 PT 13.2 Sec. (12.2-14.9) 04/09/19 09:45 INR 1.03 (0.87-1.13) 04/09/19 09:45 APTT 30.8 Sec. (24.2-36.6) 04/09/19 09:45 VBG pH 7.354 (7.320-7.420) 04/04/19 23:49 Sodium 135 mmol/L (137-145) L 04/08/19 06:45 Potassium 3.8 mmol/L (3.6-5.0) 04/08/19 06:45 Chloride 101.0 mmol/L (98-107) 04/08/19 06:45 Carbon Dioxide 20 mmol/L (22-30) L 04/08/19 06:45 Anion Gap 18 mmol/L 04/08/19 06:45 BUN 8 mg/dL (7-17) 04/08/19 06:45 Creatinine 0.6 mg/dL (0.7-1.2) L 04/08/19 06:45 Estimated GFR > 60 ml/min 04/08/19 06:45 BUN/Creatinine Ratio 13 % 04/08/19 06:45 Glucose 316 mg/dL (65-100) H 04/08/19 06:45 POC Glucose 277 (70-105) H 04/10/19 21:39 Hemoglobin A1c 13.5 % (4-6) H 04/05/19 02:23 Lactic Acid 1.50 mmol/L (0.7-2.0) 04/05/19 02:23 Calcium 8.3 mg/dL (8.4-10.2) L 04/08/19 06:45 Magnesium 1.90 mg/dL (1.7-2.3) 04/04/19 23:49 Total Bilirubin 0.40 mg/dL (0.1-1.2) 04/04/19 23:14 AST 11 units/L (5-40) 04/04/19 23:14 ALT 11 units/L (7-56) 04/04/19 23:14 Alkaline Phosphatase 157 units/L (35-129) H 04/04/19 23:14 Total Creatine Kinase 67 units/L (30-135) 04/04/19 23:49 C-Reactive Protein 16.10 mg/dL (0.00-1.30) H 04/04/19 23:49 Total Protein 8.8 g/dL (6.3-8.2) H 04/04/19 23:14 Albumin 3.9 g/dL (3.9-5) 04/04/19 23:14 Albumin/Globulin Ratio 0.8 % 04/04/19 23:14 HCG, Qual Negative (Negative) 04/04/19 23:22 Urine Color Yellow (Yellow) 04/04/19 12:05 Urine Turbidity Slightly-cloudy (Clear) 04/04/19 12:05 Urine pH 6.0 (5.0-7.0) 04/04/19 12:05 Ur Specific [place] 1.028 (1.003-1.030) 04/04/19 12:05 Urine Protein <15 mg/dl mg/dL (Negative) 04/04/19 12:05 Urine Glucose (UA) >=500 mg/dL (Negative) 04/04/19 12:05 Urine Ketones Tr mg/dL (Negative) 04/04/19 12:05 Urine Blood Sm (Negative) 04/04/19 12:05 Urine Nitrite Neg (Negative) 04/04/19 12:05 Urine Bilirubin Neg (Negative) 04/04/19 12:05 Urine Urobilinogen < 2.0 mg/dL (<2.0) 04/04/19 12:05 Ur Leukocyte Esterase Lg (Negative) 04/04/19 12:05 Urine WBC (Auto) 46.0 /HPF (0.0-6.0) H 04/04/19 12:05 Urine RBC (Auto) 12.0 /HPF (0.0-6.0) 04/04/19 12:05 U Epithel Cells (Auto) 19.0 /HPF (0-13.0) H 04/04/19 12:05 Urine Bacteria (Auto) 1+ /HPF (Negative) 04/04/19 12:05 Vancomycin Trough 8.9 ug/mL (5.0-20.0) 04/07/19 13:34 Active Medications - Current Medications Current Medications: Generic Name Dose Route Start Last Admin Trade Name Freq PRN Reason Stop Dose Admin Acetaminophen 650 mg 04/05/19 01:40 04/09/19 12:10 Tylenol PO 650 mg Q4H PRN Administration Pain MILD(1-3)/Fever >100.5/ANDERSON Acetaminophen/Hydrocodone Bitart 2 each 04/05/19 01:40 04/10/19 22:20 [place] 5/325 PO 2 each Q6H PRN Administration Pain, Moderate (4-6) Dextrose 50 ml 04/05/19 01:40 D50w (25gm) Syringe IV PRN PRN Hypoglycemia Enoxaparin Sodium 40 mg 04/05/19 22:00 04/10/19 22:18 Lovenox SUB-Q Not Given QDAY@2200 BA Sodium Chloride 1,000 mls @ 100 mls/hr 04/05/19 02:00 04/11/19 05:45 Nacl 0.9% 1000 Ml IV 100 mls/hr DIRECT BA Administration Ceftriaxone Sodium 2 gm in 100 mls @ 200 mls/hr 04/09/19 11:00 04/10/19 09:59 Rocephin/Ns 2 Gm/100 Ml IV 200 mls/hr Q24HR BA Administration Insulin Glargine 20 units 04/10/19 22:00 04/10/19 22:15 Lantus SUB-Q 20 units BID BA Administration Insulin Human Lispro 0 unit 04/05/19 07:30 04/10/19 22:09 Humalog SUB-Q 6 unit ACHS BA Administration Protocol Insulin Human Lispro 17 unit 04/10/19 07:30 04/10/19 17:05 Humalog SUB-Q 17 unit AC BA Administration Protocol Metformin HCl 500 mg 04/10/19 08:00 04/10/19 09:52 Glucophage Xr PO Not Given QDDIAB BA Miconazole 100 mg 04/09/19 22:00 04/10/19 22:18 Monistat VG 04/15/19 22:01 Not Given QHS BA Ondansetron HCl 4 mg 04/05/19 01:40 04/09/19 07:59 Zofran IV 4 mg Q6H PRN Administration Nausea And Vomiting Sodium Chloride 10 ml 04/05/19 10:00 04/10/19 22:16 Sodium Chloride Flush Syringe 10 Ml IV 10 ml BID BA Administration Sodium Chloride 10 ml 04/05/19 01:40 Sodium Chloride Flush Syringe 10 Ml IV PRN PRN LINE FLUSH
[2019-04-11] MEDS: INSULIN LISPRO 100 UNIT/ML SUB-Q SCH ×7 (08:19→22:51)
[2019-04-11] MEDS: metFORMIN XR 500MG TAB PO SCH (08:19)
[2019-04-11] MEDS: cefTRIAXone/NS 2 GM/100 ML 2 GM/100 ML BAG IV SCH (09:25)
[2019-04-11] MEDS: INSULIN GLARGINE 100 UNITS/ML SUB-Q SCH ×2 (09:25→22:45)
--- NOTE | 2019-04-11 10:20 | Progress Note ---
Subjective Date of service: 04/11/19 Principal diagnosis: left foot diabetic ulcer Interval history: s/p Left leg diagnostic angiogram patient doing well access site soft, palpable right femoral pulse angio demonstrated intact flow to the foot without significant disease patient will likely heal any necessary foot intervention no need for further intervention from our standpoint please call for any questions/concerns Objective - Constitutional Vitals: Vital Signs - 12hr 04/10/19 04/11/19 22:20 05:22 Temperature 98.1 F Pulse Rate 86 Respiratory 18 20 Rate Blood Pressure 132/89 O2 Sat by Pulse 99 Oximetry - Labs CBC & Chem 7: 04/08/19 06:45 04/08/19 06:45 Labs: Abnormal lab results 04/10/19 04/10/19 04/10/19 Range/Units 11:31 16:34 21:39 POC Glucose 228 H 292 H 277 H (70-105) 04/11/19 Range/Units 07:59 POC Glucose 282 H (70-105) Medications & Allergies - Medications Allergies/Adverse Reactions: Allergies No Known Allergies Allergy (Verified 04/14/17 19:08) Home Medications: Home Medications Medication Instructions Recorded Confirmed Last Taken Type Lispro Insulin [HumaLOG] 0 unit SUB-Q ACHS 30 Days units 05/03/18 04/05/19 Unknown Rx Active Medications: Generic Name Dose Route Start Last Admin Trade Name Freq PRN Reason Stop Dose Admin Acetaminophen 650 mg 04/05/19 01:40 04/09/19 12:10 Tylenol PO 650 mg Q4H PRN Administration Pain MILD(1-3)/Fever >100.5/[place] Acetaminophen/Hydrocodone Bitart 2 each 04/05/19 01:40 04/10/19 22:20 [place] 5/325 PO 2 each Q6H PRN Administration Pain, Moderate (4-6) Dextrose 50 ml 04/05/19 01:40 D50w (25gm) Syringe IV PRN PRN Hypoglycemia Enoxaparin Sodium 40 mg 04/05/19 22:00 04/10/19 22:18 Lovenox SUB-Q Not Given QDAY@2200 BA Sodium Chloride 1,000 mls @ 100 mls/hr 04/05/19 02:00 04/11/19 05:45 Nacl 0.9% 1000 Ml IV 100 mls/hr DIRECT BA Administration Ceftriaxone Sodium 2 gm in 100 mls @ 200 mls/hr 04/09/19 11:00 04/11/19 09:25 Rocephin/Ns 2 Gm/100 Ml IV 200 mls/hr Q24HR BA Administration Insulin Glargine 20 units 04/10/19 22:00 04/11/19 09:25 Lantus SUB-Q Not Given BID [facility] Insulin Human Lispro 0 unit 04/05/19 07:30 04/11/19 08:19 Humalog SUB-Q 6 unit ACHS [facility] Administration Protocol Insulin Human Lispro 17 unit 04/10/19 07:30 04/11/19 09:24 Humalog SUB-Q Not Given AC [facility] Protocol Metformin HCl 500 mg 04/10/19 08:00 04/11/19 08:19 Glucophage Xr PO Not Given QDDIAB [facility] Miconazole 100 mg 04/09/19 22:00 04/10/19 22:18 Monistat VG 04/15/19 22:01 Not Given QHS [facility] Ondansetron HCl 4 mg 04/05/19 01:40 04/09/19 07:59 Zofran IV 4 mg Q6H PRN Administration Nausea And Vomiting Sodium Chloride 10 ml 04/05/19 10:00 04/11/19 09:26 Sodium Chloride Flush Syringe 10 Ml IV 10 ml BID BA Administration Sodium Chloride 10 ml 04/05/19 01:40 Sodium Chloride Flush Syringe 10 Ml IV PRN PRN LINE FLUSH
[2019-04-11] MEDS ORDERED: LIDOCAINE (1%) 10 MG/1 ML VIAL 20 ML MDV ONE (11:08)
[2019-04-11] MEDS ORDERED: BUPIVACAINE/PF (0.5%) 5 MG/1 ML 30 ML VIAL INFILTRATI ONE (11:09)
[2019-04-11] MEDS ORDERED: HEPARIN 5,000 UNIT/1 ML VIAL SUB-Q NR (11:30)
[2019-04-11] MEDS ORDERED: INSULIN REGULAR, HUMAN 100 UNITS/1 ML SUB-Q SCH (11:35)
[2019-04-11] MEDS ORDERED: HYDROmorphone 1 MG/1 ML INJ IV PRN (11:46)
--- NOTE | 2019-04-11 11:47 | Anesthesia Day of Surgery ---
Anesthesia Day of Surgery - Day of Surgery Patient Examined: Yes Patient H&P Reviewed: Yes Patient is NPO: Yes
[2019-04-11] MEDS ORDERED: MIDAZOLAM 2 MG/2 ML INJ IV NR (12:00)
[2019-04-11] MEDS ORDERED: LIDOCAINE MPF (2%) 20 MG/1 ML VIAL 5 ML ONE (12:02)
[2019-04-11] MEDS ORDERED: PROPOFOL 200 MG/20 ML VIAL IV ONE (12:03)
[2019-04-11] MEDS ORDERED: fentaNYL 100 MCG/2 ML INJ ONE (12:03)
[2019-04-11] MEDS ORDERED: SODIUM CHLORIDE 0.9% IRRIG SOLN 2000 ML IR ONE (12:45)
[2019-04-11] MEDS ORDERED: ONDANSETRON 4 MG/2 ML INJ ONE (12:48)
[2019-04-11] MEDS ORDERED: SODIUM CHLORIDE 0.9% 1000 ML 1,000 ML ONE (13:09)
--- NOTE | 2019-04-11 13:14 | Procedure Note ---
Date of procedure: 04/11/19 Pre-op diagnosis: Osteomyelitis of left 5th toe and metatarsal head Post-op diagnosis: same Procedure: TMA of left 5th toe Description of procedure: Pt was placed supine on the OR table. General anesthesia was administered. Left foot was prepped and draped. A tear drop incision was made about the left 5th toe. The toe was amputated at the MTP joint. Periosteum was elevated off of the distal left 5th metatarsal bone. The distal metatarsal shaft and head were amputated with a bone saw. Necrotic and infected soft tissue was excised with scissors. Hemostasis was obtained with the Bovie. Wound was irrigated and was packed open with a dilute Betadine moistened Kerlix roll followed by a dry Kerlix roll about the foot and ankle. Pt tolerated the procedure well. She was taken to PACU in stable condition. Anesthesia: other (LMA) Surgeon: MOE WHITTINGTON Estimated blood loss: minimal Pathology: list (left 5th toe and metatarsal head) Specimen disposition: to lab Condition: stable Disposition: PACU
[2019-04-11] MEDS: HYDROcodone/ACETAMINOPHEN 5-325 MG TAB PO PRN (22:47)
[2019-04-11] MEDS: ENOXAPARIN 40 MG/0.4 ML INJ SUB-Q SCH (22:52)
[2019-04-11] MEDS: MICONAZOLE NITRATE 100 MG VG SCH (22:53)
[2019-04-12] MEDS: INSULIN GLARGINE 100 UNITS/ML SUB-Q SCH (09:01)
[2019-04-12] MEDS: INSULIN LISPRO 100 UNIT/ML SUB-Q SCH ×6 (09:01→18:01)
[2019-04-12] MEDS: metFORMIN XR 500MG TAB PO SCH (09:02)
[2019-04-12] MEDS: cefTRIAXone/NS 2 GM/100 ML 2 GM/100 ML BAG IV SCH (09:38)
--- NOTE | 2019-04-12 10:24 | Discharge Summary ---
Providers - Providers Date of Admission: 04/05/19 02:16 Attending physician: LEMUEL SOMERS MD 04/05/19 00:23 Consult to Physician [CONS] Urgent Comment: Consulting Provider: ALE RAVI Physician Instructions: Reason For Exam: infected foot 04/05/19 01:40 Consult to Physician [CONS] Routine Comment: Consulting Provider: KESHIA WOODY Physician Instructions: Reason For Exam: diabetic foot infection 04/05/19 01:49 Consult to Wound/ET Nurse [CONS] Routine Reason For Exam: wound eval 04/06/19 08:22 Consult to Physician [CONS] Routine Comment: Consulting Provider: DUSTY BACA Physician Instructions: Reason For Exam: abscess and osteomyelitis in the left foot 04/06/19 13:32 PICC Line Insertion [Consult to PICC Line RN] [CONS] Routine Reason For Exam: for shelter iv antibiotic Type Line:: PICC 04/07/19 13:20 Consult to Physician [CONS] Routine Comment: Consulting Provider: MOE NEAL Physician Instructions: Reason For Exam: please evaluate L 5th toe for potential amputation 04/08/19 13:22 Consult to Case Management [CONS] Stat Services Needed at Discharge: 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 Remove PICC line after last dose unless otherwise instructed. Line: Maintain IV access with weekly dressing changes and locks per protocol. Labs: Every Monday CBC, AST, ALT, Creatinine. Please fax results to [phone] and call [phone] for critical lab results. Keshia Ovalle MD Infectious Diseases Guide Rail Cleaner [facility] ([facility]) O: [phone] F: [phone] 04/08/19 15:08 Consult to Physician [CONS] Routine Comment: Consulting Provider: CARLOS A CHURCH Physician Instructions: Reason For Exam: PAD, dm, with LLE diabetic wound/Osteomylitis Primary care physician: SHUTTLE REPAIRER Hospitalization Condition: Serious Hospital course: 32-year-old -Nigerien female with past medical history significant for morbid obesity, uncontrolled diabetes mellitus presented to the emergency department with complaints of left lower extremity pain, and discharge for the last 3-4 days sepsis due to Osteomyelitis and abscess of the left 5th toe, cellulitis and abscess of Left foot - Patient is on IV antibiotics, being dc on IV abx x2 weeks - ID consult appreciated -sp Gen. surgery and and wound debridement 04/07 -Status post left fifth toe amputation on 04/[address] Neal -angiogram LE was wnl, dw dr Church Uncontrolled diabetes mellitus - Hemoglobin A1c is 13.5, continue insulins, increase dose and add metformin Morbid obesity -Patient was extensively counseled about diet and exercise to lose weight Nonadherence, counseled Grief, counseled DVT prophylaxis Disposition Continue inpatient care preventative health counseling performed for 17 minutes At discharge will do ceftriaxone 2 gm IV q day for 2 weeks Disposition: DC-01 TO HOME OR SELFCARE Time spent for discharge: 33 mins Core Measure Documentation - Palliative Care Palliative Care/ Comfort Measures: Not Applicable - Core Measures Any of the following diagnoses?: none Exam - Constitutional Vitals: Temp Pulse Resp BP Pulse Ox 98.5 F 85 18 117/78 97 04/12/19 06:16 04/12/19 06:16 04/12/19 06:16 04/12/19 06:16 04/12/19 06:16 General appearance: Present: no acute distress, well-nourished - EENT Eyes: Present: PERRL ENT: hearing intact, clear oral mucosa - Neck Neck: Present: supple, normal ROM - Respiratory Respiratory effort: normal Respiratory: bilateral: CTA - Cardiovascular Heart Sounds: Present: S1 & S2. Absent: rub, click - Extremities Extremities: pulses symmetrical, No edema, abnormal (left foot dressing not removed) Peripheral Pulses: within normal limits - Abdominal General gastrointestinal: Present: soft, non-tender, non-distended, normal bowel sounds Female genitourinary: Present: normal - Integumentary Integumentary: Present: clear, warm, dry - Musculoskeletal Musculoskeletal: gait normal, strength equal bilaterally - Psychiatric Psychiatric: appropriate mood/affect, intact judgment & insight - Neurologic Neurologic: CNII-XII intact, moves all extremities Plan Follow up with: PRIMARY CARE,MD [Primary Care Provider] - 3-5 Days Prescriptions: metFORMIN XR [Glucophage XR] 500 mg PO QDDIAB #60 tablet Lispro Insulin [HumaLOG] 17 unit SUB-Q AC #1 vial Insulin Glargine [Lantus VIAL] 40 units SUB-Q HS #1 vial HYDROcodone/APAP 5-325 [[place] 5-325 mg TAB] 2 each PO Q6H PRN #30 tablet PRN Reason: Pain, Moderate (4-6)
[2019-04-12 12:56] VITALS: BP 106/65
--- NOTE | 2019-04-12 13:02 | Progress Note ---
Assessment and Plan Cultures: 04/04/2019 blood culture:no growth today OR culture 04/07/2019 group B Strep MRSA screening negative Previous chart and cultures reviewed, left foot wound had grown skin adithya. A/P: 33-year-old female with diabetes mellitus type 2, morbid obesity, prior admission for left foot cellulitis in 04/2018 requiring s/p excisional debridement of wound and incision and drainage of left medial food abscess treated with empiric abx, then apparently had a relapse requiring additional surgery and prolonged wound care at [facility] x 6 months. Got skin graft placed and the wound was completely healed. Now with: 1) Left diabetic foot infection with osteomyelitis and abscess: MRI shows deep ulcer along the plantar/lateral aspect of the forefoot laterally with underlying advanced cellulitis and associated predominantly dorsal serpiginous soft tissue abscess. In addition, there is osteomyelitis throughout the fifth toe phalanges and, to a lesser degree, within the fifth metatarsal head. Art doppler shows abnormal waveforms on the left. S/p I+D on the left foot on 04/07 wound culture + group B Strep. S/p angiography with findings of posterior tibial artery 30-50% narrowing at the level of the distal calf which could be part of a standing wave/spasm which resolved with nitroglycerin injection consistent with spasm. S/p toe was amputated at the MTP joint and distal metatarsal shaft and head were amputated on 04/11. 2) Diabetes mellitus type 2, uncontrolled: Recommend tight glycemic control. 3) Hyponatremia 4) Obesity Recs: patient to have left 5th toe amputation continue ceftriaxone 2 gm IV q day Tight glycemic control At discharge will do ceftriaxone 2 gm IV q day for 2 weeks until 04/25/2019 with margin path f/u, if positive osteo will extend to 6 weeks . Order sent to behavioral health case manager She has a PICC ID clinic f/u in 2 weeks Will follow. Keshia English MD Infectious Diseases Nonprofit Director [facility] [place] ([facility]) M [phone] O [phone] Subjective Date of service: 04/12/19 Principal diagnosis: left foot diabetic ulcer Interval history: Patient feels ok, no fever. Had amputation yesterday. Objective - Exam Narrative Exam: General appearance: Alert in NAD Eyes: anicteric sclerae, moist conjunctivae; no lid-lag; PERRLA HENT: Atraumatic; oropharynx clear with moist mucous membranes and no mucosal ulcerations/no oral thrush; normal hard and soft palate. Lungs: CTA, with normal respiratory effort and no intercostal retractions CV: RRR no murmur Abdomen: Soft, non-tender; no masses or hepatosplenomegaly Extremities: +left foot with surgical dressings Skin: No rash. Psych: Appropriate affect, alert and oriented to person, place and time. Neuro: alert and oriented x 3. Moving all extermities - Constitutional Vitals: Vital Signs Temp Pulse Resp BP Pulse Ox 99.6 F 97 H 18 106/65 98 04/12/19 11:31 04/12/19 11:31 04/12/19 11:31 04/12/19 11:31 04/12/19 11:31 Temperature -Last 24 Hours Temperature 99.6 F Temperature 98.5 F Temperature 98.4 F Temperature 98.8 F Temperature 98.9 F Temperature 98.1 F Temperature 97.3 F - Labs CBC & Chem 7: 04/08/19 06:45 04/08/19 06:45 Labs: Abnormal lab results 04/11/19 04/11/19 04/11/19 Range/Units 13:23 18:10 21:33 POC Glucose 248 H 265 H 196 H (70-105) 04/12/19 04/12/19 Range/Units 07:49 11:30 POC Glucose 245 H 219 H (70-105)
== END 2019-04-12 18:10 | disposition home health service (06) | DRG 854 ==
LOC: ED 22:11 → 3A 04-05 02:16
PROVIDERS: ADMIT Internal Medicine; ATTEND Internal Medicine
PROC: 0JBR0ZZ Excision of Left Foot Subcutaneous Tissue and Fascia, Open Approach (ICD-10-PCS; principal; 2019-04-07)
PROC: 05HY33Z Insertion of Infusion Device into Upper Vein, Percutaneous Approach (ICD-10-PCS; 2019-04-07)
PROC: B44LZZZ Ultrasonography of Femoral Artery (ICD-10-PCS; 2019-04-09)
PROC: B4101ZZ Fluoroscopy of Abdominal Aorta using Low Osmolar Contrast (ICD-10-PCS; 2019-04-09)
PROC: B41J1ZZ Fluoroscopy of Other Lower Arteries using Low Osmolar Contrast (ICD-10-PCS; 2019-04-09)
PROC: B41F1ZZ Fluoroscopy of Right Lower Extremity Arteries using Low Osmolar Contrast (ICD-10-PCS; 2019-04-09)
PROC: B41G1ZZ Fluoroscopy of Left Lower Extremity Arteries using Low Osmolar Contrast (ICD-10-PCS; 2019-04-09)
PROC: 0Y6N0ZF Detachment at Left Foot, Partial 5th Ray, Open Approach (ICD-10-PCS; 2019-04-11)
DX: A41.9 Sepsis, unspecified organism (principal); L02.612 Cutaneous abscess of left foot; E87.1 Hypo-osmolality and hyponatremia; Z68.41 Body mass index [BMI] 40.0-44.9, adult; M86.8X7 Other osteomyelitis, ankle and foot; E11.69 Type 2 diabetes mellitus with other specified complication; L08.9 Local infection of the skin and subcutaneous tissue, unspecified; E87.6 Hypokalemia; E11.65 Type 2 diabetes mellitus with hyperglycemia; I10 Essential (primary) hypertension; E11.621 Type 2 diabetes mellitus with foot ulcer; E66.01 Morbid (severe) obesity due to excess calories; L97.529 Non-pressure chronic ulcer of other part of left foot with unspecified severity; Z79.4 Long term (current) use of insulin; Z71.3 Dietary counseling and surveillance; Z91.14 Patient's other noncompliance with medication regimen; Z79.899 Other long term (current) drug therapy
CPT/HCPCS: 36247; 36415; 75625; 75710; 76937; 80048; 80053; 80202; 81001; 82140; 82550; 82805; 82962; 83036; 83735; 84703; 85025; 85610; 85652; 85730; 86140; 87040; 87075; 87086; 87116; 88302; 88304; 88305; 88307; 88311; 93005; 93010; 93925; 96374; G0378; A4217; A9577; C1760; C1769; C1887; J0690; J0692; J0696; J1100; J1170; J1644; J1650; J1815; J2250; J2270; J2405; J2543; J2704; J2997; J3010; J3370; J7030; J7040; Q9967

== ENCOUNTER 2019-09-12 12:19 | Inpatient (IN) | payer MEDICARE ==
[2019-09-12] MEDS ORDERED: DEXTROSE 50% IN WATER (25GM) 50 ML SYRINGE IV PRN (17:03)
[2019-09-12] MEDS ORDERED: ACETAMINOPHEN 325 MG TAB PO PRN (17:08)
[2019-09-12] MEDS ORDERED: ONDANSETRON 4 MG ODT TAB PO PRN (17:08)
[2019-09-12] MEDS ORDERED: ALBUTEROL 2.5 MG/3 ML NEBU IH PRN (17:08)
[2019-09-12] MEDS ORDERED: POLYETHYLENE GLYCOL 3350 17 GM POWDER PO PRN (17:08)
[2019-09-12] MEDS: ASCORBIC ACID 500 MG TAB PO SCH (23:51)
[2019-09-12] MEDS: metroNIDAZOLE 500 MG TAB PO SCH (23:51)
[2019-09-12] MEDS: HYDROcodone/ACETAMINOPHEN 10-325MG TAB PO PRN (23:53)
[2019-09-12] MEDS: HEPARIN 5,000 UNIT/1 ML VIAL SUB-Q SCH (23:57)
[2019-09-13] MEDS: INSULIN GLARGINE 100 UNITS/ML SUB-Q SCH ×2 (00:37→21:24)
[2019-09-13] MEDS: INSULIN LISPRO 100 UNIT/ML SUB-Q SCH ×5 (00:48→21:24)
[2019-09-13] MEDS: HYDROcodone/ACETAMINOPHEN 10-325MG TAB PO PRN ×3 (05:44→21:24)
[2019-09-13] MEDS: metroNIDAZOLE 500 MG TAB PO SCH ×4 (05:44→21:16)
[2019-09-13 06:32] LABS: Basophils % (Auto) 0.6 % (0.0-1.8); Eosinophils # (Auto) 0.4 K/mm3 (0.0-0.4); Eosinophils % (Auto) 4.5 % (0.0-4.3); Hematocrit 26.9 % (30.3-42.9); Hemoglobin 8.8 gm/dl (10.1-14.3); Lymphocytes # (Auto) 2.1 K/mm3 (1.2-5.4); Lymphocytes % (Auto) 25.1 % (13.4-35.0); Mean Corpuscular HGB Conc 33 % (30-34); Mean Corpuscular Volume 82 fl (79-97); Monocytes # (Auto) 0.9 K/mm3 (0.0-0.8); Monocytes % (Auto) 10.7 % (0.0-7.3); Platelet Count 576 K/mm3 (140-440); Red Cell Distribution Width 16.6 % (13.2-15.2)
[2019-09-13 07:00] LABS: Alanine Aminotransferase 19 units/L (7-56); Albumin 2.3 g/dL (3.9-5); BUN/Creatinine Ratio 20; Blood Urea Nitrogen 16 mg/dL (7-17); Calcium 8.7 mg/dL (8.4-10.2); Hemolysis Index 0
[2019-09-13] MEDS: ZINC SULFATE 220 MG CAP PO SCH (07:37)
[2019-09-13] MEDS: ASCORBIC ACID 500 MG TAB PO SCH ×2 (07:37→21:16)
[2019-09-13] MEDS: PANTOPRAZOLE 40 MG TAB PO SCH (07:37)
[2019-09-13] MEDS: HEPARIN 5,000 UNIT/1 ML VIAL SUB-Q SCH (07:41)
--- NOTE | 2019-09-13 11:49 | History and Physical Report ---
History of Present Illness Date: 09/13/19 Date of admission: 09/12/19 17:03 Chief Complaint: Left BKA History of present illness: 33-year-old female who presented to the ER with sepsis and shock along with a left lower extremity diabetic foot infection. She had a diabetic foot wound which was being treated with debridement and surgical intervention previously and she was currently on outpatient vancomycin via PICC line. In the past she also had a wound VAC. Wound care noticed increasing discharge from the wound and as her condition worsen she went to the ER for further evaluation she underwent conservative measures including multiple IV antibiotics for attempted salvage. Infectious disease was consulted. Ultimately she underwent a left BKA on September [address] Bryon Fried due to nonviable left lower extremity. Recommendation was to continue IV antibiotics due to severity of her infection. Gram-negative bacilli were cultured and she remains on Flagyl for 11 more days. Her diabetes is poorly controlled and hemoglobin A1c was 10.8. She also has chronic anemia with an acute exacerbation and received 1 unit of packed red blood cells on 09/04 and another unit on 09/05. Patient also experienced hyponatremia on several occasions and it appears that her baseline sodium may be around 1 32-1 33. We will continue to monitor that as well as look to possibly start fluid restrictions if needed. She also had reactive thrombocytosis which is still elevated but less than it was at the outside hospital. Greater than 38 minutes was spent reviewing all outside hospital documentation prior to admission of the patient and prior to H&P being performed. Results of the review as above and recorded elsewhere in this note. After the patient was medically stabilized they were transferred for further rehabilitation. All available medical records have been reviewed. Plan of care was discussed with patient. Of note the patient does state that her anpushield does not fit well and is hurting her. We have asked [employer] to come out and reassess for proper fit. She also stated to nursing this morning she did not want to take her heparin as this causes her to vomit. I had a long discussion with her concerning the seriousness of not taking DVT prophylaxis in her current condition and she has agreed to take Lovenox. She also endorses phantom pain which is worse at night. We spoke about gabapentin however she does not want to take that during the day due to its side effects and we will schedule this at night. 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 Patient states that this is been there for a fairly long time and tends to wax and wane in its severity. Past History Past Medical History: diabetes, other (Obesity) Past Surgical History: Other (Toe amputation) Social history: , lives with family. denies: smoking, alcohol abuse Family history: hypertension Medications and Allergies Allergies Allergy/AdvReac Type Severity Reaction Status Date / Time No Known Allergies Allergy Verified 04/14/17 19:08 Home Medications Medication Instructions Recorded Confirmed Last Taken Type HYDROcodone/APAP 5-325 [[place] 2 each PO Q6H PRN #30 tablet 04/12/19 Unknown Rx 5-325 mg TAB] Insulin Glargine [Lantus VIAL] 40 units SUB-Q HS #1 vial 04/12/19 Unknown Rx Lispro Insulin [HumaLOG] 17 unit SUB-Q AC #1 vial 04/12/19 Unknown Rx Miconazole [Monistat Vag Suppos] 100 mg VG QHS supp.vag 04/12/19 Unknown Rx metFORMIN XR [Glucophage XR] 500 mg PO QDDIAB #60 tablet 04/12/19 Unknown Rx Active Meds: Active Medications Acetaminophen (Tylenol) 650 mg PO Q6H PRN PRN Reason: Non Cardiac Pain or Temp>100.5 Acetaminophen/Hydrocodone Bitart ([place] 10/325) 1 each PO Q6H PRN PRN Reason: Pain, Moderate (4-6) Last Admin: 09/13/19 05:44 Dose: 1 each Documented by: Albuterol (Proventil) 2.5 mg IH Q4HRT PRN PRN Reason: Shortness Of Breath Ascorbic Acid (Vitamin C) 500 mg PO BID [facility] Last Admin: 09/13/19 07:37 Dose: 500 mg Documented by: Bisacodyl (Dulcolax) 10 mg TN QDAY PRN PRN Reason: Constipation Dextrose (D50w (25gm) Syringe) 50 ml IV Q30MIN PRN; Protocol PRN Reason: Hypoglycemia Enoxaparin Sodium (Enoxaparin) 40 mg SUB-Q DAILY BA Gabapentin (Gabapentin) 300 mg PO QHS BA Insulin Glargine (Lantus) 40 units SUB-Q QHS BA Last Admin: 09/13/19 00:37 Dose: 40 units Documented by: Insulin Glargine (Lantus) 10 units SUB-Q QAM [facility] Insulin Human Lispro (Humalog) 0 unit SUB-Q ACHS [facility]; Protocol Last Admin: 09/13/19 07:38 Dose: 4 unit Documented by: Metronidazole (Flagyl) 500 mg PO Q8HR [facility]; Protocol Stop: 09/23/19 21:59 Last Admin: 09/13/19 05:44 Dose: 500 mg Documented by: Ondansetron HCl (Zofran Odt) 4 mg PO Q8H PRN PRN Reason: Nausea And Vomiting Pantoprazole Sodium (Protonix) 40 mg PO QDAY [facility] Last Admin: 09/13/19 07:37 Dose: 40 mg Documented by: Polyethylene Glycol (Miralax [id number]) 17 gm PO QDAY PRN PRN Reason: Constipation Zinc Sulfate (Zinc Sulfate) 220 mg PO QDAY [facility] Last Admin: 09/13/19 07:37 Dose: 220 mg Documented by: Review of Systems All systems: negative (ROS negative for 12 systems except as noted below with pertinent positives and negatives.) Constitutional: weakness Ears, nose, mouth and throat: no decreased hearing Cardiovascular: no chest pain, no palpitations Respiratory: no cough, no shortness of breath Gastrointestinal: no abdominal pain, no nausea, no vomiting Musculoskeletal: limitation of motion (Right ring finger deformity), gait dysfunction, prior amputations Integumentary: wounds, no rash, no pruritis Neurological: parathesias Exam - Exam Narrative exam: MUSCULOSKELETAL SPECIALTY EXAM CONSTITUTIONAL: Well developed, well nourished, appropriately groomed, obese LYMPHATIC: No appreciable abnormalities palpable in neck RESPIRATORY: Clear to auscultation bilaterally, no increased work of breathing CARDIOVASCULAR: Regular Rate/ Rhythm, no swelling, edema or tenderness in BUE or BLE. Pulses palpable in all extremities. All extremities warm. GI: + bowel sounds, soft, NTTP, nondistended. INTEGUMENTARY: Normal, no lesion, rash, masses or bruising noted in extremities. Wound visualized, clean dry and intact with tee. MUSCULOSKELETAL: Left BKA, right ring finger deformity, otherwise BUE and BLE normal without defect, crepitus, subluxation, effusion, arthritic changes or TTP. BUE 4+/5, good ROM, with normal tone. RLE 4+/5 good ROM, with normal tone, LLE range of motion slightly decreased due to pain NEURO: CN 2-12 grossly intact. Sensation intact in all extremities. Reflexes 2+ bilaterally at biceps, brachioradialis and patella. No clonus at ankle. Coordination intact in BUE. No tremor noted in 4 extremities. POSTURE and GAIT: Sitting posture good. Balance and gait deferred until seen with therapy. PSYCH: Alert, oriented x3, affect appears normal. Insight appears intact. - Constitutional Vitals: Vital Signs - 12hr 09/13/19 09/13/19 09/13/19 00:13 04:59 07:18 Temperature 98.7 F 98.2 F 97.0 F L Pulse Rate 98 H 89 92 H Respiratory 16 16 18 Rate Blood Pressure 112/67 109/68 108/68 O2 Sat by Pulse 97 98 97 Oximetry 09/13/19 09:19 Temperature Pulse Rate Respiratory Rate Blood Pressure O2 Sat by Pulse 97 Oximetry - Labs CBC & Chem 7: 09/13/19 05:53 09/13/19 05:53 Labs: Laboratory Results - last 72 hr 09/13/19 09/13/19 09/13/19 00:47 05:53 05:53 WBC 8.6 RBC 3.30 L Hgb 8.8 L Hct 26.9 L MCV 82 MCH 27 L MCHC 33 RDW 16.6 H Plt Count 576 H Lymph % (Auto) 25.1 [place] % (Auto) 10.7 H Eos % (Auto) 4.5 H Baso % (Auto) 0.6 Lymph # 2.1 [place] # 0.9 H Eos # 0.4 Baso # 0.0 Seg Neutrophils % 59.1 Seg Neutrophils # 5.1 Sodium 132 L Potassium 4.5 Chloride 96.6 L Carbon Dioxide 24 Anion Gap 16 BUN 16 Creatinine 0.8 Estimated GFR > 60 BUN/Creatinine Ratio 20 Glucose 322 H POC Glucose 369 H Calcium 8.7 Total Bilirubin 0.20 AST 12 ALT 19 Alkaline Phosphatase 145 H Total Protein 7.9 Albumin 2.3 L Albumin/Globulin Ratio 0.4 09/13/19 09/13/19 07:31 11:26 WBC RBC Hgb Hct MCV MCH MCHC RDW Plt Count Lymph % (Auto) [place] % (Auto) Eos % (Auto) Baso % (Auto) Lymph # [place] # Eos # Baso # Seg Neutrophils % Seg Neutrophils # Sodium Potassium Chloride Carbon Dioxide Anion Gap BUN Creatinine Estimated GFR BUN/Creatinine Ratio Glucose POC Glucose 283 H 209 H Calcium Total Bilirubin AST ALT Alkaline Phosphatase Total Protein Albumin Albumin/Globulin Ratio Assessment and Plan Assessment and plan: Patient was assessed and evaluated for Acute Inpatient Rehab Unit. Due to the patients above-mentioned medical complexity, along with decreased functional mobility and self care, this patient continues to require and be appropriate for a comprehensive, multidisciplinary [id number] rehabilitation program. These needs cannot be met in an outpatient or other less intensive setting. The patient would continue to benefit from skilled therapy intervention for at least 3 hours per day, five days a week, with techniques specific to the needs of the patient to improve function, activities of daily living, and reintegration into the community. The patient continues to require: -- OT to improve ROM, self-care, and learn use of adaptive equipment -- PT to improve strength and balance, functional transfers, and ambulation with energy conservation techniques to improve functional mobility -- MANAGER CULINARY to address cognitive deficits and swallowing ability -- 24 hour RN to ensure and prevent skin breakdown, promote progressive independence while ensuring safety, ensure education regarding medications, and incorporation of the rehabilitation at the bedside -- 24 hour Life Science Technical Officer to coordinate this interdisciplinary program, and to manage/prevent complications as a result of the patients medical comorbidities. -Plan of care by day 4 -Weekly team conferences With such a program, there is a reasonable certainty that the goals individualized for this patient can be achieved within the specified length of stay. Left BKA: Continue range of motion, strengthening and gait training. Continue wound care and monitor for any signs of dehiscence or infection. AMPU shield on when out of bed. Seismic Observer once available for molding of residual limb for prosthesis. Diabetes: Continue insulin, monitor glucose levels and adjust as needed. Continue carb controlled diet. We will attempt to increase insulin to twice daily dosing to improve control. Anemia: Check anemia panel and replace components as needed. Monitor hemoglobin, transfuse for less than 7. Sacral wound: Continue wound care and monitor for improvement. This is a chronic sacral wound. Phantom pain: Start gabapentin at night. Discussed desensitization with the patient and she can start performing this as well to try to reduce the phantom pain symptoms. ADL dysfunction: OT will work on improving ability to perform ADLs (including assistive devices) to increase independence and decrease caregiver burden and improve functional transfers and mobility training. Difficulty walking: PT will work on gait training and proper use of assistive devices and advance as appropriate to use of stairs and outside ambulation on uneven surfaces. Unsteadiness on feet: PT will work on improving static and dynamic sitting and standing balance as well as proper use of assistive devices to decrease risk of falls. Abnormality of gait: PT will work to improve safety and efficiency of gait through neuromotor training and gait training along with instruction on proper use of assistive devices. Muscle weakness: PT & OT will work on strengthening exercises to improve functional strength including mixture of closed and open kinetic chain exercises. Debility: PT & OT will work on improving overall functional status to improve participation with ADLs, mobility and social involvement. Fatigue: PT & OT will work on improving endurance through aerobic exercises and therapeutic activity while monitoring patients tolerance for activity and vital signs as needed. DVT ppx: Lovenox Pain: Continue physical modalities in therapy and pain medications as needed to achieve functional pain control. Sleep: Monitor and address as needed. Bowel: Monitor and address as needed. Appetite: Monitor and address as needed. Discharge planning: Pending therapy progress and care plan meeting. Will continue discussion with therapy team, SW, patient and family. Restrictions/ Precautions: Falls WB status: FWB Functional Hx: ADLs: Independent Cognition: Independent Mobility: No AD Barriers to Discharge: Decreased mobility and ability to perform self care, balance deficits, weakness Estimated Length of Stay: 1418 days Discharge Destination: Home with family POST ADMISSION PHYSICIAN EVALUATION I have examined the patient and find that functional status, medical condition and appropriateness for IRF admission are essentially unchanged from those described in the preadmission screening. Will monitor for worsening wound status, dehiscence, wound infection, phantom pain, anemia, DVT/PE, bowel and bladder complications and complications due to diabetes, sacral wound, and electrolyte abnormalities. Will attempt to avoid occurrence of these issues or treat them if they present themselves.
[2019-09-13] MEDS: GABAPENTIN 300 MG CAP PO SCH (21:16)
[2019-09-14] MEDS: metroNIDAZOLE 500 MG TAB PO SCH ×3 (05:44→21:52)
[2019-09-14] MEDS: HYDROcodone/ACETAMINOPHEN 10-325MG TAB PO PRN ×3 (05:47→21:57)
[2019-09-14 06:44] LABS: Hematocrit 27.5 % (30.3-42.9); Hemoglobin 9.4 gm/dl (10.1-14.3); Mean Corpuscular HGB Conc 34 % (30-34); Mean Corpuscular Volume 81 fl (79-97); Platelet Count 628 K/mm3 (140-440); Red Cell Distribution Width 16.7 % (13.2-15.2)
[2019-09-14 06:57] LABS: BUN/Creatinine Ratio 23; Blood Urea Nitrogen 14 mg/dL (7-17); Calcium 8.8 mg/dL (8.4-10.2); Hemolysis Index 0; Iron 53 ug/dL (37-170); Prealbumin 0.189 g/L (0.200-0.400); Total Iron Binding Capacity 161 mcg/dL (250-450)
[2019-09-14] MEDS: INSULIN LISPRO 100 UNIT/ML SUB-Q SCH ×4 (08:36→21:58)
[2019-09-14] MEDS: PANTOPRAZOLE 40 MG TAB PO SCH (08:39)
[2019-09-14] MEDS: ASCORBIC ACID 500 MG TAB PO SCH ×2 (08:39→21:52)
[2019-09-14] MEDS: ZINC SULFATE 220 MG CAP PO SCH (08:39)
[2019-09-14] MEDS ORDERED: INSULIN GLARGINE 100 UNITS/ML SUB-Q SCH (10:00)
[2019-09-14] MEDS: ENOXAPARIN 40 MG/0.4 ML INJ SUB-Q SCH (10:08)
[2019-09-14] MEDS: INSULIN GLARGINE 100 UNITS/ML SUB-Q SCH (21:51)
[2019-09-14] MEDS: GABAPENTIN 300 MG CAP PO SCH (21:52)
[2019-09-15] MEDS: metroNIDAZOLE 500 MG TAB PO SCH ×3 (06:07→21:21)
[2019-09-15] MEDS: INSULIN LISPRO 100 UNIT/ML SUB-Q SCH ×4 (08:49→22:52)
[2019-09-15] MEDS: ENOXAPARIN 40 MG/0.4 ML INJ SUB-Q SCH ×2 (08:49→10:35)
[2019-09-15] MEDS: INSULIN GLARGINE 100 UNITS/ML SUB-Q SCH ×3 (08:50→21:21)
[2019-09-15] MEDS: HYDROcodone/ACETAMINOPHEN 10-325MG TAB PO PRN ×3 (08:53→23:52)
[2019-09-15] MEDS: PANTOPRAZOLE 40 MG TAB PO SCH (08:53)
[2019-09-15] MEDS: ZINC SULFATE 220 MG CAP PO SCH (08:53)
[2019-09-15] MEDS: ASCORBIC ACID 500 MG TAB PO SCH ×2 (08:53→21:21)
--- NOTE | 2019-09-15 19:20 | IRU Plan of Care ---
Interdisciplinary Plan of Care - IP IRU INTERDISCIPLINARY PLAN: [facility] Inpatient Rehab Unit Plan of Care IRU Interdisciplinary Care Plan Start: 09/12/19 19:09 Freq: Admission then PRN Status: Active Protocol: Document 09/15/19 12:48 TH (Rec: 09/15/19 12:50 TH [id number]) Interdisciplinary Problem List Interdisciplinary Problem List Interdisciplinary Problem List Impaired Bathing/Grooming, Query Text:Answers will Trigger Problems Impaired Dressing,Impaired and Outcomes on Worklist. Mobility,Impaired Transfers, Pain Management,Knowledge Deficits,Impaired Skin/Tissue Integrity,Discharge Concerns, Community Reintergration, Impaired Home Management, Impaired Safety,Diabetes Education IRU Interdisciplinary Care Plan Therapy Services Therapy Services Will Include: Physical Therapy,Occupational Query Text:Patient will be seen for a Therapy minimum of 3 hours of daily therapy 5 out of 7 days a week. Therapy intensity may be adjusted within a 7 consecutive day period to effectively serve the individual needs of the patient. Treatment Frequency/Intensity/Duration Treatment Frequency 5 days per week Treatment Intensity 3 hours per day Treatment Duration 14-18 weeks Problem Area: Eating/Swallowing Eating/Swallowing Outcomes Eating/Swallowing Interventions Problem Area: Bathing/Grooming Bathing/Grooming Outcomes Improve [place] w/ Grooming,Improve [place] w/ Bathing Bathing/Grooming Interventions ADL Training,Use of Assistive Devices,Therapeutic Exercise, Therapeutic Activity, Neuromuscular Re-Education, Balance Work,Activity Tolerance Work,Patient/ Caregiver Education Problem Area: Dressing Dressing Outcomes Improve [place] w/ UB Dressing,Improve [place] w/ LB Dressing Dressing Interventions ADL Training,Use of Assistive Devices,Neuromuscular Re- Education,Therapeutic Exercise ,Balance Work,Modalities, Patient/Caregiver Education Problem Area: Mobility Mobility Outcomes Improve [place] w/ Bed Mobility,Improve [place] w/ Ambulation,Improve [place] w/ Wheelchair Mobility Interventions Therapeutic Exercise, Neuromuscular Re-Ed.,Visual/ Perceptual Training,Activity Tolerance Work,Use of Assistive Devices,Patient/ Caregiver Education,Bed Mobility Work,Household Mobility Work,W/C Mobility Work Problem Area: Transfers Transfers Outcomes Improve [place] w/ Bed Transfers,Improve [place] w/ Toilet Transfers,Improve [place] w/ Tub/Shower Transfers Transfers Interventions Transfer Training,Therapeutic Exercise,Neuromuscular Re- Education,Visual/Perceptual Training,Activity Tolerance Work,Modalities,Use of Assistive Devices,Patient/ Caregiver Education Problem Area: Bowel/Bladder Managment Bowel/Bladder Outcomes Bowel/Bladder Interventions Problem Area: Toileting Toileting Outcomes Improve [place] w/ Toileting Toileting Interventions ADL Training,Balance Work, Patient/Caregiver Education Problem Area: Nutrition Nutrition Outcomes Nutrition Interventions Problem Area: Comprehension Comprehension Outcomes Comprehension Interventions Problem Area: Expression Expression Outcomes Expression Interventions Problem Area: Problem Solving Problem Solving Outcomes Problem Solving Interventions Problem Area: Memory Memory Outcomes Memory Interventions Problem Area: Pain Management Pain Management Outcomes Demonstrate/Verbalize Pain Strategies Pain Management Interventions Medication Management,Stress Management,Use of Devices/ Modalities (TENS, hot pack, cold pack, etc.),Positioning/ Turning,Patient/Caregiver Education Problem Area: Knowledge Deficits Knowledge Deficits Outcomes Demonstrate Ability to Manage Blood Glucose,Verbalize Understanding of S/S of Stroke Knowledge Deficits Interventions Disease/Injury/Sx. Intervention Education,Disease Management Education Problem Area: Skin/Tissue Integrity Skin/Tissue Integrity Outcomes Exhibit Healing of Wound/ Incision,Demonstrate Understanding of Pressure Relief,Demonstrate Understanding of Self Wound Care Skin/Tissue Integrity Interventions Skin/Wound Care,Pressure Relief Instruction,Dressing Change Education,Positioning/ Turning Problem Area: Social Interaction Social Interaction Outcomes Social Interaction Interventions Problem Area: Adjustment to Disability Adjustment to Disability Outcomes Adjustment to Disability Interventions Problem Area: Discharge Concerns Discharge Concerns Outcomes Discharge w/ Necessary Equipment,Have Home Health/ Outpatient Services Discharge Concerns Interventions Discharge Planning,Family/ Caregiver Training Problem Area: Community Reintegration Community Reintegration Outcomes Demonstrate Understanding of Community Resources,Able to Re -Enter the Community Community Reintegration Interventions Activity Tolerance Work, Leisure Activity,Work/School Evaluation,Leisure Counseling, Provide Community Resources Problem Area: Home Management Home Management Outcomes Improve [place] w/ Home Management Home Management Interventions Meal Preparation,Clothing Care ,Activity Tolerance Work, Leisure Skills Development, House Cleaning,Telephone Use, Patient/Caregiver Education, Use of TLA Problem Area: Safety Safety Outcomes Provide Safe Environment, Perform Selfcare Safely, Demonstrate Good Safety w/ Transfers/Mobility Safety Interventions Identify Fall Risk,[place] Pt. to Environment,Reduce Environmental Hazards,Neuro Check Assessment,Implement Mechanical Devices, i.e. Chair Alarm (Post Fall Update),Re- Educate Patient/Caregiver for Safety (Post Fall Update) Problem Area: Medication Education Medication Education Outcomes Medication Education Interventions Problem Area: Diabetes Education Diabetes Education Outcomes Demonstrate Knowledge of Resources Availlable in Diabetic Ed. Folder Diabetes Education Interventions Give Pt. Diabetes Education Folder,Discuss Pathophysiology of Diabetes Problem Area: Oxygenation Oxygenation Outcomes Oxygenation Interventions Problem Area: Cardiovascular Cardiovascular Outcomes Cardiovascular Interventions Physician Only Medical Prognosis and Rehabilitation Potential (Completed by Physician) Good rehab potential and good medical prognosis. Poorly controlled diabetes, will attempt to improve control. This plan of care has been developed based on the findings from the pre- admission assessment, post admission physician evaluation, information gathered from the assessments from all therapy disciplines and other pertinent clinicians. The plan of care has been reviewed and discussed in collaboration with the interdisciplinary team. The plan of care will be reviewed and updated at least weekly.
[2019-09-15] MEDS: GABAPENTIN 300 MG CAP PO SCH (21:21)
[2019-09-16] MEDS: metroNIDAZOLE 500 MG TAB PO SCH ×3 (06:27→23:27)
[2019-09-16 08:43] LABS: BUN/Creatinine Ratio 33; Blood Urea Nitrogen 20 mg/dL (7-17); Calcium 8.9 mg/dL (8.4-10.2); Hemolysis Index 3
[2019-09-16 09:32] LABS: Hematocrit 28.7 % (30.3-42.9); Hemoglobin 9.5 gm/dl (10.1-14.3); Mean Corpuscular HGB Conc 33 % (30-34); Mean Corpuscular Volume 82 fl (79-97); Platelet Count 593 K/mm3 (140-440); Red Cell Distribution Width 16.7 % (13.2-15.2)
[2019-09-16] MEDS: INSULIN LISPRO 100 UNIT/ML SUB-Q SCH ×3 (09:35→16:50)
[2019-09-16] MEDS: ZINC SULFATE 220 MG CAP PO SCH (09:55)
[2019-09-16] MEDS: PANTOPRAZOLE 40 MG TAB PO SCH (09:55)
[2019-09-16] MEDS: ENOXAPARIN 40 MG/0.4 ML INJ SUB-Q SCH (09:55)
[2019-09-16] MEDS: ASCORBIC ACID 500 MG TAB PO SCH ×2 (09:55→23:27)
[2019-09-16] MEDS: INSULIN GLARGINE 100 UNITS/ML SUB-Q SCH ×2 (09:59→23:25)
--- NOTE | 2019-09-16 11:02 | Progress Note ---
Subjective Date of service: 09/16/19 Principal diagnosis: Left BKA Interval history: 3-year-old female who presented to the ER with sepsis and shock along with a left lower extremity diabetic foot infection. She had a diabetic foot wound which was being treated with debridement and surgical intervention previously and she was currently on outpatient vancomycin via PICC line. In the past she also had a wound VAC. Wound care noticed increasing discharge from the wound and as her condition worsen she went to the ER for further evaluation she underwent conservative measures including multiple IV antibiotics for attempted salvage. Infectious disease was consulted. Ultimately she underwent a left BKA on September [address] Bryon Fried due to nonviable left lower extremity. Recommendation was to continue IV antibiotics due to severity of her infection. Gram-negative bacilli were cultured and she remains on Flagyl for 11 more days. Her diabetes is poorly controlled and hemoglobin A1c was 10.8. She also has chronic anemia with an acute exacerbation and received 1 unit of packed red blood cells on 09/04 and another unit on 09/05. Patient also experienced hyponatremia on several occasions and it appears that her baseline sodium may be around 1 32-1 33. We will continue to monitor that as well as look to possibly start fluid restrictions if needed. She also had reactive thrombocytosis which is still elevated but less than it was at the outside hospital. Of note the patient does state that her anpushield does not fit well and is hurting her. We have asked Manager [employer] Systems to come out and reassess for proper fit. She also stated to nursing this morning she did not want to take her heparin as this causes her to vomit. I had a long discussion with her concerning the se riousness of not taking DVT prophylaxis in her current condition and she has agreed to take Lovenox. She also endorses phantom pain which is worse at night. We spoke about gabapentin however she does not want to take that during the day due to its side effects and we will schedule this at night. 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 Patient states that this is been there for a fairly long time and tends to wax and wane in its severity. Interval History: Patient is participating in therapy and making reasonable progress. Taking rest breaks as needed. +BM. Denies palpitations, dyspnea, cough, N/V, weakness, or joint pain. Of note, today patient informs me that she is a type I diabetic. R echecked her paperwork from outside hospital and it is listed as type 2 diabetes. Patient states that she just did not mention it there or here and just assumed that it was known. Will update her medications and have discussed with nursing to stop sliding scale. Left BKA: Continue monitoring for wound care. Have notified Manager [employer] Systems to retrofit her ampu-shield. Continue to monitor for any wound breakdown or signs of infection. Continue Flagyl until course is completed. Afebrile Diabetes, type I: We will change insulin schedule back to her home regimen. Discussed with her that she needs to disclose that she is a type I diabetic anytime she is admitted to the hospital. We will adjust medication based on her glucose level and try to improve her glucose control. Anemia: Hemoglobin improving. Iron, folate, vitamin B12 all within normal limits. Sacral wound: Stable. Phantom pain:patient still has phantom pain which is being aided by gabapentin Nutrition: Prealbumin low. Continue supplements and monitor. All records, vitals, labs and medications were reviewed. No other issues per patient, nursing or therapy. Objective - Exam Narrative Exam: MUSCULOSKELETAL SPECIALTY EXAM CONSTITUTIONAL: Well developed, well nourished, appropriately groomed, obese RESPIRATORY: Clear to auscultation bilaterally, no increased work of breathing CARDIOVASCULAR: Regular Rate/ Rhythm, no swelling, edema or tenderness in BUE or BLE. All extremities warm. GI: + bowel sounds, soft, NTTP, nondistended. INTEGUMENTARY: Normal, no lesion, rash, masses or bruising noted in extremities. Wound visualized, clean dry and intact with tee. MUSCULOSKELETAL: Left BKA, right ring finger deformity, otherwise BUE and BLE normal without defect, crepitus, subluxation, effusion, arthritic changes or TTP. BUE 4+/5, good ROM, with normal tone. RLE 4+/5 good ROM, with normal tone, LLE range of motion slightly decreased due to pain NEURO: CN 2-12 grossly intact. Sensation intact in all extremities. Coordination inta ct in BUE. No tremor noted in 4 extremities. POSTURE and GAIT: Sitting posture good. Balance and gait deferred until seen with therapy. PSYCH: Alert, oriented x3, affect appears flattened today. Insight appears intact. - Constitutional Vitals: Vital Signs - 12hr 09/16/19 07:31 Temperature 98.5 F Pulse Rate 92 H Respiratory 18 Rate Blood Pressure 117/76 O2 Sat by Pulse 100 Oximetry - Allied health notes Allied health notes reviewed: nursing, PT, OT - Labs CBC & Chem 7: 09/16/19 08:08 09/16/19 08:08 Labs: Laboratory Results - last 72 hr 09/13/19 09/13/19 09/13/19 11:26 16:35 20:57 WBC RBC Hgb Hct MCV MCH MCHC RDW Plt Count Sodium Potassium Chloride Carbon Dioxide Anion Gap BUN Creatinine Estimated GFR BUN/Creatinine Ratio Glucose POC Glucose 209 H 253 H 262 H Calcium Magnesium Iron TIBC Ferritin Prealbumin Vitamin B12 Folate 09/14/19 09/14/19 09/14/19 06:24 06:24 06:24 WBC 9.3 RBC 3.40 L Hgb 9.4 L Hct 27.5 L MCV 81 MCH 28 MCHC 34 RDW 16.7 H Plt Count 628 H Sodium 134 L Potassium 4.5 Chloride 96.7 L Carbon Dioxide 24 Anion Gap 18 BUN 14 Creatinine 0.6 L Estimated GFR > 60 BUN/Creatinine Ratio 23 Glucose 299 H POC Glucose Calcium 8.8 Magnesium 2.10 Iron 53 TIBC 161 L Ferritin 385.7 Prealbumin 0.189 L Vitamin B12 Folate 09/14/19 09/14/19 09/14/19 06:24 06:24 08:10 WBC RBC Hgb Hct MCV MCH MCHC RDW Plt Count Sodium Potassium Chloride Carbon Dioxide Anion Gap BUN Creatinine Estimated GFR BUN/Creatinine Ratio Glucose POC Glucose 289 H Calcium Magnesium Iron TIBC Ferritin Prealbumin Vitamin B12 583.4 Folate 10.02 09/14/19 09/14/19 09/14/19 12:35 16:24 21:36 WBC RBC Hgb Hct MCV MCH MCHC RDW Plt Count Sodium Potassium Chloride Carbon Dioxide Anion Gap BUN Creatinine Estimated GFR BUN/Creatinine Ratio Glucose POC Glucose 283 H 310 H 210 H Calcium Magnesium Iron TIBC Ferritin Prealbumin Vitamin B12 Folate 09/15/19 09/15/19 09/15/19 06:43 11:19 16:25 WBC RBC Hgb Hct MCV MCH MCHC RDW Plt Count Sodium Potassium Chloride Carbon Dioxide Anion Gap BUN Creatinine Estimated GFR BUN/Creatinine Ratio Glucose POC Glucose 212 H 269 H 245 H Calcium Magnesium Iron TIBC Ferritin Prealbumin Vitamin B12 Folate 09/15/19 09/16/19 09/16/19 20:54 07:42 08:08 WBC 10.3 RBC 3.50 L Hgb 9.5 L Hct 28.7 L MCV 82 MCH 27 L MCHC 33 RDW 16.7 H Plt Count 593 H Sodium Potassium Chloride Carbon Dioxide Anion Gap BUN Creatinine Estimated GFR BUN/Creatinine Ratio Glucose POC Glucose 285 H 222 H Calcium Magnesium Iron TIBC Ferritin Prealbumin Vitamin B12 Folate 09/16/19 08:08 WBC RBC Hgb Hct MCV MCH MCHC RDW Plt Count Sodium 131 L Potassium 4.0 Chloride 95.3 L Carbon Dioxide 22 Anion Gap 18 BUN 20 H Creatinine 0.6 L Estimated GFR > 60 BUN/Creatinine Ratio 33 Glucose 258 H POC Glucose Calcium 8.9 Magnesium Iron TIBC Ferritin Prealbumin Vitamin B12 Folate Assessment and Plan Left BKA: Continue range of motion, strengthening and gait training. Continue wound care and monitor for any signs of dehiscence or infection. AMPU shield on when out of bed. [employer] once available for molding of residual limb for prosthesis. Diabetes type I: Continue insulin, monitor glucose levels and adjust as needed. Continue carb controlled diet. Anemia: Monitor hemoglobin, transfuse for less than 7. Sacral wound: Continue wound care and monitor for improvement. This is a chronic sacral wound. Phantom pain: Start gabapentin at night. Discussed desensitization with the patient and she can start performing this as well to try to reduce the phantom pain symptoms. ADL dysfunction: OT will work on improving ability to perform ADLs (including assistive devices) to increase independence and decrease caregiver burden and improve functional transfers and mobility training. Difficulty walking: PT will work on gait training and proper use of assistive devices and advance as appropriate to use of stairs and outside ambulation on uneven surfaces. Unsteadiness on feet: PT will work on improving static and dynamic sitting and standing balance as well as proper use of assistive devices to decrease risk of falls. Abnormality of gait: PT will work to improve safety and efficiency of gait through neuromotor training and gait training along with instruction on proper use of assistive devices. Muscle weakness: PT & OT will work on strengthening exercises to improve functional strength including mixture of closed and open kinetic chain exercises. Debility: PT & OT will work on improving overall functional status to improve participation with ADLs, mobility and social involvement. Fatigue: PT & OT will work on improving endurance through aerobic exercises and therapeutic activity while monitoring patients tolerance for activity and vital signs as needed. DVT ppx: Lovenox Pain: Continue physical modalities in therapy and pain medications as needed to achieve functional pain control. Sleep: Monitor and address as needed. Bowel: Monitor and address as needed. Appetite: Monitor and address as needed. Discharge planning: Pending therapy progress and care plan meeting. Will continue discussion with therapy team, SW, patient and family. Restrictions/ Precautions: Falls WB status: FWB Functional Hx: ADLs: Independent Cognition: Independent Mobility: No AD Barriers to Discharge: Decreased mobility and ability to perform self care, balance deficits, weakness Estimated Length of Stay: 1418 days Discharge Destination: Home with family
[2019-09-16] MEDS: HYDROcodone/ACETAMINOPHEN 10-325MG TAB PO PRN ×2 (12:34→23:33)
[2019-09-16] MEDS: GABAPENTIN 300 MG CAP PO SCH (23:27)
[2019-09-17] MEDS: metroNIDAZOLE 500 MG TAB PO SCH ×3 (06:32→22:07)
[2019-09-17] MEDS: INSULIN LISPRO 100 UNIT/ML SUB-Q SCH ×3 (08:57→16:54)
[2019-09-17] MEDS: ZINC SULFATE 220 MG CAP PO SCH (08:58)
[2019-09-17] MEDS: ASCORBIC ACID 500 MG TAB PO SCH ×2 (08:58→22:17)
[2019-09-17] MEDS: PANTOPRAZOLE 40 MG TAB PO SCH (08:58)
[2019-09-17] MEDS: ENOXAPARIN 40 MG/0.4 ML INJ SUB-Q SCH (09:00)
[2019-09-17] MEDS: HYDROcodone/ACETAMINOPHEN 10-325MG TAB PO PRN ×2 (12:03→20:25)
--- NOTE | 2019-09-17 14:06 | Progress Note ---
Subjective Date of service: 09/17/19 Principal diagnosis: Left BKA Interval history: 3-year-old female who presented to the ER with sepsis and shock along with a left lower extremity diabetic foot infection. She had a diabetic foot wound which was being treated with debridement and surgical intervention previously and she was currently on outpatient vancomycin via PICC line. In the past she also had a wound VAC. Wound care noticed increasing discharge from the wound and as her condition worsen she went to the ER for further evaluation she underwent conservative measures including multiple IV antibiotics for attempted salvage. Infectious disease was consulted. Ultimately she underwent a left BKA on September [address] Bryon Fried due to nonviable left lower extremity. Recommendation was to continue IV antibiotics due to severity of her infection. Gram-negative bacilli were cultured and she remains on Flagyl for 11 more days. Her diabetes is poorly controlled and hemoglobin A1c was 10.8. She also has chronic anemia with an acute exacerbation and received 1 unit of packed red blood cells on 09/04 and another unit on 09/05. Patient also experienced hyponatremia on several occasions and it appears that her baseline sodium may be around 1 32-1 33. We will continue to monitor that as well as look to possibly start fluid restrictions if needed. She also had reactive thrombocytosis which is still elevated but less than it was at the outside hospital. Of note the patient does state that her anpushield does not fit well and is hurting her. We have asked Stretcher Leveler Operator Hel[employer] to come out and reassess for proper fit. She also stated to nursing this morning she did not want to take her heparin as this causes her to vomit. I had a long discussion with her concerning the se riousness of not taking DVT prophylaxis in her current condition and she has agreed to take Lovenox. She also endorses phantom pain which is worse at night. We spoke about gabapentin however she does not want to take that during the day due to its side effects and we will schedule this at night. 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 Patient states that this is been there for a fairly long time and tends to wax and wane in its severity. Interval History: +BM. Denies palpitations, dyspnea, cough, N/V, weakness, or joint pain. Patient was unable to do therapy today due to excessive sedation and weakness. States that she has not taking gabapentin at home in quite some time and feels "drunk and woozy". Discussed with her that we can decrease the dose and she is okay with that. Left BKA: Continue monitoring for wound care. Have notified Stretcher Leveler Operator Helper to retrofit her ampu-shield. Continue to monitor for any wound breakdown or signs of infection. Continue Flagyl until course is completed. Afebrile Diabetes, type I: We will change insulin schedule back to her home regimen. Blood glucose still greater than 200. Discussed with her on increasing insulin to 19 units pre-meals. Also discussed the amount that she is eating and she states that she is eating a good bit more currently than she does at home. She will likely be able to return to her normal dose when she returns home and returns to her normal eating pattern. Dehydration: Start gentle IV fluids. Monitor for further signs or issues with dehydration. Encouraged oral intake. Anemia: Hemoglobin improving. Iron, folate, vitamin B12 all within normal limits. Phantom pain:patient still has phantom pain which is being aided by gabapentin however she may be intolerant to the current dose as she has not taken this in quite some time. Will decrease the dose and restart tonight at 100 mg nightly. Nutrition: Prealbumin low. Continue supplements and monitor. Sacral wound: Stable. Patient states that it this is healed now. We will find nurse to accompany me to reinspect. This is a chronically opening and closing small wound. All records, vitals, labs and medications were reviewed. No other issues per patient, nursing or therapy. Objective - Exam Narrative Exam: MUSCULOSKELETAL SPECIALTY EXAM CONSTITUTIONAL: Well developed, well nourished, appropriately groomed, obese RESPIRATORY: Clear to auscultation bilaterally, no increased work of breathing CARDIOVASCULAR: Regular Rate/ Rhythm, no swelling, edema or tenderness in BUE or BLE. All extremities warm. GI: + bowel sounds, soft, NTTP, nondistended. INTEGUMENTARY: Normal, no lesion, rash, masses or bruising noted in extremities. Wound visualized, clean dry and intact with tee. MUSCULOSKELETAL: Left BKA, right ring finger deformity, otherwise BUE and BLE normal without defect, crepitus, subluxation, effusion, arthritic changes or TTP. BUE 4+/5, good ROM, with normal tone. RLE 4+/5 good ROM, with normal tone, LLE range of motion slightly decreased due to pain NEURO: CN 2-12 grossly intact. Sensation intact in all extremities. Coordination intact in BUE. No tremor noted in 4 extremities. POSTURE and GAIT: Sitting posture good. Balance and gait deferred until seen with therapy. PSYCH: Alert, oriented x3, affect appears flattened today. Insight appears intact. - Constitutional Vitals: Vital Signs - 12hr 09/17/19 07:23 Temperature 98.0 F Pulse Rate 98 H Respiratory 20 Rate Blood Pressure 104/64 O2 Sat by Pulse 96 Oximetry - Allied health notes Allied health notes reviewed: nursing, PT, OT FIMS assessment as documented by PT/OT/ST: Grooming Patient cleans teeth/dentures: Yes Patient viera/brushes hair: Yes Patient washes, rinses and Yes dries face: Patient washes, rinses and Yes dries hands: Patient performs (no make-up/ 10/11 (100%) shaving): Grooming FIM Score 6. Modified [place] (Needs equipment/device . Extra time.) Social interaction/Memory/Problem solving Social Interaction FIM Score 5. Supervision (Needs supv. <10%. Needs encouragement to participate.) Memory FIM Score 6. Modified [place](Mild difficulty remembering people/routines.) Problem Solving FIM Score 6. Mod. [place] (Mild difficulty or needs more time w/ complex.) Transfers Mode of Locomotion: Wheelchair Bed/Chair/Wheelchair Transfers 5. Supervision (Needs supv. or set-up for FIM Score sliding board, foot rests.) Dressing-Upper body Patient retrieves clothing Yes items: Upper Body Dressing FIM Score 6. Modified [place] (Needs equipment, velcro or pros./orth.) Dressing-lower body Patient retrieves clothing Yes items: Lower Body Dressing FIM Score 5. Supv./Set-Up ([place] sets out clothes or applies pros./orth.) - Labs CBC & Chem 7: 09/16/19 08:08 09/16/19 08:08 Labs: Laboratory Results - last 72 hr 09/14/19 09/14/19 09/15/19 16:24 21:36 06:43 WBC RBC Hgb Hct MCV MCH MCHC RDW Plt Count Sodium Potassium Chloride Carbon Dioxide Anion Gap BUN Creatinine Estimated GFR BUN/Creatinine Ratio Glucose POC Glucose 310 H 210 H 212 H Calcium 09/15/19 09/15/19 09/15/19 11:19 16:25 20:54 WBC RBC Hgb Hct MCV MCH MCHC RDW Plt Count Sodium Potassium Chloride Carbon Dioxide Anion Gap BUN Creatinine Estimated GFR BUN/Creatinine Ratio Glucose POC Glucose 269 H 245 H 285 H Calcium 09/16/19 09/16/19 09/16/19 07:42 08:08 08:08 WBC 10.3 RBC 3.50 L Hgb 9.5 L Hct 28.7 L MCV 82 MCH 27 L MCHC 33 RDW 16.7 H Plt Count 593 H Sodium 131 L Potassium 4.0 Chloride 95.3 L Carbon Dioxide 22 Anion Gap 18 BUN 20 H Creatinine 0.6 L Estimated GFR > 60 BUN/Creatinine Ratio 33 Glucose 258 H POC Glucose 222 H Calcium 8.9 09/16/19 09/16/19 09/16/19 11:42 16:20 21:53 WBC RBC Hgb Hct MCV MCH MCHC RDW Plt Count Sodium Potassium Chloride Carbon Dioxide Anion Gap BUN Creatinine Estimated GFR BUN/Creatinine Ratio Glucose POC Glucose 298 H 250 H 222 H Calcium 09/17/19 09/17/19 06:36 11:21 WBC RBC Hgb Hct MCV MCH MCHC RDW Plt Count Sodium Potassium Chloride Carbon Dioxide Anion Gap BUN Creatinine Estimated GFR BUN/Creatinine Ratio Glucose POC Glucose 226 H 206 H Calcium Assessment and Plan Left BKA: Continue range of motion, strengthening and gait training. Continue wound care and monitor for any signs of dehiscence or infection. AMPU shield on when out of bed. Tank Pumper once available for molding of residual limb for prosthesis. Diabetes type I: Continue insulin, monitor glucose levels and adjust as needed. Continue carb controlled diet. Anemia: Monitor hemoglobin, transfuse for less than 7. Sacral wound: Continue wound care and monitor for improvement. This is a chronic sacral wound. Phantom pain: Start gabapentin at night, reduced dose. Discussed desensitization with the patient and she can start performing this as well to try to reduce the phantom pain symptoms. Dehydration: Gentle IV fluids. Recheck labs. Encouraged p.o. intake ADL dysfunction: OT will work on improving ability to perform ADLs (including assistive devices) to increase independence and decrease caregiver burden and improve functional transfers and mobility training. Difficulty walking: PT will work on gait training and proper use of assistive devices and advance as appropriate to use of stairs and outside ambulation on uneven surfaces. Unsteadiness on feet: PT will work on improving static and dynamic sitting and standing balance as well as proper use of assistive devices to decrease risk of falls. Abnormality of gait: PT will work to improve safety and efficiency of gait th rough neuromotor training and gait training along with instruction on proper use of assistive devices. Muscle weakness: PT & OT will work on strengthening exercises to improve functional strength including mixture of closed and open kinetic chain exercises. Debility: PT & OT will work on improving overall functional status to improve participation with ADLs, mobility and social involvement. Fatigue: PT & OT will work on improving endurance through aerobic exercises and therapeutic activity while monitoring patients tolerance for activity and vital signs as needed. DVT ppx: Lovenox Pain: Continue physical modalities in therapy and pain medications as needed to achieve functional pain control. Sleep: Monitor and address as needed. Bowel: Monitor and address as needed. Appetite: Monitor and address as needed. Discharge planning: Pending therapy progress and care plan meeting. Will continue discussion with therapy team, SW, patient and family. Restrictions/ Precautions: Falls WB status: FWB Functional Hx: ADLs: Independent Cognition: Independent Mobility: No AD Barriers to Discharge: Decreased mobility and ability to perform self care, balance deficits, weakness Estimated Length of Stay: 1418 days Discharge Destination: Home with family
[2019-09-17] MEDS ORDERED: SODIUM CHLORIDE 0.9% 1000 ML 1,000 ML IV SCH (15:00)
[2019-09-17] MEDS: GABAPENTIN 100 MG CAP PO SCH (22:07)
[2019-09-17] MEDS: INSULIN GLARGINE 100 UNITS/ML SUB-Q SCH (22:17)
[2019-09-18] MEDS: metroNIDAZOLE 500 MG TAB PO SCH ×3 (05:10→22:18)
[2019-09-18 08:12] LABS: Mean Corpuscular HGB Conc 33 % (30-34); Mean Corpuscular Volume 82 fl (79-97); Platelet Count 567 K/mm3 (140-440); Red Blood Count 3.67 M/mm3 (3.65-5.03); Red Cell Distribution Width 17.2 % (13.2-15.2)
[2019-09-18] MEDS: INSULIN LISPRO 100 UNIT/ML SUB-Q SCH ×4 (08:29→17:03)
[2019-09-18] MEDS: PANTOPRAZOLE 40 MG TAB PO SCH (08:30)
[2019-09-18] MEDS: ASCORBIC ACID 500 MG TAB PO SCH ×2 (08:30→22:19)
[2019-09-18] MEDS: ZINC SULFATE 220 MG CAP PO SCH (08:30)
[2019-09-18 08:32] LABS: BUN/Creatinine Ratio 35; Blood Urea Nitrogen 21 mg/dL (7-17); Calcium 8.9 mg/dL (8.4-10.2); Hemolysis Index 2
[2019-09-18] MEDS: HYDROcodone/ACETAMINOPHEN 10-325MG TAB PO PRN ×3 (09:06→23:24)
[2019-09-18] MEDS: ENOXAPARIN 40 MG/0.4 ML INJ SUB-Q SCH (09:07)
--- NOTE | 2019-09-18 17:12 | Progress Note ---
Subjective Date of service: 09/18/19 Principal diagnosis: Left BKA Interval history: 3-year-old female who presented to the ER with sepsis and shock along with a left lower extremity diabetic foot infection. She had a diabetic foot wound which was being treated with debridement and surgical intervention previously and she was currently on outpatient vancomycin via PICC line. In the past she also had a wound VAC. Wound care noticed increasing discharge from the wound and as her condition worsen she went to the ER for further evaluation she underwent conservative measures including multiple IV antibiotics for attempted salvage. Infectious disease was consulted. Ultimately she underwent a left BKA on September [address] Bryon Fried due to nonviable left lower extremity. Recommendation was to continue IV antibiotics due to severity of her infection. Gram-negative bacilli were cultured and she remains on Flagyl for 11 more days. Her diabetes is poorly controlled and hemoglobin A1c was 10.8. She also has chronic anemia with an acute exacerbation and received 1 unit of packed red blood cells on 09/04 and another unit on 09/05. Patient also experienced hyponatremia on several occasions and it appears that her baseline sodium may be around 1 32-1 33. We will continue to monitor that as well as look to possibly start fluid restrictions if needed. She also had reactive thrombocytosis which is still elevated but less than it was at the outside hospital. Of note the patient does state that her anpushield does not fit well and is hurting her. We have asked Functional Architect to come out and reassess for proper fit. She also stated to nursing this morning she did not want to take her heparin as this causes her to vomit. I had a long discussion with her concerning the se riousness of not taking DVT prophylaxis in her current condition and she has agreed to take Lovenox. She also endorses phantom pain which is worse at night. We spoke about gabapentin however she does not want to take that during the day due to its side effects and we will schedule this at night. 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 Patient states that this is been there for a fairly long time and tends to wax and wane in its severity. Interval History: +BM. Denies palpitations, dyspnea, cough, N/V, weakness, or joint pain. Patient was unable to do therapy today due to excessive sedation and weakness. Left BKA: Continue monitoring for wound care. Have notified Anne to retrofit her ampu-shield. Continue to monitor for any wound breakdown or signs of infection. Continue Flagyl until course is completed. Afebrile Diabetes, type I: Blood glucose improved on increased dose of insulin. Continue to monitor and adjust as needed. Patient will need to revert to home dose when she returns home to her normal eating pattern and continue to monitor glucose levels and adjust from there. Dehydration: Start gentle IV fluids. Monitor for further signs or issues with dehydration. Encouraged oral intake. Anemia: Hemoglobin improving. Iron, folate, vitamin B12 all within normal limits. Phantom pain: Decrease the dose to 100 mg nightly. Patient tolerating this well and able to perform with therapy today. States pain is somewhat better after this dose Nutrition: Prealbumin low. Continue supplements and monitor. Sacral wound: Stable. Patient states that it this is healed now. All records, vitals, labs and medications were reviewed. No other issues per patient, nursing or therapy. Objective - Exam Narrative Exam: MUSCULOSKELETAL SPECIALTY EXAM CONSTITUTIONAL: Well developed, well nourished, appropriately groomed, obese RESPIRATORY: Clear to auscultation bilaterally, no increased work of breathing CARDIOVASCULAR: Regular Rate/ Rhythm, no swelling, edema or tenderness in BUE or BLE. All extremities warm. GI: + bowel sounds, soft, NTTP, nondistended. INTEGUMENTARY: Normal, no lesion, rash, masses or bruising noted in extremities. Wound visualized, clean dry and intact with tee. MUSCULOSKELETAL: Left BKA, right ring finger deformity, otherwise BUE and BLE normal without defect, crepitus, subluxation, effusion, arthritic changes or TTP. BUE 4+/5, good ROM, with normal tone. RLE 4+/5 good ROM, with normal tone, LLE range of motion slightly decreased due to pain NEURO: CN 2-12 grossly intact. Sensation intact in all extremities. Coordination intact in BUE. No tremor noted in 4 extremities. POSTURE and GAIT: Sitting posture good. Balance appears good. Patient is ambulating with rolling walker without significant loss of balance. Tolerating uneven surfaces. PSYCH: Alert, oriented x3, affect appears flattened today. Insight appears intact. - Constitutional Vitals: Vital Signs - 12hr 09/18/19 09/18/19 07:00 16:26 Temperature 97.3 F L 97.7 F Pulse Rate 89 94 H Respiratory 18 16 Rate Blood Pressure 111/76 95/64 [Right] O2 Sat by Pulse 96 97 Oximetry - Allied health notes Allied health notes reviewed: nursing, PT, OT FIMS assessment as documented by PT/OT/ST: Grooming Patient cleans teeth/dentures: Yes Patient viera/brushes hair: Yes Patient washes, rinses and Yes dries face: Patient washes, rinses and Yes dries hands: Patient performs (no make-up/ 10/11 (100%) shaving): Grooming FIM Score 6. Modified [place] (Needs equipment/device . Extra time.) Social interaction/Memory/Problem solving Social Interaction FIM Score 5. Supervision (Needs supv. <10%. Needs encouragement to participate.) Memory FIM Score 6. Modified [place](Mild difficulty remembering people/routines.) Problem Solving FIM Score 6. Mod. [place] (Mild difficulty or needs more time w/ complex.) Transfers Mode of Locomotion: Wheelchair Bed/Chair/Wheelchair Transfers 5. Supervision (Needs supv. or set-up for FIM Score sliding board, foot rests.) Dressing-Upper body Patient retrieves clothing Yes items: Upper Body Dressing FIM Score 6. Modified [place] (Needs equipment, velcro or pros./orth.) Dressing-lower body Patient retrieves clothing Yes items: Lower Body Dressing FIM Score 5. Supv./Set-Up (Industry sets out clothes or applies pros./orth.) - Labs CBC & Chem 7: 09/18/19 07:33 09/18/19 07:33 Labs: Laboratory Results - last 72 hr 09/15/19 09/16/19 09/16/19 20:54 07:42 08:08 WBC 10.3 RBC 3.50 L Hgb 9.5 L Hct 28.7 L MCV 82 MCH 27 L MCHC 33 RDW 16.7 H Plt Count 593 H Sodium Potassium Chloride Carbon Dioxide Anion Gap BUN Creatinine Estimated GFR BUN/Creatinine Ratio Glucose POC Glucose 285 H 222 H Calcium 09/16/19 09/16/19 09/16/19 08:08 11:42 16:20 WBC RBC Hgb Hct MCV MCH MCHC RDW Plt Count Sodium 131 L Potassium 4.0 Chloride 95.3 L Carbon Dioxide 22 Anion Gap 18 BUN 20 H Creatinine 0.6 L Estimated GFR > 60 BUN/Creatinine Ratio 33 Glucose 258 H POC Glucose 298 H 250 H Calcium 8.9 09/16/19 09/17/19 09/17/19 21:53 06:36 11:21 WBC RBC Hgb Hct MCV MCH MCHC RDW Plt Count Sodium Potassium Chloride Carbon Dioxide Anion Gap BUN Creatinine Estimated GFR BUN/Creatinine Ratio Glucose POC Glucose 222 H 226 H 206 H Calcium 09/17/19 09/17/19 09/18/19 16:01 21:02 07:25 WBC RBC Hgb Hct MCV MCH MCHC RDW Plt Count Sodium Potassium Chloride Carbon Dioxide Anion Gap BUN Creatinine Estimated GFR BUN/Creatinine Ratio Glucose POC Glucose 157 H 200 H 189 H Calcium 09/18/19 09/18/19 09/18/19 07:33 07:33 12:25 WBC 9.4 RBC 3.67 Hgb 10.0 L Hct 30.0 L MCV 82 MCH 27 L MCHC 33 RDW 17.2 H Plt Count 567 H Sodium 135 L Potassium 4.1 Chloride 99.3 Carbon Dioxide 22 Anion Gap 18 BUN 21 H Creatinine 0.6 L Estimated GFR > 60 BUN/Creatinine Ratio 35 Glucose 224 H POC Glucose 141 H Calcium 8.9 09/18/19 16:25 WBC RBC Hgb Hct MCV MCH MCHC RDW Plt Count Sodium Potassium Chloride Carbon Dioxide Anion Gap BUN Creatinine Estimated GFR BUN/Creatinine Ratio Glucose POC Glucose 228 H Calcium Assessment and Plan Left BKA: Continue range of motion, strengthening and gait training. Continue wound care and monitor for any signs of dehiscence or infection. AMPU shield on when out of bed. [employer] once available for molding of residual limb for prosthesis. Diabetes type I: Continue insulin, monitor glucose levels and adjust as needed. Continue carb controlled diet. Anemia: Monitor hemoglobin, transfuse for less than 7. Sacral wound: Continue wound care and monitor for improvement. This is a chronic sacral wound. Phantom pain: Start gabapentin at night, reduced dose. Discussed desensitization with the patient and she can start performing this as well to try to reduce the phantom pain symptoms. Dehydration: Gentle IV fluids. Recheck labs. Encouraged p.o. intake ADL dysfunction: OT will work on improving ability to perform ADLs (including assistive devices) to increase independence and decrease caregiver burden and improve functional transfers and mobility training. Difficulty walking: PT will work on gait training and proper use of assistive devices and advance as appropriate to use of stairs and outside ambulation on uneven surfaces. Unsteadiness on feet: PT will work on improving static and dynamic sitting and standing balance as well as proper use of assistive devices to decrease risk of falls. Abnormality of gait: PT will work to improve safety and efficiency of gait through neuromotor training and gait training along with instruction on proper use of assistive devices. Muscle weakness: PT & OT will work on strengthening exercises to improve func tional strength including mixture of closed and open kinetic chain exercises. Debility: PT & OT will work on improving overall functional status to improve participation with ADLs, mobility and social involvement. Fatigue: PT & OT will work on improving endurance through aerobic exercises and therapeutic activity while monitoring patients tolerance for activity and vital signs as needed. DVT ppx: Lovenox Pain: Continue physical modalities in therapy and pain medications as needed to achieve functional pain control. Sleep: Monitor and address as needed. Bowel: Monitor and address as needed. Appetite: Monitor and address as needed. Discharge planning: Pending therapy progress and care plan meeting. Will continue discussion with therapy team, SW, patient and family. Restrictions/ Precautions: Falls WB status: FWB Functional Hx: ADLs: Independent Cognition: Independent Mobility: No AD Barriers to Discharge: Decreased mobility and ability to perform self care, balance deficits, weakness Estimated Length of Stay: 1418 days Discharge Destination: Home with family
[2019-09-18] MEDS: GABAPENTIN 100 MG CAP PO SCH (22:19)
[2019-09-18] MEDS: INSULIN GLARGINE 100 UNITS/ML SUB-Q SCH (22:19)
[2019-09-19] MEDS: metroNIDAZOLE 500 MG TAB PO SCH ×3 (05:57→21:27)
[2019-09-19] MEDS: INSULIN LISPRO 100 UNIT/ML SUB-Q SCH ×3 (07:51→17:10)
[2019-09-19] MEDS: PANTOPRAZOLE 40 MG TAB PO SCH (07:51)
[2019-09-19] MEDS: ZINC SULFATE 220 MG CAP PO SCH (07:51)
[2019-09-19] MEDS: ASCORBIC ACID 500 MG TAB PO SCH ×2 (07:51→21:27)
[2019-09-19] MEDS: ENOXAPARIN 40 MG/0.4 ML INJ SUB-Q SCH ×2 (08:03→10:00)
[2019-09-19] MEDS: HYDROcodone/ACETAMINOPHEN 10-325MG TAB PO PRN ×2 (10:47→21:27)
--- NOTE | 2019-09-19 16:31 | Progress Note ---
Subjective Date of service: 09/19/19 Principal diagnosis: Left BKA Interval history: 3-year-old female who presented to the ER with sepsis and shock along with a left lower extremity diabetic foot infection. She had a diabetic foot wound which was being treated with debridement and surgical intervention previously and she was currently on outpatient vancomycin via PICC line. In the past she also had a wound VAC. Wound care noticed increasing discharge from the wound and as her condition worsen she went to the ER for further evaluation she underwent conservative measures including multiple IV antibiotics for attempted salvage. Infectious disease was consulted. Ultimately she underwent a left BKA on September [address] Bryon Fried due to nonviable left lower extremity. Recommendation was to continue IV antibiotics due to severity of her infection. Gram-negative bacilli were cultured and she remains on Flagyl for 11 more days. Her diabetes is poorly controlled and hemoglobin A1c was 10.8. She also has chronic anemia with an acute exacerbation and received 1 unit of packed red blood cells on 09/04 and another unit on 09/05. Patient also experienced hyponatremia on several occasions and it appears that her baseline sodium may be around 1 32-1 33. We will continue to monitor that as well as look to possibly start fluid restrictions if needed. She also had reactive thrombocytosis which is still elevated but less than it was at the outside hospital. Of note the patient does state that her anpushield does not fit well and is hurting her. We have asked [employer] Tube Tester to come out and reassess for proper fit. She also stated to nursing this morning she did not want to take her heparin as this causes her to vomit. I had a long discussion with her concerning the se riousness of not taking DVT prophylaxis in her current condition and she has agreed to take Lovenox. She also endorses phantom pain which is worse at night. We spoke about gabapentin however she does not want to take that during the day due to its side effects and we will schedule this at night. 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 Patient states that this is been there for a fairly long time and tends to wax and wane in its severity. Interval History: Patient is participating in therapy and making good progress. Taking rest breaks as needed. +BM. Denies palpitations, dyspnea, cough, N/V, weakness, or joint pain. All records, vitals, labs and medications were reviewed. No other issues per patient, nursing or therapy. Left BKA: Continue monitoring for wound care. Ampu-shield has been fitted. Continue to monitor for any wound breakdown or signs of infection currently wound looks very good and intact with tee. Continue Flagyl until course is completed. Afebrile Diabetes, type I: Blood glucose improved on increased dose of insulin. Continue to monitor and adjust as needed. Patient will need to revert to home dose when she returns home to her normal eating pattern and continue to monitor glucose levels and adjust from there. Dehydration: Monitor for further signs or issues with dehydration. IV fluids as needed. Encouraged oral intake. Anemia: Hemoglobin improving. Iron, folate, vitamin B12 all within normal limits. Phantom pain: Decrease the dose to 100 mg nightly. Patient tolerating this well and able to perform with therapy today. States pain is somewhat better after this dose Nutrition: Prealbumin low. Continue supplements and monitor. Sacral wound: Stable. Patient states that it this is healed now. Mood: Patient has seemed to be either depressed R to have a flat affect at times. This is likely adjustment disorder in her case. Discussed with both her and her about issues of depression. She denies any issues of depression but does say that she is thinking about her future mobility and changes medically as well as the recent loss of her father. I explained that the depressive symptoms could possibly get worse and if they do start interfering with her daily life or if she starts to have any suicidal ideation are ideas of self-harm that she immediately needs to seek help. We discussed options for medications as well as therapy and encouraged her that if she is not feeling better in the next month or 2 to definitely seek help from a PCP and our psychiatrist. is also involved and will monitor as well. All records, vitals, labs and medications were reviewed. No other issues per patient, nursing or therapy. Patient discussed in team conference today. She is making good progress with all ADLs and mobility. We discussed the possibility of sending her home this week however I feel that she would benefit from having a few extra days in order to be independent in her room with monitoring by therapist to ensure that when she does return home she does not have any issues. At this point we would like to get her into outpatient therapy versus home health in order to properly evaluate her and have her available for the highest K level leg as possible. She and the therapist are agreeable with this decision. She will need a wheelchair and 3 in 1 at home. In addition to the 15 minutes I spent talking with the patient and examining her, I spent an extra 30 minutes talking with her and her concerning issues around discharge, equipment, prognosis and next steps regarding the amputation, as well as her management of diabetes. So in total greater than 45 minutes was spent [id number] with the patient performing the exam, counseling and coordinating care and answering her and her 's questions. We also discussed the variations between home health versus outpatient therapy and the needs that she would have going forward and how that we thought she would be more appropriate for outpatient therapy at this point. She will need to continue her follow-up with her surgeon for possible staple removal. She did state that she does not have a PCP and her diabetic supplies are old and not functioning well. Based on this I will find several referrals for her for PCP. I will get her 30 days of prescriptions as well as one refill to give her a total of 60-day supply. I will attempt to get a glucometer and all needed supplies for her as well. This is been problematic in the past due to various insurance companies refusing to cover certain brands which I am not in the loop on who covers what. We also discussed the need for endocrinology follow-up. I think with her type 1 diabetes she would benefit from seeing an flat finisher for consideration of insulin pump usage. She was actually having the same idea, I will write a referral however I do believe that Medicare is going to require that she have a PCP make the actual referral for this. Objective - Exam Narrative Exam: MUSCULOSKELETAL SPECIALTY EXAM CONSTITUTIONAL: Well developed, well nourished, appropriately groomed, obese RESPIRATORY: Clear to auscultation bilaterally, no increased work of breathing CARDIOVASCULAR: Regular Rate/ Rhythm, no swelling, edema or tenderness in BUE or BLE. All extremities warm. GI: + bowel sounds, soft, NTTP, nondistended. INTEGUMENTARY: Normal, no lesion, rash, masses or bruising noted in extremities. Wound visualized, clean dry and intact with tee, no signs of infection, drainage or dehiscence. MUSCULOSKELETAL: Left BKA, right ring finger deformity, otherwise BUE and BLE normal without defect, crepitus, subluxation, effusion, arthritic changes or TTP. BUE 4+/5, good ROM, with normal tone. RLE 4+/5 good ROM, with normal tone, LLE range of motion slightly decreased due to pain NEURO: CN 2-12 grossly intact. Sensation intact in all extremities. Coordination intact in BUE. No tremor noted in 4 extremities. POSTURE and GAIT: Sitting posture good. Balance appears good. Patient is ambulating with rolling walker without significant loss of balance. Tolerating uneven surfaces. PSYCH: Alert, oriented x3, affect appears better today. Insight appears intact. - Constitutional Vitals: Vital Signs - 12hr 09/19/19 07:25 Temperature 97.9 F Pulse Rate 96 H Respiratory 18 Rate Blood Pressure 122/84 O2 Sat by Pulse 99 Oximetry - Allied health notes Allied health notes reviewed: nursing, PT, OT FIMS assessment as documented by PT/OT/ST: Grooming Patient cleans teeth/dentures: Yes Patient viera/brushes hair: Yes Patient washes, rinses and Yes dries face: Patient washes, rinses and Yes dries hands: Patient performs (no make-up/ 10/11 (100%) shaving): Grooming FIM Score 6. Modified [place] (Needs equipment/device . Extra time.) Social interaction/Memory/Problem solving Social Interaction FIM Score 5. Supervision (Needs supv. <10%. Needs encouragement to participate.) Memory FIM Score 6. Modified [place](Mild difficulty remembering people/routines.) Problem Solving FIM Score 6. Mod. [place] (Mild difficulty or needs more time w/ complex.) Transfers Mode of Locomotion: Wheelchair Bed/Chair/Wheelchair Transfers 5. Supervision (Needs supv. or set-up for FIM Score sliding board, foot rests.) Dressing-Upper body Patient retrieves clothing Yes items: Upper Body Dressing FIM Score 6. Modified [place] (Needs equipment, velcro or pros./orth.) Dressing-lower body Patient retrieves clothing Yes items: Lower Body Dressing FIM Score 5. Supv./Set-Up ([place] sets out clothes or applies pros./orth.) - Labs CBC & Chem 7: 09/20/19 10:11 09/20/19 10:11 Labs: Laboratory Results - last 72 hr 09/16/19 09/16/19 09/17/19 16:20 21:53 06:36 WBC RBC Hgb Hct MCV MCH MCHC RDW Plt Count Sodium Potassium Chloride Carbon Dioxide Anion Gap BUN Creatinine Estimated GFR BUN/Creatinine Ratio Glucose POC Glucose 250 H 222 H 226 H Calcium 09/17/19 09/17/19 09/17/19 11:21 16:01 21:02 WBC RBC Hgb Hct MCV MCH MCHC RDW Plt Count Sodium Potassium Chloride Carbon Dioxide Anion Gap BUN Creatinine Estimated GFR BUN/Creatinine Ratio Glucose POC Glucose 206 H 157 H 200 H Calcium 09/18/19 09/18/19 09/18/19 07:25 07:33 07:33 WBC 9.4 RBC 3.67 Hgb 10.0 L Hct 30.0 L MCV 82 MCH 27 L MCHC 33 RDW 17.2 H Plt Count 567 H Sodium 135 L Potassium 4.1 Chloride 99.3 Carbon Dioxide 22 Anion Gap 18 BUN 21 H Creatinine 0.6 L Estimated GFR > 60 BUN/Creatinine Ratio 35 Glucose 224 H POC Glucose 189 H Calcium 8.9 09/18/19 09/18/19 09/18/19 12:25 16:25 22:42 WBC RBC Hgb Hct MCV MCH MCHC RDW Plt Count Sodium Potassium Chloride Carbon Dioxide Anion Gap BUN Creatinine Estimated GFR BUN/Creatinine Ratio Glucose POC Glucose 141 H 228 H 293 H Calcium 09/19/19 09/19/19 09/19/19 07:36 12:33 16:39 WBC RBC Hgb Hct MCV MCH MCHC RDW Plt Count Sodium Potassium Chloride Carbon Dioxide Anion Gap BUN Creatinine Estimated GFR BUN/Creatinine Ratio Glucose POC Glucose 302 H 227 H 357 H Calcium Assessment and Plan Left BKA: Continue range of motion, strengthening and gait training. Continue wound care and monitor for any signs of dehiscence or infection. AMPU shield on when out of bed. Youth Director once available for molding of residual limb for prosthesis. Diabetes type I: Continue insulin, monitor glucose levels and adjust as needed. Continue carb controlled diet. Anemia: Monitor hemoglobin, transfuse for less than 7. Sacral wound: Continue wound care and monitor for improvement. This is a chronic sacral wound. Phantom pain: Start gabapentin at night, reduced dose. Discussed desensitization with the patient and she can start performing this as well to try to reduce the phantom pain symptoms. Dehydration: Gentle IV fluids. Recheck labs. Encouraged p.o. intake Adjustment disorder: Affect appears better today. Have had a prolonged discussion with the patient and her regarding adjustment to major life changes such as an amputation and the loss of her father. Encouraged both of them to continue to monitor her for any major changes in her mood and affect and that if she ever feels like she is reaching her wits and or if the depressive symptoms increased to the point where they start interfering with her day-to-day life that she immediately seek help from PCP and/or psychiatrist. ADL dysfunction: OT will work on improving ability to perform ADLs (including assistive devices) to increase independence and decrease caregiver burden and improve functional transfers and mobility training. Difficulty walking: PT will work on gait training and proper use of assistive devices and advance as appropriate to use of stairs and outside ambulation on uneven surfaces. Unsteadiness on feet: PT will work on improving static and dynamic sitting and standing balance as well as proper use of assistive devices to decrease risk of falls. Abnormality of gait: PT will work to improve safety and efficiency of gait through neuromotor training and gait training along with instruction on proper use of assistive devices. Muscle weakness: PT & OT will work on strengthening exercises to improve functional strength including mixture of closed and open kinetic chain exercises. Debility: PT & OT will work on improving overall functional status to improve participation with ADLs, mobility and social involvement. Fatigue: PT & OT will work on improving endurance through aerobic exercises and therapeutic activity while monitoring patients tolerance for activity and vital signs as needed. DVT ppx: Lovenox Pain: Continue physical modalities in therapy and pain medications as needed to achieve functional pain control. Sleep: Monitor and address as needed. Bowel: Monitor and address as needed. Appetite: Monitor and address as needed. Discharge planning: Pending therapy progress and care plan meeting. Will continue discussion with therapy team, SW, patient and family. Will look to discharge home next Monday with her family. Will push her as much as possible tomorrow and then she will be independent in her room until next week. Restrictions/ Precautions: Falls WB status: FWB Functional Hx: ADLs: Independent Cognition: Independent Mobility: No AD Barriers to Discharge: Decreased mobility and ability to perform self care, balance deficits, weakness Estimated Length of Stay: 1418 days Discharge Destination: Home with family
[2019-09-19] MEDS: GABAPENTIN 100 MG CAP PO SCH (21:27)
[2019-09-19] MEDS: INSULIN GLARGINE 100 UNITS/ML SUB-Q SCH (21:28)
[2019-09-20] MEDS: metroNIDAZOLE 500 MG TAB PO SCH ×3 (06:24→21:37)
[2019-09-20] MEDS: INSULIN LISPRO 100 UNIT/ML SUB-Q SCH ×3 (08:19→17:49)
[2019-09-20] MEDS: ZINC SULFATE 220 MG CAP PO SCH (10:19)
[2019-09-20] MEDS: PANTOPRAZOLE 40 MG TAB PO SCH (10:19)
[2019-09-20] MEDS: ENOXAPARIN 40 MG/0.4 ML INJ SUB-Q SCH (10:19)
[2019-09-20] MEDS: ASCORBIC ACID 500 MG TAB PO SCH ×2 (10:19→21:37)
[2019-09-20 11:06] LABS: Hematocrit 28.1 % (30.3-42.9); Hemoglobin 9.3 gm/dl (10.1-14.3); Mean Corpuscular HGB Conc 33 % (30-34); Mean Corpuscular Volume 82 fl (79-97); Platelet Count 441 K/mm3 (140-440); Red Blood Count 3.42 M/mm3 (3.65-5.03); Red Cell Distribution Width 17.5 % (13.2-15.2)
[2019-09-20 11:23] LABS: BUN/Creatinine Ratio 26; Blood Urea Nitrogen 18 mg/dL (7-17); Calcium 8.8 mg/dL (8.4-10.2); Hemolysis Index 5
--- NOTE | 2019-09-20 14:32 | Progress Note ---
Subjective Date of service: 09/20/19 Principal diagnosis: Left BKA Interval history: 3-year-old female who presented to the ER with sepsis and shock along with a left lower extremity diabetic foot infection. She had a diabetic foot wound which was being treated with debridement and surgical intervention previously and she was currently on outpatient vancomycin via PICC line. In the past she also had a wound VAC. Wound care noticed increasing discharge from the wound and as her condition worsen she went to the ER for further evaluation she underwent conservative measures including multiple IV antibiotics for attempted salvage. Infectious disease was consulted. Ultimately she underwent a left BKA on September [address] Bryon Fried due to nonviable left lower extremity. Recommendation was to continue IV antibiotics due to severity of her infection. Gram-negative bacilli were cultured and she remains on Flagyl for 11 more days. Her diabetes is poorly controlled and hemoglobin A1c was 10.8. She also has chronic anemia with an acute exacerbation and received 1 unit of packed red blood cells on 09/04 and another unit on 09/05. Patient also experienced hyponatremia on several occasions and it appears that her baseline sodium may be around 1 32-1 33. We will continue to monitor that as well as look to possibly start fluid restrictions if needed. She also had reactive thrombocytosis which is still elevated but less than it was at the outside hospital. Of note the patient does state that her anpushield does not fit well and is hurting her. We have asked Pharmacy Services Director to come out and reassess for proper fit. She also stated to nursing this morning she did not want to take her heparin as this causes her to vomit. I had a long discussion with her concerning the se riousness of not taking DVT prophylaxis in her current condition and she has agreed to take Lovenox. She also endorses phantom pain which is worse at night. We spoke about gabapentin however she does not want to take that during the day due to its side effects and we will schedule this at night. 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 Patient states that this is been there for a fairly long time and tends to wax and wane in its severity. Interval History: Patient is participating in therapy and making good progress. Taking rest breaks as needed. +BM. Afebrile. Denies palpitations, dyspnea, cough, N/V, weakness, or joint pain. Will be independent in room over the weekend in preparation for return home. All records, vitals, labs and medications were reviewed. No other issues per patient, nursing or therapy. Left BKA: Continue monitoring for wound care. Ampu-shield has been fitted. Continue to monitor for any wound breakdown or signs of infection currently wound looks very good and intact with tee. Continue Flagyl until course is completed. Afebrile Diabetes, type I: Blood glucose improved on increased dose of insulin. Continue to monitor and adjust as needed. Patient will need to revert to home dose when she returns home to her normal eating pattern and continue to monitor glucose levels and adjust from there. Dehydration: Monitor for further signs or issues with dehydration. IV fluids as needed. Encouraged oral intake. Anemia: Hemoglobin improving. Iron, folate, vitamin B12 all within normal limits. Phantom pain: Decrease the dose to 100 mg nightly. Patient tolerating this well and able to perform with therapy today. States pain is somewhat better after this dose Nutrition: Prealbumin low. Continue supplements and monitor. Sacral wound: Stable. Patient states that it this is healed now. Mood: Patient has seemed to be either depressed R to have a flat affect at times. This is likely adjustment disorder in her case. Discussed with both her and her about issues of depression and they denies any issues of depression. Monitor All records, vitals, labs and medications were reviewed. No other issues per patient, nursing or therapy. Objective - Exam Narrative Exam: MUSCULOSKELETAL SPECIALTY EXAM CONSTITUTIONAL: Well developed, well nourished, appropriately groomed, obese RESPIRATORY: Clear to auscultation bilaterally, no increased work of breathing CARDIOVASCULAR: Regular Rate/ Rhythm, no swelling, edema or tenderness in BUE or BLE. All e xtremities warm. GI: + bowel sounds, soft, NTTP, nondistended. INTEGUMENTARY: Normal, no lesion, rash, masses or bruising noted in extremities. Wound visualized, clean dry and intact with tee, no signs of infection, drainage or dehiscence. MUSCULOSKELETAL: Left BKA, right ring finger deformity, otherwise BUE and BLE normal without defect, crepitus, subluxation, effusion, arthritic changes or TTP. BUE 4+/5, good ROM, with normal tone. RLE 4+/5 good ROM, with normal tone, LLE range of motion slightly decreased due to pain NEURO: CN 2-12 grossly intact. Sensation intact in all extremities. Coordination intact in BUE. No tremor noted in 4 extremities. POSTURE and GAIT: Sitting posture good. Balance appears good. Patient is ambulating with rolling walker without significant loss of balance. Tolerating uneven surfaces. PSYCH: Alert, oriented x3, affect appears normal. Insight appears intact. - Constitutional Vitals: Vital Signs - 12hr 09/20/19 07:39 Temperature 98.2 F Pulse Rate 104 H Respiratory 18 Rate Blood Pressure 97/56 O2 Sat by Pulse 98 Oximetry - Allied health notes Allied health notes reviewed: nursing, PT, ST, OT FIMS assessment as documented by PT/OT/ST: Grooming Patient cleans teeth/dentures: Yes Patient viera/brushes hair: Yes Patient washes, rinses and Yes dries face: Patient washes, rinses and Yes dries hands: Patient performs (no make-up/ / (100%) shaving): Grooming FIM Score 6. Modified [place] (Needs equipment/eliceo ce . Extra time.) Social interaction/Memory/Problem solving Social Interaction FIM Score 5. Supervision (Needs supv. <10%. Needs encouragement to participate.) Memory FIM Score 6. Modified [place](Mild difficulty remembering people/routines.) Problem Solving FIM Score 6. Mod. [place] (Mild difficulty or needs more time w/ complex.) Transfers Mode of Locomotion: Wheelchair Bed/Chair/Wheelchair Transfers 5. Supervision (Needs supv. or set-up for FIM Score sliding board, foot rests.) Dressing-Upper body Patient retrieves clothing Yes items: Patient applies/removes UE Yes prosthesis or orthosis: Upper Body Dressing FIM Score 7. Complete [place] (Dresses self. Gets own clothes.) Dressing-lower body Patient retrieves clothing Yes items: Patient applies/removes LE Yes prosthesis or orthosis: Lower Body Dressing FIM Score 7. Complete [place] (Dresses self. Gets own clothes.) - Labs CBC & Chem 7: 09/20/19 10:11 09/20/19 10:11 Labs: Laboratory Results - last 72 hr 09/17/19 09/17/19 09/18/19 16:01 21:02 07:25 WBC RBC Hgb Hct MCV MCH MCHC RDW Plt Count Sodium Potassium Chloride Carbon Dioxide Anion Gap BUN Creatinine Estimated GFR BUN/Creatinine Ratio Glucose POC Glucose 157 H 200 H 189 H Calcium 09/18/19 09/18/19 09/18/19 07:33 07:33 12:25 WBC 9.4 RBC 3.67 Hgb 10.0 L Hct 30.0 L MCV 82 MCH 27 L MCHC 33 RDW 17.2 H Plt Count 567 H Sodium 135 L Potassium 4.1 Chloride 99.3 Carbon Dioxide 22 Anion Gap 18 BUN 21 H Creatinine 0.6 L Estimated GFR > 60 BUN/Creatinine Ratio 35 Glucose 224 H POC Glucose 141 H Calcium 8.9 09/18/19 09/18/19 09/19/19 16:25 22:42 07:36 WBC RBC Hgb Hct MCV MCH MCHC RDW Plt Count Sodium Potassium Chloride Carbon Dioxide Anion Gap BUN Creatinine Estimated GFR BUN/Creatinine Ratio Glucose POC Glucose 228 H 293 H 302 H Calcium 09/19/19 09/19/19 09/19/19 12:33 16:39 21:20 WBC RBC Hgb Hct MCV MCH MCHC RDW Plt Count Sodium Potassium Chloride Carbon Dioxide Anion Gap BUN Creatinine Estimated GFR BUN/Creatinine Ratio Glucose POC Glucose 227 H 357 H 246 H Calcium 09/20/19 09/20/19 09/20/19 07:51 10:11 10:11 WBC 10.3 RBC 3.42 L Hgb 9.3 L Hct 28.1 L MCV 82 MCH 27 L MCHC 33 RDW 17.5 H Plt Count 441 H Sodium 132 L Potassium 4.0 Chloride 99.1 Carbon Dioxide 20 L Anion Gap 17 BUN 18 H Creatinine 0.7 Estimated GFR > 60 BUN/Creatinine Ratio 26 Glucose 285 H POC Glucose 257 H Calcium 8.8 Assessment and Plan Left BKA: Continue range of motion, strengthening and gait training. Continue wound care and monitor for any signs of dehiscence or infection. AMPU shield on when out of bed. Dental Manager once available for molding of residual limb for prosthesis. Diabetes type I: Continue insulin, monitor glucose levels and adjust as needed. Continue carb controlled diet. Anemia: Monitor hemoglobin, transfuse for less than 7. Sacral wound: Continue wound care and monitor for improvement. This is a chronic sacral wound. Phantom pain: Start gabapentin at night, reduced dose. Discussed desensitization with the patient and she can start performing this as well to try to reduce the phantom pain symptoms. Dehydration: Gentle IV fluids. Recheck labs. Encouraged p.o. intake Adjustment disorder: Affect appears better today. Have had a prolonged discussion with the patient and her regarding adjustment to major life changes such as an amputation and the loss of her father. Encouraged both of them to continue to monitor her for any major changes in her mood and affect and that if she ever feels like she is reaching her wits and or if the depressive symptoms increased to the point where they start interfering with her day-to-day life that she immediately seek help from PCP and/or psychiatrist. ADL dysfunction: OT will work on improving ability to perform ADLs (including assistive devices) to increase independence and decrease caregiver burden and improve functional transfers and mobility training. Difficulty walking: PT will work on gait training and proper use of assistive devices and advance as appropriate to use of stairs and outside ambulation on un even surfaces. Unsteadiness on feet: PT will work on improving static and dynamic sitting and standing balance as well as proper use of assistive devices to decrease risk of falls. Abnormality of gait: PT will work to improve safety and efficiency of gait through neuromotor training and gait training along with instruction on proper use of assistive devices. Muscle weakness: PT & OT will work on strengthening exercises to improve functional strength including mixture of closed and open kinetic chain exercises. Debility: PT & OT will work on improving overall functional status to improve pa rticipation with ADLs, mobility and social involvement. Fatigue: PT & OT will work on improving endurance through aerobic exercises and therapeutic activity while monitoring patients tolerance for activity and vital signs as needed. DVT ppx: Lovenox Pain: Continue physical modalities in therapy and pain medications as needed to achieve functional pain control. Sleep: Monitor and address as needed. Bowel: Monitor and address as needed. Appetite: Monitor and address as needed. Discharge planning: Pending therapy progress and care plan meeting. Will continue discussion with therapy team, SW, patient and family. Will look to discharge home next Monday with her family. Will push her as much as possible tomorrow and then she will be independent in her room until next week. Restrictions/ Precautions: Falls WB status: FWB Functional Hx: ADLs: Independent Cognition: Independent Mobility: No AD Barriers to Discharge: Decreased mobility and ability to perform self care, balance deficits, weakness Estimated Length of Stay: 1418 days Discharge Destination: Home with family
[2019-09-20] MEDS: HYDROcodone/ACETAMINOPHEN 10-325MG TAB PO PRN (17:46)
[2019-09-20] MEDS: INSULIN GLARGINE 100 UNITS/ML SUB-Q SCH (21:37)
[2019-09-20] MEDS: GABAPENTIN 100 MG CAP PO SCH (21:37)
[2019-09-21] MEDS: metroNIDAZOLE 500 MG TAB PO SCH ×3 (05:32→22:27)
[2019-09-21] MEDS: ENOXAPARIN 40 MG/0.4 ML INJ SUB-Q SCH (09:21)
[2019-09-21] MEDS: INSULIN GLARGINE 100 UNITS/ML SUB-Q SCH ×2 (09:22→22:27)
[2019-09-21] MEDS: INSULIN LISPRO 100 UNIT/ML SUB-Q SCH ×3 (09:22→17:31)
[2019-09-21] MEDS: PANTOPRAZOLE 40 MG TAB PO SCH (09:23)
[2019-09-21] MEDS: ASCORBIC ACID 500 MG TAB PO SCH ×2 (09:23→22:27)
[2019-09-21] MEDS: ZINC SULFATE 220 MG CAP PO SCH (09:23)
[2019-09-21] MEDS: HYDROcodone/ACETAMINOPHEN 10-325MG TAB PO PRN ×2 (09:24→22:34)
--- NOTE | 2019-09-21 14:01 | Progress Note ---
Subjective Date of service: 09/21/19 Principal diagnosis: Left BKA Interval history: 3-year-old female who presented to the ER with sepsis and shock along with a left lower extremity diabetic foot infection. She had a diabetic foot wound which was being treated with debridement and surgical intervention previously and she was currently on outpatient vancomycin via PICC line. In the past she also had a wound VAC. Wound care noticed increasing discharge from the wound and as her condition worsen she went to the ER for further evaluation she underwent conservative measures including multiple IV antibiotics for attempted salvage. Infectious disease was consulted. Ultimately she underwent a left BKA on September [address] Bryon Fried due to nonviable left lower extremity. Recommendation was to continue IV antibiotics due to severity of her infection. Gram-negative bacilli were cultured and she remains on Flagyl for 11 more days. Her diabetes is poorly controlled and hemoglobin A1c was 10.8. She also has chronic anemia with an acute exacerbation and received 1 unit of packed red blood cells on 09/04 and another unit on 09/05. Patient also experienced hyponatremia on several occasions and it appears that her baseline sodium may be around 1 32-1 33. We will continue to monitor that as well as look to possibly start fluid restrictions if needed. She also had reactive thrombocytosis which is still elevated but less than it was at the outside hospital. Of note the patient does state that her anpushield does not fit well and is hurting her. We have asked Primer Inserting Machine Adjuster to come out and reassess for proper fit. She also stated to nursing this morning she did not want to take her heparin as this causes her to vomit. I had a long discussion with her concerning the se riousness of not taking DVT prophylaxis in her current condition and she has agreed to take Lovenox. She also endorses phantom pain which is worse at night. We spoke about gabapentin however she does not want to take that during the day due to its side effects and we will schedule this at night. 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 Patient states that this is been there for a fairly long time and tends to wax and wane in its severity. Interval History: Patient is participating in therapy and making good progress. Taking rest breaks as needed. +BM. Afebrile. Denies palpitations, dyspnea, cough, N/V, weakness, or joint pain. Will be independent in room over the weekend in preparation for return home. All records, vitals, labs and medications were reviewed. No other issues per patient, nursing or therapy. Left BKA: Continue monitoring for wound care. Ampu-shield has been fitted. Continue to monitor for any wound breakdown or signs of infection currently wound looks very good and intact with tee. Continue Flagyl until course is completed. Afebrile Diabetes, type I: Blood glucose improved on increased dose of insulin. Continue to monitor and adjust as needed. Patient will need to revert to home dose when she returns home to her normal eating pattern and continue to monitor glucose levels and adjust from there. Dehydration: Monitor for further signs or issues with dehydration. IV fluids as needed. Encouraged oral intake. Anemia: Hemoglobin improving. Iron, folate, vitamin B12 all within normal limits. Phantom pain: Decrease the dose to 100 mg nightly. Patient tolerating this well and able to perform with therapy today. States pain is somewhat better after this dose Nutrition: Prealbumin low. Continue supplements and monitor. Sacral wound: Stable. Patient states that it this is healed now. Mood: Patient has seemed to be either depressed R to have a flat affect at times. This is likely adjustment disorder in her case. Discussed with both her and her about issues of depression and they denies any issues of depression. Monitor Will need referral to PCP and Glucometer script. All records, vitals, labs and medications were reviewed. No other issues per patient, nursing or therapy. Objective - Exam Narrative Exam: MUSCULOSKELETAL SPECIALTY EXAM CONSTITUTIONAL: Well developed, well nourished, appropriately groomed, obese RESPIRATORY: Clear to auscultation bilaterally, no increased work of breathing CARDIOVASCULAR: Regular Rate/ Rhythm, no swelling, edema or tenderness in BUE or BLE. All extremities warm. GI: + bowel sounds, soft, NTTP, nondistended. INTEGUMENTARY: Normal, no lesion, rash, masses or bruising noted in extremities. Wound visualized, clean dry and intact with tee, no signs of infection, drainage or dehiscence. MUSCULOSKELETAL: Left BKA, right ring finger deformity, otherwise BUE and BLE normal without defect, crepitus, subluxation, effusion, arthritic changes or TTP. BUE 4+/5, good ROM, with normal tone. RLE 4+/5 good ROM, with normal tone, LLE range of motion slightly decreased due to pain NEURO: CN 2-12 grossly intact. Sensation intact in all extremities. Coordination intact in BUE. No tremor noted in 4 extremities. POSTURE and GAIT: Sitting posture good. Balance appears good. Patient is ambulating with rolling walker without significant loss of balance. Tolerating uneven surfaces. PSYCH: Alert, oriented x3, affect appears normal. Insight appears intact. - Constitutional Vitals: Vital Signs - 12hr 09/21/19 09/21/19 07:35 11:24 Temperature 97.9 F 98.2 F Pulse Rate 98 H 113 H Respiratory 18 22 Rate Blood Pressure 113/75 109/70 O2 Sat by Pulse 98 100 Oximetry - Allied health notes Allied health notes reviewed: nursing, PT, OT FIMS assessment as documented by PT/OT/ST: Grooming Patient cleans teeth/dentures: Yes Patient viera/brushes hair: Yes Patient washes, rinses and Yes dries face: Patient washes, rinses and Yes dries hands: Patient performs (no make-up/ 4/4 (100%) shaving): Grooming FIM Score 6. Modified [place] (Needs equipment/device . Extra time.) Social interaction/Memory/Problem solving Social Interaction FIM Score 5. Supervision (Needs supv. <10%. Needs encouragement to participate.) Memory FIM Score 6. Modified [place](Mild difficulty remembering people/routines.) Problem Solving FIM Score 6. Mod. [place] (Mild difficulty or needs more time w/ complex.) Transfers Mode of Locomotion: Wheelchair Bed/Chair/Wheelchair Transfers 5. Supervision (Needs supv. or set-up for FIM Score sliding board, foot rests.) Dressing-Upper body Patient retrieves clothing Yes items: Patient applies/removes UE Yes prosthesis or orthosis: Upper Body Dressing FIM Score 7. Complete [place] (Dresses self. Gets own clothes.) Dressing-lower body Patient retrieves clothing Yes items: Patient applies/removes LE Yes prosthesis or orthosis: Lower Body Dressing FIM Score 7. Complete [place] (Dresses self. Gets own clothes.) - Labs CBC & Chem 7: 09/22/19 07:04 09/22/19 07:04 Labs: Laboratory Results - last 72 hr 09/18/19 09/18/19 09/19/19 16:25 22:42 07:36 WBC RBC Hgb Hct MCV MCH MCHC RDW Plt Count Sodium Potassium Chloride Carbon Dioxide Anion Gap BUN Creatinine Estimated GFR BUN/Creatinine Ratio Glucose POC Glucose 228 H 293 H 302 H Calcium 09/19/19 09/19/19 09/19/19 12:33 16:39 21:20 WBC RBC Hgb Hct MCV MCH MCHC RDW Plt Count Sodium Potassium Chloride Carbon Dioxide Anion Gap BUN Creatinine Estimated GFR BUN/Creatinine Ratio Glucose POC Glucose 227 H 357 H 246 H Calcium 09/20/19 09/20/19 09/20/19 07:51 10:11 10:11 WBC 10.3 RBC 3.42 L Hgb 9.3 L Hct 28.1 L MCV 82 MCH 27 L MCHC 33 RDW 17.5 H Plt Count 441 H Sodium 132 L Potassium 4.0 Chloride 99.1 Carbon Dioxide 20 L Anion Gap 17 BUN 18 H Creatinine 0.7 Estimated GFR > 60 BUN/Creatinine Ratio 26 Glucose 285 H POC Glucose 257 H Calcium 8.8 09/20/19 09/20/19 09/20/19 11:53 16:35 21:45 WBC RBC Hgb Hct MCV MCH MCHC RDW Plt Count Sodium Potassium Chloride Carbon Dioxide Anion Gap BUN Creatinine Estimated GFR BUN/Creatinine Ratio Glucose POC Glucose 192 H 175 H 273 H Calcium 09/21/19 09/21/19 07:48 11:24 WBC RBC Hgb Hct MCV MCH MCHC RDW Plt Count Sodium Potassium Chloride Carbon Dioxide Anion Gap BUN Creatinine Estimated GFR BUN/Creatinine Ratio Glucose POC Glucose 213 H 149 H Calcium Assessment and Plan Left BKA: Continue range of motion, strengthening and gait training. Continue wound care and monitor for any signs of dehiscence or infection. AMPU shield on when out of bed. Director Of Agriculture once available for molding of residual limb for prosthesis. Diabetes type I: Continue insulin, monitor glucose levels and adjust as needed. Continue carb controlled diet. Anemia: Monitor hemoglobin, transfuse for less than 7. Sacral wound: Continue wound care and monitor for improvement. This is a chronic sacral wound. Phantom pain: Start gabapentin at night, reduced dose. Discussed desensitization with the patient and she can start performing this as well to try to reduce the phantom pain symptoms. Dehydration: Gentle IV fluids. Recheck labs. Encouraged p.o. intake Adjustment disorder: Affect appears better today. Have had a prolonged discussion with the patient and her regarding adjustment to major life changes such as an amputation and the loss of her father. Encouraged both of them to continue to monitor her for any major changes in her mood and affect and that if she ever feels like she is reaching her wits and or if the depressive symptoms increased to the point where they start interfering with her day-to-day life that she immediately seek help from PCP and/or psychiatrist. ADL dysfunction: OT will work on improving ability to perform ADLs (including assistive devices) to increase independence and decrease caregiver burden and improve functional transfers and mobility training. Difficulty walking: PT will work on gait training and proper use of assistive devices and advance as appropriate to use of stairs and outside ambulation on uneven surfaces. Unsteadiness on feet: PT will work on improving static and dynamic sitting and standing balance as well as proper use of assistive devices to decrease risk of falls. Abnormality of gait: PT will work to improve safety and efficiency of gait through neuromotor training and gait training along with instruction on proper u se of assistive devices. Muscle weakness: PT & OT will work on strengthening exercises to improve f unctional strength including mixture of closed and open kinetic chain exercises. Debility: PT & OT will work on improving overall functional status to improve participation with ADLs, mobility and social involvement. Fatigue: PT & OT will work on improving endurance through aerobic exercises and therapeutic activity while monitoring patients tolerance for activity and vital signs as needed. DVT ppx: Lovenox Pain: Continue physical modalities in therapy and pain medications as needed to achieve functional pain control. Sleep: Monitor and address as needed. Bowel: Monitor and address as needed. Appetite: Monitor and address as needed. Discharge planning: Pending therapy progress and care plan meeting. Will continue discussion with therapy team, SW, patient and family. Will look to discharge home next Monday with her family. Will push her as much as possible tomorrow and then she will be independent in her room until next week. Restrictions/ Precautions: Falls WB status: FWB Functional Hx: ADLs: Independent Cognition: Independent Mobility: No AD Barriers to Discharge: Decreased mobility and ability to perform self care, balance deficits, weakness Estimated Length of Stay: 1418 days Discharge Destination: Home with family
[2019-09-21] MEDS: GABAPENTIN 100 MG CAP PO SCH (22:27)
[2019-09-22] MEDS: metroNIDAZOLE 500 MG TAB PO SCH ×3 (05:16→21:22)
[2019-09-22 07:31] LABS: Hematocrit 28.3 % (30.3-42.9); Hemoglobin 9.4 gm/dl (10.1-14.3); Mean Corpuscular HGB Conc 33 % (30-34); Mean Corpuscular Volume 81 fl (79-97); Platelet Count 411 K/mm3 (140-440); Red Blood Count 3.48 M/mm3 (3.65-5.03); Red Cell Distribution Width 18.1 % (13.2-15.2)
[2019-09-22] MEDS: INSULIN GLARGINE 100 UNITS/ML SUB-Q SCH ×2 (07:46→21:24)
[2019-09-22 07:48] LABS: BUN/Creatinine Ratio 29; Blood Urea Nitrogen 20 mg/dL (7-17); Calcium 8.8 mg/dL (8.4-10.2); Hemolysis Index 0
[2019-09-22] MEDS: ENOXAPARIN 40 MG/0.4 ML INJ SUB-Q SCH ×2 (07:48→11:42)
[2019-09-22] MEDS: ASCORBIC ACID 500 MG TAB PO SCH ×2 (07:48→21:22)
[2019-09-22] MEDS: ZINC SULFATE 220 MG CAP PO SCH (07:48)
[2019-09-22] MEDS: PANTOPRAZOLE 40 MG TAB PO SCH (07:48)
[2019-09-22] MEDS: INSULIN LISPRO 100 UNIT/ML SUB-Q SCH ×3 (07:48→16:50)
[2019-09-22] MEDS: GABAPENTIN 100 MG CAP PO SCH (21:22)
[2019-09-22] MEDS: HYDROcodone/ACETAMINOPHEN 10-325MG TAB PO PRN (21:23)
[2019-09-23] MEDS: ENOXAPARIN 40 MG/0.4 ML INJ SUB-Q SCH ×2 (08:13→09:50)
[2019-09-23] MEDS: ASCORBIC ACID 500 MG TAB PO SCH (08:14)
[2019-09-23] MEDS: PANTOPRAZOLE 40 MG TAB PO SCH (08:14)
[2019-09-23] MEDS: ZINC SULFATE 220 MG CAP PO SCH (08:14)
[2019-09-23] MEDS: INSULIN GLARGINE 100 UNITS/ML SUB-Q SCH (08:14)
[2019-09-23] MEDS: INSULIN LISPRO 100 UNIT/ML SUB-Q SCH (08:14)
[2019-09-23 09:10] VITALS: BP 109/71
[2019-09-23] MEDS ORDERED: GABAPENTIN 100 MG CAP PO SCH (11:32)
[2019-09-23] MEDS ORDERED: INSULIN LISPRO 100 UNIT/ML SUB-Q SCH (12:00)
--- NOTE | 2019-09-23 12:31 | Discharge Summary ---
Providers - Providers Date of Admission: 09/12/19 17:03 Date of discharge: 09/23/19 Attending physician: JOEL BAIN III, MD 09/12/19 17:03 Consult to Dietitian/Nutrition [CONS] Routine Physician Instructions: Reason For Exam: Reason for Consult: Diet education Consult to Wound/ET Nurse [CONS] Routine Reason For Exam: wound eval Occupational Therapy Evaluate and Treat [CONS] Routine Comment: Reason For Exam: ADL dysfunction Physical Therapy Evaluation and Treat [CONS] Routine Comment: Reason For Exam: Mobility Dysfunction 09/12/19 17:06 Consult to Case Management [CONS] Routine Services Needed at Discharge: Home Health Services Notified:: CM notified 09/13/19 11:43 Consult to Mirror Maker [CONS] Routine Reason For Exam: R BKA Primary care physician: PALLIATIVE CARE SPECIALIST Hospitalization Reason for admission: Left BKA Condition: Good Hospital course: 33-year-old female who presented to the ER with sepsis and shock along with a left lower extremity diabetic foot infection. She had a diabetic foot wound which was being treated with debridement and surgical intervention previously and she was currently on outpatient vancomycin via PICC line. In the past she also had a wound VAC. Wound care noticed increasing discharge from the wound and as her condition worsen she went to the ER for further evaluation she underwent conservative measures including multiple IV antibiotics for attempted salvage. Infectious disease was consulted. Ultimately she underwent a left BKA on September [address] Bryon Fried due to nonviable left lower extremity. Recommendation was to continue IV antibiotics due to severity of her infection. Gram-negative bacilli were cultured and she remains on Flagyl for 11 more days. Her diabetes is poorly controlled and hemoglobin A1c was 10.8. She also has chronic anemia with an acute exacerbation and received 1 unit of packed red blood cells on 09/04 and another unit on 09/05. Patient also experienced hyponatremia on several occasions and it appears that her baseline sodium may be around 132-133. We will continue to monitor that as well as look to possibly start fluid restrictions if needed. She also had reactive thrombocytosis which is still elevated but less than it was at the outside hospital. Of note the patient does state that her ampushield does not fit well and is hurting her. We have asked [employer] to come out and reassess for proper fit. She also stated to nursing this morning she did not want to take her heparin as this causes her to vomit. I had a long discussion with her concerning the seriousness of not taking DVT prophylaxis in her current condition and she has agreed to take Lovenox. She also endorses phantom pain which is worse at night. We spoke about gabapentin however she does not want to take that during the day due to its side effects and we will schedule this at night. 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 Patient states that this is been there for a fairly long time and tends to wax and wane in its severity. Left BKA: Continue range of motion, strengthening and gait training. Continue wound care and monitor for any signs of dehiscence or infection. AMPU shield on when out of bed. Cotton Agent once available for molding of residual limb for prosthesis. Flagyl completed. Patient has been afebrile since admission. Wound clean dry and intact with good staple line and no drainage or signs of dehiscence. Contacted surgeon was told that they want her to continue tee for 8 weeks. I scheduled a follow-up for her on October 07 at 10 AM. Had nursing and therapy show her how to properly perform a [id number] wrap with gauze and Reece wrap on her residual limb. Once tee removed she can start utilizing a hand surgeon. Diabetes type I: Continue insulin, monitor glucose levels and adjust as needed. Continue carb controlled diet. Blood glucose has been variable which she attributes to her eating more here than she typically does at home. Late in the admission she mentioned to me that she does not have a PCP. I will write for new diabetic supplies including a glucometer for her. I have given her a referral for PCP. She would also be a good candidate for an insulin pump as a type I diabetic but will need to be evaluated possibly by an endless bed drum sander for this. I will defer referral to an endless bed drum sander by her new PCP. Anemia: Hemoglobin improving, currently 9.4. Iron, folate, vitamin B12 all within normal limits. Sacral wound: Continue wound care and monitor for improvement. This is a chronic sacral wound. Currently has closed. Chronic hyponatremia: Baseline appears to be 132-133. Has been stable this admission, likely related to poorly controlled type 1 diabetes. Phantom pain: Continue gabapentin at night. Discussed desensitization with the patient and she can start performing this as well to try to reduce the phantom pain symptoms. Nutrition: Prealbumin low. Continue supplements and monitor. Adjustment disorder: Affect appears better today. Have had a prolonged discussion with the patient and her regarding adjustment to major life changes such as an amputation and the loss of her father. Encouraged both of them to continue to monitor her for any major changes in her mood and affect and that if she ever feels like the depressive symptoms increased to the point where they start interfering with her day-to-day life that she immediately seek help from PCP and/or psychiatrist. DME: Patient has a mobility deficit that significantly impairs her ability to perform MRADLs and meets requirements for use of a light weight wheelchair due to her diagnosis of a left BKA. Although she is able to ambulate utilizing a rolling walker, she will not have her prosthetic for at least 2 to 3 months and during that time she is unsafe to utilize a walker for performing MRADLs however is appropriate to perform her MRADLs from a wheelchair level. She is willing to utilize the wheelchair in the home for performance of said MRADLs on a regular basis and can operate a lightweight manual wheelchair under her own power. All of these criteria have been tested and documented while the patient has been on the acute rehab unit. Disposition: DC- TO HOME OR SELFCARE Time spent for discharge: >38mins Core Measure Documentation - Palliative Care Palliative Care/ Comfort Measures: Not Applicable - Core Measures Any of the following diagnoses?: none Exam - Physical Exam Narrative exam: MUSCULOSKELETAL SPECIALTY EXAM CONSTITUTIONAL: Well developed, well nourished, appropriately groomed, obese RESPIRATORY: Clear to auscultation bilaterally, no increased work of breathing CARDIOVASCULAR: Regular Rate/ Rhythm, no swelling, edema or tenderness in BUE or BLE. All extremities warm. GI: + bowel sounds, soft, NTTP, nondistended. INTEGUMENTARY: Normal, no lesion, rash, masses or bruising noted in extremities. Wound visualized, clean dry and intact with tee, no signs of infection, drainage or dehiscence. MUSCULOSKELETAL: Left BKA, right ring finger deformity, otherwise BUE and BLE normal without defect, crepitus, subluxation, effusion, arthritic changes or TTP. BUE 4+/5, good ROM, with normal tone. RLE 4+/5 good ROM, with normal tone, LLE range of motion improved NEURO: CN 2-12 grossly intact. Sensation intact in all extremities. Coordination intact in BUE. No tremor noted in 4 extremities. POSTURE and GAIT: Sitting posture good. Balance appears good. Patient is ambulating with rolling walker without significant loss of balance. Tolerating uneven surfaces. PSYCH: Alert, oriented x3, affect appears normal. Insight appears intact. - Constitutional Vitals: Temp Pulse Resp BP Pulse Ox 98.1 F 93 H 18 109/71 98 09/23/19 07:51 09/23/19 07:51 09/23/19 07:51 09/23/19 07:51 09/23/19 07:51 Plan Activity: advance as tolerated, fall precautions, other Diet: diabetic Wound: keep clean and dry, change dressing ([id number] wrap with gauze and Reece wrap. Do not soak left lower extremity in the tub until cleared by surgeon but okay to shower.), other Special Instructions: record blood sugar diary, follow up in rehab, physical therapy, occupational therapy Durable Medical Equipment Needed Upon Discharge: Wheelchair (Light weight with left leg rest) Care Plan Goals: Patient will need to follow-up with a new PCP and establish care. Follow-up appointment has been made with her surgeon for evaluation on October 07 at 10 AM. Approximately 8 weeks after the surgery they will remove tee and at that point she can begin using a hand surgeon from [employer] [facility] and preparing for use of a prosthetic limb. During this time she will continue to utilize a [id number]-yu-prmoy wrap of gauze and Reece wrap to continue to shape her leg. She will also continue working with outpatient therapy to improve her ability to prepare for use of a prosthetic limb. Patient is a type I diabetic and would benefit from use of an insulin pump. She will need a referral from her primary care physician to an endless bed drum sander to start this process. Currently she is poorly controlled and an insulin pump may significantly improve this. Patient also needs to be monitored closely as an outpatient for signs and symptoms of depression. From time to time she is exhibiting flat affect during therapy and this is very likely attributable to adjustment disorder. I have discussed with both her and her that if she ever starts to worsen that she does need to seek professional help immediately. Follow up with: RETA CARPENTER MD [Primary Care Provider] - 7 Days BRYON FRIED MD [Staff Physician] - 10/08/19 10:00 am Prescriptions: Gabapentin 300 mg PO QHS #30 capsule Insulin Detemir (Nf) [Levemir Flextouch (Nf)] 40 unit SQ QHS #2 insuln.pen HYDROcodone/APAP 10-325 [Dieterich 10-325 mg TAB] 1 each PO BID PRN #45 tablet PRN Reason: Pain, Moderate (4-6) Insulin Aspart (Nf) [Novolog Flexpen] 17 unit SQ QAC 1 Days #2 insuln.pen Polyethylene Glycol 3350 [Powderlax] 17 gm PO DAILY PRN #30 powd.pack PRN Reason: Constipation Pantoprazole [Protonix TAB] 40 mg PO QDAY #30 tablet Ascorbic Acid [Vitamin C] 500 mg PO BID #60 tablet Zinc Sulfate 220 mg PO QDAY #30 capsule
[2019-09-23] MEDS ORDERED: GABAPENTIN 300 MG CAP PO SCH (21:00)
== END 2019-09-23 14:35 | disposition home or self-care (01) | DRG 639 ==
LOC: 3A 12:19 → UNDOADMIN 12:19 → 3B 17:03
PROVIDERS: ADMIT Physical Medicine & Rehabilitation; ATTEND Physical Medicine & Rehabilitation
DX: E10.628 Type 1 diabetes mellitus with other skin complications (principal); R53.81 Other malaise; D64.9 Anemia, unspecified; L08.9 Local infection of the skin and subcutaneous tissue, unspecified; S31.000A Unspecified open wound of lower back and pelvis without penetration into retroperitoneum, initial encounter; Z79.899 Other long term (current) drug therapy; Y93.89 Activity, other specified; Z89.429 Acquired absence of other toe(s), unspecified side; Z89.512 Acquired absence of left leg below knee; Z82.49 Family history of ischemic heart disease and other diseases of the circulatory system; Z79.4 Long term (current) use of insulin; Y92.89 Other specified places as the place of occurrence of the external cause; Y99.8 Other external cause status
CPT/HCPCS: 36415; 80048; 80053; 82607; 82728; 82747; 82962; 83550; 83735; 84134; 85025; 85027; 94640; G0378; J1644; J1650; J1815; J7030; Q0162